=== PATIENT | male | born 2000 | race Caucasian/White ===

== ENCOUNTER 2024-08-10 12:20 | Outpatient (AMB) | payer OTHER, SELFPAY ==
--- NOTE | 2024-08-10 12:25 | A.OFFPC_ITS ---
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 His past medical history is significant for night terrors, though the episodes have not been occurring frequently or with significant intensity lately. He denies any active symptoms such as chest pain, shortness of breath, anxiety, depression, or gastrointestinal or urinary abnormalities. The patient also reports no ideations of self-harm or harm to others. Health Maintenance Social History Review of Systems - General: Denies anxiety, depression - Cardiovascular: Denies chest pain - Respiratory: Denies shortness of breat h - Gastrointestinal: Denies blood in stoo l, constipation, diarrhea - Genitourinary: Denies urinary issues - Psychiatric: Denies suicidal ideation, homicidal ideation Physical Exam General: Cooperative, healthy appearing, comfortable, no acute distress and well developed Orientation: Patient oriented x3 Limitations: No limitations Head: Normal to inspection Ears: Hearing grossly normal bilaterally Nose: Normal external nose present Face and sinus: Normal facial exam Eyes: Appearance normal, both eyes and all related structures Neck: Normal visual inspection and Yes full ROM Respiratory: Normal respiratory effort and able to speak in complete sentences. Clear to auscultation bilaterally Cardiovascular: Regular rate and rhythm. Normal S1 and S2 GI: Normal to inspection. Soft to palpation and nontender Skin: No rashes or lesions noted Neuro: Patient oriented x3 Extremities: Normal to inspection Results Plan The management focus for today?s visit was the patient's history of night terrors, which he indicates have improved over time. Given the improvement and lack of new symptoms, no immediate intervention is necessary. Regular follow-ups can be scheduled to monitor any changes in the condition. Discussion Notes During today's visit, I discussed the patient's history of night terrors, noting the recent improvement in symptoms. We reviewed that no active symptoms such as anxiety, depression, or physical concerns are present, contributing to the decision to continue monitoring the condition without specific intervention. Follow-up can be planned if any symptoms reappear or worsen. Patient Instructions - Maintain current lifestyle and note an y changes in the frequency or severity of night terrors. - Monitor for any new symptoms such as a nxiety or sleep disturbances. - Seek medical advice if there is a recu rrence or worsening of night terrors. [facility] Medical History Night terrors Surgical History [place] teeth extracted S/P ASA (advanced surface ablation) surgery PRK (photorefractive keratectomy) Family History Father Diabetes Mother No problems noted. Social History Housing: House Patient Tobacco Use Status: Never used Tobacco e-Cigarette/Vaping Use: Never Used service: Yes Current occupational status: employed Cognitive needs: No Hearing needs: No Vision needs: No Questionnaire PHQ-9 Over the last 2 weeks, how often have you been bothered by any of the following problems? 1. Little interest or pleasure in doing things: not at all 2. Feeling down, depressed, or hopeless: not at all 3. Trouble falling or staying asleep, or sleeping too much: several days 4. Feeling tired or having little energy: several days 5. Poor appetite or overeating: not at all 6. Feeling bad about yourself - or that you are a failure or have let yourself or your family down: not at all 7. Trouble concentrating on things, such as reading the newspaper or watching television: not at all 8. Moving or speaking so slowly that other people could have noticed. Or the opposite - being so fidgety or restless that you have been moving around a lot more than usual: not at all 9. Thoughts that you would be better off or of hurting yourself in some way: not at all Total score: 2 Depression Screening Interpretation: Negative Depression Screening Done: Yes 80801 - PHQ-9 Billing: Yes Source: Developed by Drs. Alcides Herrera, Stephanie Burt, Paul Brunson and colleagues, with an educational cleopatra from [employer] Thrive Questionnaire Date Thrive assessed: 08/10/24 I am a: Patient What is your living situation today?: I have a steady place to live Within the past 12 months, did the food you bought not last and you didn't have the money to get more?: Never true Within the past 12 months, did you worry whether your food would run out before you got money to buy more?: Never true Do you have trouble paying for medicines?: No Do you have trouble getting transportation to medical appointments?: No Do you have trouble paying your heating and electricity bill?: No Do you have trouble taking care of your child, family member or friend?: No Do you have trouble with day-to-day activities such as bathing, preparing meals, shopping, managing finances, etc.?: No Are you currently unemployed and looking for a job?: No Are you interested in more education?: No Please select the resources that you would like help with: None Currently or been in a relationship where the following occur: No concerns reported THRIVE Score: 0 AUDIT C Alcohol Use Questionnaire (AUDIT-C) 1. How often do you have a drink containing alcohol?: Monthly or less 2. How many drinks containing alcohol do you have on a typical day when you are drinking?: 1 or 2 3. How often do you have six or more drinks on one occasion?: Never Total Score: 1 KELLY-7 AMB Questionnaire KELLY-7 Date KELLY - 7 assessed: 08/10/24 Feeling nervous, anxious, or on edge: 0 = Not at all Not being able to stop or control worryin = Not at all Worrying too much about different things: 0 = Not at all Trouble relaxin = Not at all Being so restless that it is hard to sit still: 0 = Not at all Becoming easily annoyed or irritable: 0 = Not at all Feeling afraid as if something awful might happen: 0 = Not at all Total KELLY-7 score (0-4 normal; 5-9 mild; 10-14 moderate; 15-21 severe): 0 Source: Developed by Drs. Alcides Herrera, Stephanie Burt, Paul Brunson and colleagues, with an educational cleopatra from [employer] KELLY-7 Assessment Billing KELLY-7 Assessment Tool: KELLY-7 Assessment 55441 Physical exam (Primary Care) Vital Signs: Last Vital Signs Temp 98.4 F 08/10/24 12:27 Pulse 82 08/10/24 12:27 Resp 18 08/10/24 12:27 BP 116/70 08/10/24 12:27 Pulse Ox 98 08/10/24 12:27 Oxygen Delivery Method Room Air 08/10/24 12:27 BMI result Body Mass Index 21.2 Tobacco/Smoking Status: Tobacco use Status Tobacco use date assessed 08/10/24 08/10/24 12:34 Patient Tobacco Use Status Never used Tobacco 08/10/24 12:34 e-Cigarette/Vaping Use Never Used 08/10/24 12:34 PHQ-9: PHQ-9 Score PHQ-9: Total score 2 08/10/24 12:34 Depression Screening Interpretation: Negative Thrive Assessment: Date of Thrive Assessment Date Thrive assessed 08/10/24 08/10/24 12:34 Currently or been in a relationship where the following occur: No concerns reported Coding Level of Care Code New Pt Prev Care 18-39yr(42059 Diagnoses Physical exam Z00. Additional Codes KELLY-7 Assessment Billing - KELLY-7 Assessment Tool: KELLY-7 Assessment 83502 ([id number]) PHQ-9 - 98406 - PHQ-9 Billing: Yes ([id number]) Assessment & Plan Assessment & Plan (1) Physical exam: Code(s): Z00.00 - Encounter for general adult medical examination without abnormal findings Category: Medical Plan . Orders: Orders 2 Comprehensive [place]. Panel Fast Today Z00.00 - Encounter for general adult medical examination without abnormal findings TSH reflex Free T4 Today Z00.00 - Encounter for general adult medical examination without abnormal findings UA CC w/rflx Micro + Cult Today Z00.00 - Encounter for general adult medical examination without abnormal findings Complete Blood Count Auto Diff Today Z00.00 - Encounter for general adult medical examination without abnormal findings Lipid Panel Today Z00.00 - Encounter for general adult medical examination without abnormal findings
[2024-08-10 12:27] VITALS: BP 116/70; PULSE 82; RESP 18; TEMP 36.9; O2SAT 98; BMI 21.2
--- OUTSIDE RECORDS SUMMARY | 2024-08-10 15:13 | XMS_ITS | Continuity of Care Document ---
Author Organization [facility] Address [address] [place] [address] Phone Care Team Providers Care Office Agent Name Role Phone Randall Barrientos OD Unavailable Unavailable Allergies, Adverse Reactions, Alerts Substance Reaction Status Criticality No Known Allergies Active No Inform ation Procedures Procedure Date Corneal Top Corneal Top Advance Directives Directive Yes / No Effective Date File Name No Information Encounters Encounter Description Practice Location Reason(s) For Visit Diagnoses Date Provider Providers Copied on Encounter [facility], [address] [place], [place], [id number], tel:[phone] [place] [facility] Topography testing only (chief complaint)To pography testing only (chief complaint) Keratoconus Nos Floyd Pereira. [address] [place], [address], [place]. tel:[phone] Referring Provider: Elijah Moralez, [address], [address] [facility], [place], [address]. tel:[phone] Family History Family Member Type Diagnosis Age At Onset No Information Payers Payer name Insurance type Covered democrat ID Authoriza tion(s) No Information Social History Type Description Quantity Date Captured Comments Alcohol Use Details No Caffeine Use Details No Tobacco Use Status Never smoked tobacco 2013 Smoking Status Never smoker Non-Smoking Tobacco Use Details : No Details Available : No Details Available Sex Male Chief Complaint And Reason For Visit From encounter dated '06/12/2014 13:00'. Topography testing only (chief complaint). Description: The 14 Year 3 Months old male presents for evaluation of Topography testing only in the right eye and left eye. Topography testing only (chief complaint) Reason For Referral Reason For Referral No Information History Of Present Illness Encounter Date Complaint History Of Prese nt Illness Topography testing only The 14 Y ear 3 Months old male presents for evaluation of Topography testing only in the right eye and left eye. Functional Status Date Functional Assessmen t No Information Instructions Date Instruction Additional Infor mation - Patient presents f or topography in both eyes. Patients father understands we will only be performing test. Results to be reviewed and interpreted by Dr. Gregg. Results will be mailed out today. Related to Keratoconus Nos - Return in PRN Related to Kerat oconus Nos Assessments Type Assessment Date assessment Keratoconus Nos Patient Care Teams Name Effective Dates (start - stop) Status Members No Information
== END 2024-08-10 14:23 | disposition home or self-care (01) ==
PROVIDERS: PCP Internal Medicine; Visit Provider Nurse Practitioner Family
DX: Z00.00 Encounter for general adult medical examination without abnormal findings (principal)

== ENCOUNTER → 2024-08-10 12:20 | Outpatient (BNVA) | payer OTHER, SELFPAY | PROVIDERS: PCP Internal Medicine; Visit Provider Nurse Practitioner Family | DX: Z00.01 Encounter for general adult medical examination with abnormal findings (principal); R22.1 Localized swelling, mass and lump, neck | CPT/HCPCS: 96127 ==

== ENCOUNTER 2024-08-11 08:18 | Outpatient (REF) | payer OTHER, SELFPAY ==
--- OUTSIDE RECORDS SUMMARY | 2024-08-11 08:45 | XMS_ITS | Continuity of Care Document ---
Author Organization [facility] Address [address] [place] [address] Phone Care Team Providers Care Diamond Expert Name Role Phone Ranadll Barrientos OD Unavailable Unavailable Allergies, Adverse Reactions, Alerts Substance Reaction Status Criticality No Known Allergies Active No Inform ation Procedures Procedure Date Corneal Top Corneal Top Advance Directives Directive Yes / No Effective Date File Name No Information Encounters Encounter Description Practice Location Reason(s) For Visit Diagnoses Date Provider Providers Copied on Encounter [facility], [address] [place], [place], [id number], tel:[phone] [place] - [facility] Topography testing only (chief complaint)To pography testing only (chief complaint) Keratoconus Nos Floyd Pereira. [address] [place], [address], [place]. tel:[phone] Referring Provider: Elijah Moralez, [address], [address] [facility], [place], [address]. tel:[phone] Family History Family Member Type Diagnosis Age At Onset No Information Payers Payer name Insurance type Covered libertarian ID Authoriza tion(s) No Information Social History [...]
--- OUTSIDE RECORDS SUMMARY | 2024-08-11 08:45 | XMS_ITS | Continuity of Care Document ---
Author Name [facility] Organization [facility] Care Team Providers Care Site Manager Name Role Phone [facility] Unavailable Unavailable Problems Combined list of problems from Department of Defense and Veterans Affairs facilities. It does not include entries that were removed or entered in error. 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 Active 4 Diagnosis [facility] Claustrophobia Active Condition [facility] Interrupted sleep Active Condition 0310 C-AF-C-[facility] Nightmares Active Condition 0310C-AF-C- [facility] pain of left knee Active Condition 0094 C[facility] Pain of right knee Active Condition 009 4C[facility] Screening due Active Condition Unknown Organization Sleep deprivation Active Condition 0006 C[facility] Tinnitus Active Condition 00[facility] Vertigo Active Condition [facility] Allergies, Adverse Reactions, Alerts Combined list of allergies from Department of Defense and Veterans Affairs facilities. It does not include entries that were removed or entered in error. Substance Category Reaction Severity Reaction type Status Date Reported Comments Source No Known Allergies Drug allergy (disorder) active 08/24/2022 [facility] Immunizations Combined list of available immunizations from the Department of Defense and Veterans Affairs facilities. Immunization Series Date Given Administered By Site Reaction Lot Number CVX Code Drug Wool Sacker Status Comments Source influenza virus vaccine, inactivated 2022 ESTEPHANIA Alves reina, left (delt oid) [id number] [place], A [employer] complet ed influenza virus vaccine, inactivat ed 04/14/23 Given - Medical Group influenza virus vaccine, inactivated 2021 OMIDLISA GIRALDO Shoul reina, left (delt oid) [id number] [employer] complet ed influenza virus vaccine, inactivat ed 03/13/22 Given 0006C[facility] influenza virus vaccine, inactivated 2020 NELA R Shoul reina, left (delt oid) [id number] 158 Seqirus, A [employer] complet ed influenza virus vaccine, inactivat ed 03/29/21 Given 0006[facility] influenza, injectable, quadrivalent 2020 MARIANN UPTON [id number] 158 complet ed Result Comment: Route: Unknown Manufactu rer: [facility] (SEQ) - Medical Group COVID Vaccine Pfizer 2020 RON YUN Shoul reina, right (delt oid) [id number] PFIZER complet ed COVID Vaccine Pfizer 10/16/20 Given 0006[facility] COVID Vaccine Pfizer 2020 KAITLYNRALEXA NDER Shoul reina, right (delt oid) [id number] 208 PFIZER complet ed COVID Vaccine Pfizer 09/25/20 Given 0006[facility] influenza, injectable, quadrivalent 2019 MARIANN UPTON [id number] 158 complet ed Result Comment: Route: Unknown Manufactu rer: [facility] (SEQ) - Medical Group influenza, injectable, quadrivalent- pf 2018 [id number] 150 [employer] complet ed influenza , injectabl e, quadrival ent-pf 04/29/19 Given Ambulat ory Pharmac y Influenza, injectable, quadrivalent, preservative free 2 2018 [id number] 150 [employer] (SEQ) complet ed Influenza , injectabl e, quadrival ent, preservat leah free DoD influenza, injectable, quadrivalent- pf 2018 [id number] 150 GlaxoSmithKli ne complet ed influenza , injectabl e, quadrival ent-pf 08/12/18 Given Ambulat ory Pharmac y tetanus, diphtheria, acellular pertu is 2018 [id number] 115 [employer] il complet ed tetanus, diphtheri a, acellular pertussis 08/12/18 Given Ambulat ory Pharmac y meningococcal A,C,Y,W-135 (MCV4P) 2018 [id number] 114 sanofi pasteur complet ed meningoco ccal A,C,Y,W-1 35 (MCV4P) 08/12/18 Given Ambulat ory Pharmac y adenovirus vaccine, live 2018 [id number] 143 Teva Pharmaceutica ls complet ed adenoviru s vaccine, live 08/12/18 Given Ambulat ory Pharmac y poliovirus vaccine, inactivated 2018 [id number] 10 sanofi pasteur complet ed polioviru s vaccine, inactivat ed 08/12/18 Given Ambulat ory Pharmac y poliovirus vaccine, inactivated 1 2018 [id number] 10 Sanofi Pasteur (PMC) complet ed polioviru s vaccine, inactivat ed DoD meningococcal polysaccharid e (groups A, C, Y and W-135) diphtheria toxoid conjugate vaccine (MCV4P) 1 2018 [id number] 114 Sanofi Pasteur (PMC) complet ed meningoco ccal polysacch aride (groups A, C, Y and W-135) diphtheri a toxoid conjugate vaccine (MCV4P) DoD tetanus toxoid, reduced diphtheria toxoid, and acellular pertu is vaccine, adsorbed 1 2018 [id number] 115 fitaborateHamlin (SKB) complet ed tetanus toxoid, reduced diphtheri a toxoid, and acellular pertussis vaccine, adsorbed DoD Adenovirus, type 4 and type 7, live, oral 1 2018 [id number] 143 [facility] ([facility]R) complet ed Adenoviru s, type 4 and type 7, live, oral DoD Influenza, injectable, quadrivalent, preservative free 1 2018 [id number] 150 [employer] (SKB) complet ed Influenza , injectabl e, quadrival ent, preservat leah free DoD measles virus vaccine 0 2018 05 () Not Given measles virus vaccine DoD rubella virus vaccine 0 2018 06 () Not Given rubella virus vaccine DoD mumps virus vaccine 0 2018 07 () Not Given mumps virus vaccine DoD varicella virus vaccine 0 2018 21 () Not Given varicella virus vaccine DoD hepatitis B vaccine, unspecified formulation 0 2018 45 () Not Given hepatitis B vaccine, unspecifi ed formulati on DoD hepatitis A vaccine, adult dosage 0 2018 52 () Not Given hepatitis A vaccine, adult dosage DoD Results Combined list of recent chemistry, hematology and other laboratory results from Department of Defense and Veterans Affairs, ranging from 15 months to all on record, depending upon the facility. Order Name Results Value Reference Range Date Interpretation Specimen Comments Source Infectio us Disease HIV-1/O/2 NON REACTIVE 11/17 Interpretiv e Data: INTERPRETAT ION: This method is a screening procedure for the detection of HIV p24 Antigen and Antibodies to HIV-1, including Group O, and/or HIV-2. NON-REACTIV E: HIV-1 antigen and HIV-1 / HIV-2 antibodies were not detected. No laboratory evidence of HIV infection. A negative test result does not exclude the possibility of exposure to or infection with HIV. HIV antibodies and/or p24 antigen may be undetectabl e in some stages of the infection and in some clinical conditions. If acute HIV infection is suspected, consider submitting another specimen to a reference laboratory for HIV-1 RNA. SCREEN REACTIVE - CONFIRMATIO N TO FOLLOW: Possible presence of HIV-1antibo dies, HIV-2 antibodies and/or HIV-1 p24 antigen. Specimen will reflex to the confirmatio n testing that fulfills the Center for Disease Control and Prevention' s HIV diagnostic algorithm. Refer to [facility] Lab Guide for additional information : https://Graffiti[employer]x. health.[facility]/ kj/kx5/EPIL ab/Pages/la b_guide.asp x Testing performed by Jhoana rodriguez. 5600A-[facility] Miscella neous Sendouts Repository Sample Received (11/17/22 8:54 AM) 11/17 N 5600ACivolution AP Specimen s Pathology Report.LC Comment 09/20 Result Comment: . 01 Material submitted: abdomen - RIGHT LOWER ABDOMEN . 01 Clinical history: CLINICAL: 21 Y/O MALE WITH LIFELONG... PRE-OP: CONGENITAL VUS VS TRAUMAT... POST-OP: GINA . 01 * Diagnosis: Right Lower Abdomen, Biopsy: Irritated compound melanocytic nevus. MRV 09/24/2021 1150 Local . 01 Electronica lly signed: Domi España MD, Dermatopath ologist NPI- [id number] . 01 Gross description : RIGHT LOWER ABDOMEN: Received in formalin is 1 piece of SEGMENT OF SKIN measuring 0.9 x 0.6 x 0.3 cm which is inked trisected and submitted in toto in 1 cassette. /SADIA 09/23/2021 2325 Local . 01 Pathologist provided ICD-10: D22.9 . 01 CPT 894983 Performed At: 01 [facility] [address] [place] [address] [place] [address] [id number] Servando Marley MD Ph:[phone] 0006A-[facility] Infectio us Disease SARS-CoV-2 PCR Positive 4 *ABN* (06/24/21 10:03 AM) 06/24 A Interpretiv e Data: Normal Value: NEGATIVE for all targets POSITIVE: Specified target viral RNA detected NEGATIVE: Specified target viral RNA NOT detected Interpretat ion: The Snapstream Xpert Xpress SARS-CoV-2/ Flu/RSV test is a rapid, multiplexed real-time RT-PCR test intended for the simultaneou s qualitative detection and differentia tion of SARS-CoV-2, influenza A, influenza B, and respiratory syncytial virus (RSV) viral RNA in nasopharyng eal swab specimens. SARS-CoV-2, influenza A, influenza B and RSV RNA identified by this test are generally detectable in upper respiratory specimens during the acute phase of infection. Positive results are indicative of the presence of the identified virus, but do not rule out bacterial infection or co-infectio n with other pathogens not detected by the test. Clinical correlation with patient history and other diagnostic information is necessary to determine patient infection status. The agent detected may not be the definite cause of disease. Negative results do not preclude SARS-CoV-2, influenza A virus, influenza B virus and/or RSV infection and should not be used as the sole basis for treatment or other patient management decisions. Negative results must be combined with clinical observation s, patient history, and/or epidemiolog ical information . 0006A-A[facility]x nt [facility] Disease Reason for Test? Screenin g (06/24/21 10:03 AM) 06/24 N 0006A-[facility]x nt [facility] Disease HIV-1/O/2. EPI NON-REAC TIVE 08/29 Result Comment: INTERPRETAT ION(S): This method is a screening procedure for the detection of HIV p24 Antigen and Antibodies to HIV-1, including Group O, and/or HIV-2. NON-REACTIV E: HIV-1 antigen and HIV-1 / HIV-2 antibodies were not detected. No laboratory evidence of HIV infection. A negative test results does not exclude the possibility of exposure to or infection with HIV. HIV antibodies and/or p24 antigen may be undetectabl e in some stages of the infection and in some clinical conditions. If acute HIV infection is suspected, consider submitting another specimen to a reference laboratory for HIV-1 RNA. SCREEN REACTIVE - CONFIRMATIO N TO FOLLOW: Possible presence of HIV-1 antibodies, HIV-2 antibodies and/or HIV-1 p24 antigen. Specimen will reflex to the confirmatio n testing that fulfills the Center for Disease Control and Prevention' s HIV diagnostic algorithm. Refer to [facility] Lab Guide for additional information : [email or web address] .[facility]/k amy/kx5/Aron b/Pages/lab _guide.aspx Testing performed by Jhoana rodriguez. Performed by: Epidemiolog y Laboratory Service [facility] [address] [place] [address], [place] [address] 0006A-[facility] Vital Signs Combined list of inpatient and outpatient Vital Signs from Department of Defense and Veterans Affairs, ranging from 12 months to all on record, depending upon the facility. Vital Sign Value Date Comments Source BP Site Right arm 03/03/2023 13:27:[address] [place] [address] Group Temperature Oral 36.9 [place] 03/03/2023 13:27:[address] [place] [address] Respiratory Rate 16 br/min 03/03/2023 13:27:[address] [place] [address] Blood Pressure Manual Automatic 03/03/2023 13:27:[address] [place] [address] Mean Arterial Pressure, Calc 85 mm[Hg] 03/03/2023 13:27:[address] [place] [address] Systolic Blood Pressure 108 mm[Hg] 03/03/20 13:27:[address] [place] [address] Diastolic Blood Pressure 73 mm[Hg] 023 13:27:[address] [place] [address] Peripheral Pulse Rate 83 bpm 03/03/2023 13:27:[address] [place] [address] Temperature Temporal Artery 36.3 [place] 01/16/2021 01:35:00 [facility] Blood [facility] Manual Automatic 05/28/2020 18:31:00 [facility] BP Site Right arm 05/28/2020 18:31:00 [facility] Temperature Temporal Artery 36.3 [place] 11/20/2020 15:10:00 [facility] Blood Pressure Manual Automatic 04/08/2021 17:43:00 [facility] BP Site Right arm 04/08/2021 17:43:00 [facility] Respiratory Rate 16 br/min 04/08/2021 17:43:00 [facility] Systolic Blood Pressure 100 mm[Hg] 04/08/20 17:43:00 [facility] Diastolic Blood Pressure 63 mm[Hg] 021 17:43:00 [facility] Mean Arterial Pressure, Calc 75 mm[Hg] 04/08/2021 17:43:00 [facility] Peripheral Pulse Rate 76 bpm 04/08/2021 17:43:00 [facility] Peripheral Pulse Rate 71 bpm 08/26/2023 19:22:[address] Mean Arterial Pressure, Calc 83 mm[Hg] 08/26/2023 19:22:[address] Blood Pressure Manual Automatic 08/26/2023 19:22:[address] Group BP Site Right arm 08/26/2023 19:22:[address] Group Respiratory Rate 16 br/min 08/26/2023 19:22:[address] Group Temperature Oral 37.2 [place] 08/26/2023 19:22:[address] Group Systolic Blood Pressure 104 mm[Hg] 08/26/19 24 19:22:[address] Group Diastolic Blood Pressure 72 mm[Hg] 024 19:22:[address] Systolic Blood Pressure 104 mm[Hg] 02/05/20 21 15:57:00 [facility] Diastolic Blood Pressure 69 mm[Hg] 021 15:57:00 [facility] Mean Arterial Pressure, Calc 81 mm[Hg] 02/04/2021 15:57:00 [facility] Peripheral Pulse Rate 75 bpm 02/04/2021 15:57:00 [facility] Respiratory Rate 14 br/min 02/04/2021 15:57:00 [facility] BP Site Right arm 02/04/2021 15:57:00 [facility] Blood Pressure Manual Automatic 02/04/2021 15:57:00 [facility] Temperature Oral 36.6 [place] 06/23/2022 16:31:[address] Group Respiratory Rate 16 br/min 06/23/2022 16:31:00 [facility] Peripheral Pulse Rate 68 bpm 06/23/2022 16:31:00 0094[facility] Mean Arterial Pressure, Calc 83 mm[Hg] 06/23/2022 16:31:00 0094[facility] Systolic Blood Pressure 108 mm[Hg] 06/23/19 16:31:00 0094[facility] Diastolic Blood Pressure 71 mm[Hg] 023 16:31:00 0094[facility] Blood Pressure Manual Automatic 06/23/2022 16:31:00 0094[facility] BP Site Left arm 06/23/2022 16:31:00 0094[facility] Temperature Temporal Artery 36.6 [place] 05/07/2021 10:26:00 [facility] Systolic Blood Pressure 106 mm[Hg] 05/07/20 10:26:[address] [place] [address] Diastolic Blood Pressure 67 mm[Hg] 021 10:26:00 [facility] Peripheral Pulse Rate 64 bpm 05/07/2021 10:26:00 [facility] Respiratory Rate 14 br/min 05/07/2021 10:26:00 [facility] Peripheral Pulse Rate 60 bpm 09/15/2022 14:00:00 009[facility] Mean Arterial Pressure, Calc 73 mm[Hg] 09/15/2022 14:00:00 [facility] Respiratory Rate 16 br/min 09/15/2022 14:00:00 [facility] Temperature Oral 36.5 [place] 09/15/2022 14:00:00 009-[facility] BP Site Right arm 09/15/2022 14:00:00 0094[facility] Blood Pressure Manual Automatic 09/15/2022 14:00:00 009-[facility] Systolic Blood Pressure 94 mm[Hg] 09/16/19 14:00:00 0094[facility] Diastolic Blood Pressure 63 mm[Hg] 023 14:00:00 0094[facility] Respiratory Rate 14 br/min 10/14/2023 15:43:00 0094[facility] Temperature Oral 37.0 [place] 10/14/2023 15:43:00 009[facility] Blood Pressure Manual Automatic 10/14/2023 15:43:[address] [place] [address] Group BP Site Left arm 10/14/2023 15:43:00 [facility] Systolic Blood Pressure 116 mm[Hg] 10/14/19 24 15:43:[address] [place] [address] Group Diastolic Blood Pressure 81 mm[Hg] 024 15:43:[address] [place] [address] Group Peripheral Pulse Rate 83 bpm 10/14/2023 15:43:[address] [place] [address] Group Mean Arterial Pressure, Calc 93 mm[Hg] 10/14/2023 15:43:[address] [place] [address] Group Systolic Blood Pressure 107 mm[Hg] 05/22/20 15:54:[address] [place] [address] Group Diastolic Blood Pressure 71 mm[Hg] 022 15:54:[address] [place] [address] Group Temperature Oral 36.7 [place] 05/22/2022 15:54:[address] [place] [address] Group BP Site Left arm 05/22/2022 15:54:[address] [place] [address] Group Blood Pressure Manual Automatic 05/22/2022 15:54:[address] [place] [address] Group Mean Arterial Pressure, Calc 83 mm[Hg] 05/22/2022 15:54:[address] [place] [address] Group Peripheral Pulse Rate 75 bpm 05/22/2022 15:54:[address] [place] [address] Group Respiratory Rate 14 br/min 05/22/2022 15:54:[address] [place] [address] Group Mean Arterial Pressure, Calc 89 mm[Hg] 11/21/2020 22:09:[address] [place] [address] Temperature Oral 36.5 [place] 11/21/2020 22:09:[address] [place] [address] Systolic Blood Pressure Sitting 118 mm[Hg] 11/21/2020 22:09:[address] [place] [address] Diastolic Blood Pressure Sitting 73 mm[Hg] 11/21/2020 22:09:[address] [place] [address] Systolic Blood Pressure Supine 118 mm[Hg] 11/21/2020 22:09:[address] [place] [address] Diastolic Blood Pressure Supine 77 mm[Hg] 11/21/2020 22:09:[address] [place] [address] Systolic Blood Pressure Standing 120 mm[Hg] 11/21/2020 22:09:[address] [place] [address] Diastolic Blood Pressure Standing 79 mm[Hg] 11/21/2020 22:09:[address] [place] [address] Systolic Blood Pressure 100 mm[Hg] 01/24/20 21 16:52:[address] [place] [address] Diastolic Blood Pressure 58 mm[Hg] 021 16:52:[address] [place] [address] Blood Pressure Manual Automatic 01/23/2021 16:52:[address] [place] [address] BP Site Right arm 01/23/2021 16:52:[address] [place] [address] Respiratory Rate 12 br/min 01/23/2021 16:52:[address] [place] [address] Peripheral Pulse Rate 77 bpm 01/23/2021 16:52:[address] [place] [address] Mean Arterial Pressure, Calc 72 mm[Hg] 01/23/2021 16:52:[address] [place] [address] Encounters Combined list of: 1) Encounters from Department of Veterans Affairs facilities going backup to the last 18 months, not all VA inpatient encounters are included; 2) Encounters from the Department of Defense facilities going backup to 280 months. Location Location Details Encounter Type Encounter Number Reason For Visit Attending Provider ADM Date DC Date Status Disposition Source [place] [address](Opt ometry Clinic [facility]) OUTPATIENT [id number] CAROLINE FOOTE 08/16 Released w/o Limitations [facility] [place] [address](O ptometr y Clinic [facility]) [place] [address](Hea ring Conservat ion, BMT) OUTPATIENT [id number] MANDO BAUM 08/16 Released w/o Limitations [facility] [place] [address](H earing Conserv ation, BMT) [facility] [place] [address]([facility]) OUTPATIENT [id number] Notes Entered by: NAHUM ISAACS 18 Aug 2018 1337 ------- ------- ------- ------- -- Blood in stool YAQUELINZAFAR AMADOR Crystal 08/18 Released w/o Limitations [facility] [place] [address]([facility] sangita) [facility] [place] [address]([facility]) OUTPATIENT [id number] Notes Entered by: Sangita ESTEBAN 26 Aug 2018 1055 ------- ------- ------- ------- -- *Abdomi nal Discomf ort* JUDY GARCIA V 08/26 Released w/o Limitations [facility] [place] [address]([facility] sangita) [place] [address]([facility] [place]) OUTPATIENT [id number] fiber nutriti on VERN TEJEDA 08/27 Released w/o Limitations [facility] [place] [address](N utritio nal Medicin e, [place]) [place] [place] [id number] OSS/ALA SKA/AF MUSHT[employer] STARR 10/29 Released w/o Limitations [place]) [place]) OUTPATIENT [id number] KATE PIRES 12/06 Released w/o Limitations [place]) [employer]([facility]) OUTPATIENT [id number] ASM OHA (AUDIO) RAFA TORRES 05/26 Released w/o Limitations [employer](O ccupati onal Health) [employer](BOM C 1) OUTPATIENT [id number] Notes Entered by: RASHMI WOOD 27 May 2019 1326 ------- ------- ------- ------- -- DENTAL PHA/MHA ZENOBIA SINGER 05/27 Released w/o Limitations [employer]([facility] 1) [employer](Opt ometry Clinic) OUTPATIENT [id number] Annual exam JUAN ALBERTO LOVETT 06/13 Released w/o Limitations [employer](O ptometr y Clinic) [employer](Opt ometry Clinic) OUTPATIENT [id number] CL F/U JUAN ALBERTO LOVETT 11/22 Released w/o Limitations [employer](O ptometr y Clinic) [facility] Between Visit [id number] 09/13 Discharge Disposition: Home or Self Care - Medical Group [facility] Clinic [id number] EXAM, FORMAL OCCUPAT IONAL HEALTH PROGRAM INCLUDI HEARING CONSERV ATION PROGRAM , MARYLIN Jackson FOR CONTINU ED 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 CHLOE SJAMES 10/13 Discharge Disposition: Home or Self Care - Medical Group [facility] Group Dental [id number] JUVE JULIAN ESTEVES 10/18 Discharge Disposition: Home or Self Care - Medical Group 0AF- C- [facility] [employer] Between Visit [id number] 05/25 Discharge Disposition: Home or Self Care 0310C-A F-C-66t h [facility] [employer] 0310C-AF- C- [facility] [employer] Clinic [id number] Nightma re disorde r,Insom kristen, unspeci fied,EX AM/ASSE SSMENT, OCCUPAT IONAL, PRODUCTION HAND PERIODI C HEALTH ASSESSM ENT (SILVIA) GAURANG COTTO 05/27 Discharge Disposition: Home or Self Care 0310C-A F-C-[facility]t [facility] [employer] Procedures Combined list of: 1) Procedures from Department of Veterans Affairs facilities going back up to thelast 18 months, not all VA non-surgical procedures are included; 2) All procedures from the Department of Defense facilities. Procedure Procedure Type Code Date Perfomer Comments Sourc e PATIENT EDUCATION, NOT OTHERWISE CLASSIFIED, NON-PHYSICIAN PROVIDER, GROUP, PER SESSION [facility] MEDICAL NUTRITION THERAPY; INITIAL ASSESSMENT AND INTERVENTION, INDIVIDUAL, [id number] WITH THE PATIENT, EACH 15 MINUTES [facility] PURE TONE AUDIOMETRY (THRESHOLD); AIR ONLY [facility] SCREENING TEST OF VISUAL ACUITY, QUANTITATIVE, BILATERAL [facility] OPHTHALMOLOGICAL SERVICES: MEDICAL EXAMINATION AND EVALUATION, WITH INITIATION OR CONTINUATION OF DIAGNOSTIC AND TREATMENT PROGRAM; INTERMEDIATE, ESTABLISHED PATIENT [facility] FITTING OF SPECTACLES, EXCEPT FOR APHAKIA; MONOFOCAL [facility] ADMINISTRATION OF PATIENT-FOCUSED HEALTH RISK ASSESSMENT INSTRUMENT (EG, HEALTH HAZARD APPRAISAL) WITH SCORING AND DOCUMENTATION, PER STANDARDIZED INSTRUMENT [facility] SCREENING TEST OF VISUAL ACUITY, QUANTITATIVE, BILATERAL [facility] Medical Nutrition Therapy Initial A e ment, Intervention Medical Nutrition Therapy Initial Assessment, Intervention [id number] VERN TEJEDA [facility] Threshold Audiogram (Pure Tone) Threshold Audiogram (Pure Tone) [id number] MANDO BAUM [facility] Spectacles Services Fitting Monofocals (Not For Aphakia) Spectacles Services Fitting Monofocals (Not For Aphakia) 86336 019 MARYAM SCHULTZ Screening Test Of Visual Acuity, Quantitative, Bilateral Screening Test Of Visual Acuity, Quantitative, Bilateral [id number] 019 MARYAM SCHULTZ [facility] Screening Test Of Visual Acuity, Quantitative, Bilateral Screening Test Of Visual Acuity, Quantitative, Bilateral 26902 RAFA TORRES [facility] Ophthalmological New Patient Start Comprehensive Care Ophthalmological New Patient Start Comprehensive Care 36488 JUAN ALBERTO LOVETT Determination Of Refractive State Determination Of Refractive State 39239 JUAN ALBERTO LOVETT Spectacles Services Fitting Monofocals (Not For Aphakia) Spectacles Services Fitting Monofocals (Not For Aphakia) 71267 JUAN ALBERTO LOVETT Prescription & Fitting Bilateral Corneal Lenses (Not Aphakia Prescription & Fitting Bilateral Corneal Lenses (Not Aphakia 28555 JUAN ALBERTO LOVETT Ophthalmological Prior Patient Start Intermediate Level Care Ophthalmological Prior Patient Start Intermediate Level Care 08236 JUAN ALBERTO LOVETT Patient education, not otherwise cla ified, non-physician provider, group, per se KATE Christie [facility] [id number] 0006C-Joint [facility] PRK - October 2020 [id number]-Alyx nt [facility] Social History Combined list of available smoking, tobacco, and other social history from Department of Defense and Veterans Affairs facilities. Social History Type Response Date Comment Sour e Sex Representation Male 01/18/2020 Unknow n Organization This section is an empty social history section. DoD Tobacco Cigarette use: Never-cigarette user. Other Tobacco use: Never-other tobacco user (not cigarettes). Ambulatory Pharmacy Sexual Orientation Ambula tory Pharmacy Gender identity Ambulator y Pharmacy Assessment and Plan Combined list of future care activities from Department of Defense and Veterans Affairs facilities (e.g., assessment and plan notes, appointments, orders, and referrals). Additional future care activities may be listed in the Plan of Care section. Result Assessment and Plan Date Source Assessment and Plan Extracted from:Title : Annual [facility] MHA/PHA Author: DEMARCO REY NP Date: 05/27/24 1.?EXAM/ASSESSMENT, OCCUPATIONAL, PRODUCTION HAND PERIODIC HEALTH ASSESSMENT (PHA) This encounter contains a review of the SM's chronic and active medical conditions since the date of the last PHA on file. SM present for virtual encounter. All age/gender specific CPS IAW USPSTF are up to date. ? IMR- Green.? Profile- none active.? ? +WWQ.? ? This MHA/PHA is for screening purposes only, and is Not to replace a face to face appointment with PCM or other specialty care?if needed. ? SM was informed that?if there are any?health concerns,?it is the SM's responsibility to schedule an appointment with PCM or specialty?care for evaluation and management. ? 2.?Nightmares ?F/U with PCM for evaluation.? SM instructed to report to ER or call suicide Hot line immediatly for any thoughts or plans of harming self or others.? ? 3.?Interrupted sleep ??F/U with PCM for evaluation.? Demarco Rey CTR?IDENTITY MANAGEMENT DEVELOPER-C [facility] Provider Flight Medicine? [address] [place]??[address] [facility], [place] [phone] ? Extracted from:Title: Occupational Health Exam Author: CHLOE BLANCO DO Date: 10/14/23 1.?EXAM, FORMAL OCCUPATIONAL HEALTH PROGRAM INCLUDING HEARING CONSERVATION PROGRAM, PERIODIC FOR CONTINUED SURVEILLANCE FOR OCCUPATIONAL WORKPLACE EXPOSURE Physical exam?without?abnormalities. ? Audiogram reviewed ? ?H1?hearing,?no?asymmetric?hea ring loss,?no significant threshold shift ? ? No occupational injury or illness ? Fitness:?No restrictions. ? Duty:?No restrictions. ? Mobility: World-wide Qualified ? ASIMS:?Yellow for Dental exam. Informed member. ? Counseled on proper use of PPE.? ? F/U with PCM as needed. ? Patient medically cleared for occupational duties?without?restrictions. ? Extracted from:Title: PCS Concern Author: SVETLANA RICKS Date: 08/26/23 1.?Administrative statuses Discussed we do not clear patients for medical clearance. ?That would be through?[facility].?Will defer to for further guidance, but discussed should not be an issue as pt is in good health, has no new medical concerns, and is PCSing to [facility] location. At least med clearance, only thing that was flagged was concerning nightmares, reviewed and cleared by GREGG simon/t PCS stress. Pt to f/u with PCM prn. ? Provided patient?a [facility]?clinic plan of care sheet with detailed instructions to include?info regarding any necessary?f/u recommendations, new Rx, imaging, labs, referrals, BP check instructions, preventative health screening, IMR, Profile, and any additional PCM notes. ? Any items not discussed today based on provider triage and shared decision making between provider/patient,?were recommended to have additional appointments scheduled to discuss. ? ? Patient verbalized understanding and agrees with plan of care. ? ASIMS reviewed. ? Disposition:? ? 1. 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 3. 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 Y. ? 4. Can member complete FA??Y. 5. Quarters?? N ? ? ? Svetlana Ricks [employer], ALEXEY Staff Physician Chemical Processing Laborer, [facility] ([facility]) [employer], [employer] [address], [place], [address] ? ? Total Time:?20?minutes ? Total time includes medical decision making and preparation before the visit, the time spent examining the patient, documentation, and any post-visit care coordination?conducted on the day of the visit.? Some parts of this note were generated using voice-recognition software. Despite real-time proof-reading, supervisor record press errors might still be present. Please call if there are questions.? Extracted from:Title: AUDIOGRAM Author: NAOMI COON Date: 07/09/23 H1 hearing, no STS Extracted from:Title: AUDIOGRAM Note Author: NAOMI COON Date: 07/09/23 Audiogram normal 1. Are you on PRP/ AUOF or Fly Status? [ ] Yes ?[ X]??No. ? 2. 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 YES [ ]???NO??[X ]?ALERT [ ]?CONTROL??[ ] ? 3. Visit for: Hearing Conservation Program: YES [X ]??NO [ ]~Shop:243A ? a. TEST TYPE ??Reference [ ] ??Annual [X ] ??Termination [ ] ??Follow-up #1 [ ] ??Follow-up #2 [ ] ??Non-Hearing Conservation [ ] ??SHPE [ ] ? PHYSIC FINDINGS ? 4.???Member's Audiogram Results Indicate: [ X] No STS?[ ] Positive STS?[ ] Negative STS???[ X] Early warning for decrease in hearing?[ ] N/A ( DD FORM 2215/ Non-Hearing??Conservation ) [ ] Masking Required ? 5. IAW MONIQUE 48-123, Attachment 3, member has a hearing profile of: [ ] H-1?[ X] H-2?[ ] H-3?[ ]??H-4 [ ] N/A ? 6.???Based on member's Audiogram results, the following actions have been taken: ??[ ] Member scheduled for a 14-hour noise-free follow up within 30 calendar days (see STS Follow-Up SF 600). ??[ ] Member completed AF Form 1753 and referred to PCM for ear evaluation. ??[ ] Member was given STS letter. ??[ ] Member's information was entered into STS log. ??[ X] Member will be due for next audiogram in 12 months. ??[ ] N/A ? 7.???The following was accomplished by [employer]: ??[ ] Member was fitted with following hearing protection devices: ??[ X] Member was educated in the proper care and use of hearing protection devices and encouraged to wear hearing protection. ??[ X] Member was educated on his/her audiogram results. ??[X ] LEI Conducted ??[ ] Fitness and Risk required? Extracted from:Title: Sleep Disturbance F/u Author: SVETLANA RICKS Date: 06/06/23 1.?Sleep disorder Asymptomatic for more than a year. -Negative sleep study?previously.? Reports that?his hallucinations were hypnopompic. -Discussed with SGP team,?would like recommendation from mental health regarding current status prior to clearance. -Discussed that?without recommendation from , patient unlikely to be?medically cleared for TDY exercise to [facility] from end of June to August. (on RASHID and RISSA orders) -Follow-up for?mental health appointment. ? ? ? Provided patient?a [employer] [facility]?clinic plan of care sheet with detailed instructions to include?info regarding any necessary?f/u recommendations, new Rx, imaging, labs, referrals, BP check instructions, preventative health screening, IMR, Profile, and any additional PCM notes. ? Any items not discussed today based on provider triage and shared decision making between provider/patient,?were recommended to have additional appointments scheduled to discuss. ? ? Patient verbalized understanding and agrees with plan of care. ? ASIMS reviewed. ? Disposition:? ? 1. Is member deployable?N. 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 3. 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 Y. ? 4. Can member complete FA??Y. 5. Quarters?? N ? ? ? Svetlana Ricks [employer], PA-C Staff Physician Chemical Processing Laborer, [facility] ([facility]) 5 [employer], [address] [employer] [address] [place] [address], [address] ? ? Total Time:?15?minutes ? Total time includes medical decision making and preparation before the visit, the time spent examining the patient, documentation, and any post-visit care coordination?conducted on the day of the visit.? Some parts of this note were generated using voice-recognition software. Despite real-time proof-reading, supervisor record press errors might still be present. Please call if there are questions.? Extracted from:Title: Profile Update Author: SVETLANA RICKS Date: 05/20/23 1.?Night terrors Resolved. -Seen by mental health at the time who attributed it to sleep deprivation (member was PCSing),?MH at the time did recommended?sleep study which was negative. -Discussed that I will?bring member up at the?[facility]?discussion. ?It is my recommendation due to symptom resolution and mental health assessment?the patient's case be removed. -Will f/u with pt regarding board decision ? ? 2.?Sleep walking Resolved. As above. ? Provided patient?a [employer] [facility]?clinic plan of care sheet with detailed instructions to include?info regarding any necessary?f/u recommendations, new Rx, imaging, labs, referrals, BP check instructions, preventative health screening, IMR, Profile, and any additional PCM notes. ? Any items not discussed today based on provider triage and shared decision making between provider/patient,?were recommended to have additional appointments scheduled to discuss. ? ? Patient verbalized understanding and agrees with plan of care. ? ASIMS reviewed. ? Disposition:? ? 1. Is member deployable?N. 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 3. 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 [facility] case review is pending ? 4. Can member complete FA??Y. 5. Quarters?? N ? ? ? Svetlana Ricks [employer], PA-C Staff Physician Chemical Processing Laborer, [facility] ([facility]) [employer], [facility] [employer] [address], [place], [address] ? ? Total Time:?20?minutes ? Total time includes medical decision making and preparation before the visit, the time spent examining the patient, documentation, and any post-visit care coordination?conducted on the day of the visit.? Some parts of this note were generated using voice-recognition software. Despite real-time proof-reading, supervisor record press errors might still be present. Please call if there are questions.? Extracted from:Title: MHA / PHA Author: LING LEONARDO Date: 04/29/23 1.?EXAM/ASSESSMENT, OCCUPATIONAL, PRODUCTION HAND PERIODIC HEALTH ASSESSMENT (PHA) ? ? MHA completed. See note above. Member reports that they are currently in?a? ?sound mental state and denies any mental health or ETOH concerns.? Member denies any suicidal/homicidal ideations, plan, intent or other self-directed violence. No request for medical or mental health appointment at this time.?No?referral indicated at this time ? ? Advised to f/u with PCM as needed. Member verbalized understanding, denies questions and agrees with plan of care.? ? Fitness for duty determination: 1) Meets deployment standards:?Yes? 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 Yes?? 3) Meets retention Standards:? Yes?? 4) Able to complete the Fitness assessment:? Yes ? ? Extracted from:Title: Office Clinic Note Author: BO NEW PA Date: 03/03/23 1.?Pain of right knee Secondary to patella tendinitis, subacute on chronic, benefited in the past with his formal physical therapy ? Moderately tender to palpation along the right patella tendon otherwise unremarkable examination ? Feldene as needed for pain and inflammation Formal physical therapy referral has been placed ? Ordered: piroxicam(Feldene 20 mg oral capsule), 1 cap(s), Oral, Daily, PRN pain (moderate), # 30 cap(s), 0 total refill(s), Maintenance, 1 cap(s) Oral Daily,PRN:pain (moderate), Pharmacy: [facility] [Not filled] Referral Request 2.0 ? 2.?pain of left knee Not demonstrated today, subacute on chronic?per?HPI ? Unremarkable examination today ? Feldene as needed for pain and inflammation Formal physical therapy referral has been placed ? Ordered: piroxicam(Feldene 20 mg oral capsule), 1 cap(s), Oral, Daily, PRN pain (moderate), # 30 cap(s), 0 total refill(s), Maintenance, 1 cap(s) Oral Daily,PRN:pain (moderate), Pharmacy: [facility] [Not filled] Referral Request 2.0 ? Patient declined profile today. ? ? Discussed the plan of care with the patient.?Patient understands and agrees with the plan of care. ? RTC as mentioned above or sooner?for any changes/concerns. ? Contact the clinic for any laboratory/radiology/diagnosti c tests results. ? If any referral have been place today, please contact Referral Management Center today and return or call clinic if any issues with any referral that [facility] cannot resolve. ? A copy of ambulatory patient summary associated with this encounter will be available to the patient through the patient portal. A portion of this note was completed through dictation and use of computer voice recognition software. ? ASIMS reviewed. ? Disposition:? ? 1. 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 3. 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 Y. ? 4. Can member complete FA??Y. 5. Quarters?? N ? ? Maj HOPKINS [employer], ALEXEY? [facility] Medicine [facility] ([facility]) Staff PA 5 [employer], [employer] [facility] [employer]? [address] [place] [address]? [place], [place] [address] ? 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 Prev med counseling? (age/gender specific) ? Exposure questionaire reviewed and attached to EXAM above ? -Reviewed the OEHEDS and COHER specific to the service members P.E.G -No signs or symptoms of [place]-related illness or injury. ? -Exposure concerns noted. ? -Wears PPE at all required times. ? -No medical concerns at this time. ? -No referral indicated. ? -No labs pending. ? -Audiogram complete, no threshold shift? -Return to clinic as needed. ? -Patient agrees with plan, all questions answered. ? -Medications reconciled. -Cleared for continued duty ? ASIMS reviewed, member is currently?not on a profile ? ? Fitness:?No Restrictions ? ? Duty:?No Restrictions ? ? Mobility:?World-wide Qualified ? ? ASIMS status:?Green ? Extracted from:Title: AUDIOGRAM Author: ANN URBAN Date: 07/30/22 Audiogram normal 1.?Are you on PRP/ AUOF or Fly Status? [ ?]?Yes ?[ X?] ?No. ? 2.?Visit for: Hearing Conservation Program: YES [?X?] ?NO [___]~Shop:?243A ? a.?TEST TYPE ??Reference [ ?] ??Annual [X ?] ??Termination [ ?] ??Follow-up #1 [ ?] ??Follow-up #2 [ ?] ??Non-Hearing Conservation [ ?] ??SHPE [ ?] ? 3.?Do you wear hearing aids? [ ] Yes?[ X?] ?No ? 4.??Do you currently have any ear, nose, or throat problems (i.e. cold, sinus infection, allergies, etc.) that are affecting your hearing? [ ] Yes* ?[ X?] ?No ? ? ? 5.??Are you currently experiencing tinnitus (ringing in your ears)? [ ] Yes?[ X?] ?No ? 6.??How many hours/days has it been since you were in an environment where you had to wear hearing protection and/or raise your voice within three feet of someone to communicate? 8 HOURS ? 7.?What type of hearing protection do you use MOST COMMONLY? [ ] N/A?[ X?] ?Handformed (Foamies) ?[ ?] ?Quad-Flange ? ?[ ?] ?Other: ? 8.?Do you wear double hearing protection (two types of hearing protection at the same time)? [X ] Yes?[ ?] ?No ? 9.?What type of double hearing protection do you wear? [ X] Noise Muffs?[ ] Helmet ?[ ?] ?Other: ? 10.?Do you wear safety glasses and/or goggles while performing your duties (when necessary)? [ X] Always [ ] Seldom?[ ?] ?N/A ? 11.???Are you or retiring from the in the next 12 months? [ ] Yes?[ X?] ?No ? 12.?Have you ever had your baseline Audiogram re-established? [ ] Yes ?[ X?] ?No ? ? ? 13.?Have you recently transferred to another shop? [ ] Yes ?[ ?X] ?No ? 14.?Do you work around hazardous noise for at least 8 hours a day? [X ] Yes?[ ?] ?No ? Physical findings? ? 15.???Member's audiogram results indicate: [X ] No STS?[ ] Positive STS?[ ] Negative STS?[ ?] ?N/A (DD Form 2215 / Non-Hearing Conservation) ? 16.???IAW MONIQUE 48-123, Attachment 3, member has a hearing profile of: [X ] H-1?[ ] H-2?[ ] H-3?[ ?] ?H-4 ? 17.???Based on member's audiogram results, the following actions have been taken: ??[ ?] Member scheduled for a 14-hour noise-free follow up within 30 calendar days (see STS Follow-Up SF 600). ??[ ?] Member completed AF Form 0598 and referred to [facility] for ear evaluation. ??[ ] Member was given STS letter. ??[ ?] Member's information was entered into STS log. ??[ X?] Member will be due for next audiogram in 12 months. ??[ ?]?N/A ? 18.???The following was accomplished by Public [facility]: ??[ ?] Member was fitted with following hearing protection devices: ??[ ?X ] Member was educated in the proper care and use of hearing protection devices and encouraged to wear hearing protection. ??[ ?X] Member was educated on his/her audiogram results. ??[ ?X ] LEI Conducted ??[ ?] Fitness and Risk required? EXAM, FORMAL OCCUPATIONAL HEALTH PROGRAM INCLUDING HEARING CONSERVATION PROGRAM, PERIODIC FOR CONTINUED SURVEILLANCE FOR OCCUPATIONAL WORKPLACE EXPOSURE Extracted from:Title: Eye Care Optometry Follow Up Author: JAIME MUSE OD Date: 07/14/22 1.?Right corneal abrasion Resolved, no pain remaining. No folds or irregularities in the cornea noted.?D/c ketorolac, continue oflox QID x 3 more days then d/c. Abrasion was from dog paw, but no evidence of infection at this point. Pt to RTC 1 year for regular eye exam or sooner with any pain or irritation. ? No problems with PRP at this time, pt feels comfortable returning to work. ? For PRAP Disposition please refer to message titled PRAP STAMP. This disposition encompasses all notes associated with this encounter. Extracted from:Title: Eye Care Optometry Acute Author: JAIME MUSE, OD Date: 07/11/22 1.?Right corneal abrasion Rx ofloxacin QID, ketorolac QID. Bandage CL (AO night and day -0.50) inserted in office. Pt is an experienced CL wearer (before PRK). Will touch base with patient tomorrow by phone, he will plan on removing the lens himself at home and replacing it with another fresh lens over the weekend. Pt to take OTC ibuprofen/tylenol as well. Pt ed on painful course of healing over next 48 hours. ? The dog is an inside dog, but still some risk for infection. RTC Thursday morning for evaluation or patient will contact me by phone if symptoms are worsening. ? Duty distracting pain, will relay to [place]. ? ? ? Orders: ketorolac ophthalmic(ketorolac 0.4% ophthalmic solution), 1 drop(s), Eye-Right, QID, X 4 days, # 5 mL, 0 total refill(s), Acute, any NSAID ophthalmic drop substitution is fine, 1 drop(s) Eye-Right QID,x4 days, Pharmacy: [facility] [Not filled] ofloxacin ophthalmic(ofloxacin 0.3% ophthalmic solution), 1 drop(s), Eye-Right, QID, X 5 days, # 5 mL, 0 total refill(s), Acute, 1 drop(s) Eye-Right QID,x5 days, Pharmacy: [facility] [Not filled] For PRAP Disposition please refer to message titled PRAP STAMP. This disposition encompasses all notes associated with this encounter. Extracted from:Title: admin close Author: SHYAM REDMAN PA Date: 07/11/22 1.?Administrative statuses was referred to optometry during their walk in. will admin close. Extracted from:Title: Knee pain follow up Author: JESSICA ELAINE PA Date: 06/23/22 1.?pain of left knee Chronic bilateral knee pain. PE done a month ago with no change in sx. XRs at that time were without significant findings. No improvement with conservative home tx. Will refer to PT for further evaluation and tx. Full eval deferred today as no change or worsening of sx since eval last month. No noted inciting event.? Pt denies duty limitations or distracting sx. Discussed ice therapy and use of NSAIDs and Tylenol PRN. Pt denied need for additional medication at this time.? Will place FR profile to allow for PT and gradual return to activity. Pt is aware to self report any duty distracting sx.? Pt to follow up if sx not improving with PT in 2 months or sooner if sx worsen or change. PVUA. ? Disposition: 1. 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 Y 4. Can member complete FA? Y with restrictions ? Visit summary with updated medication list? provided to the pt. ? 2.?Pain of right knee See above. PRAP?Consolidated Screener ? ? Behavioral Health Screening AUDIT-C Score: 0 (06/23/22) Initial Depression Screen Score: 0 Score (06/23/22) GAD2 Score: 0 Score (06/23/22) ? NEGATIVE SCREENER ? ? Pain Detail DVPRS Pain Scale: 4 - Distracts me, can do usual activities Past Week DVPRS score: 4 - Distracts me, can do usual activities ? ? ? Elevated screener, member?denies any duty impact or distracting symptoms?and is aware to self report duty distracting symptoms. ? ? For PRAP disposition please refer to PRAP STAMP.? Extracted from:Title: PRK POM12 Author: LUZ ELENA SANCHEZ, FRANCISCO Date: 09/20/21 RTC - for annual eye exams Extracted from:Title: Office Clinic Note Author: YULIYA OLIVIA MD Date: 09/11/21 1.?Melanocytic nevus of trunk ?We will perform shave biopsy for symptomatic debulking and also send it for path review, my suspicion is low for malignancy, but as his webbing belt/uniform rub on the lesion we will remove it for symptomatic benefit.? He is not taking any supplements known to increase bleeding. -pt to call [phone] to schedule a time convenient for him Extracted from:Title: Office Clinic Note Author: JEWEL GONZALEZINE Kingston Date: 08/08/21 Audiogram normal EXAM, FORMAL OCCUPATIONAL HEALTH PROGRAM INCLUDING HEARING CONSERVATION PROGRAM, PERIODIC FOR CONTINUED SURVEILLANCE FOR OCCUPATIONAL WORKPLACE EXPOSURE No qualifying data available. Extracted from:Title: Ambulatory Patient Education Author: BOALANNA Date: 08/08/21 Patient Education Materials Follows: Preventing Hearing Loss, Adult Hearing loss is a partial or total loss of the ability to hear. Hearing loss may start suddenly or gradually, at any age. It may be temporary or permanent, and it may affect one or both ears. There are two types of hearing loss. You can have just one type or both types. You may have a problem with: Damage to your hearing nerves (sensorineural hearing loss). This type of hearing loss is more likely to be permanent. A hearing aid is often the best treatment. Sound getting to your inner ear (conductive hearing loss). This type of hearing loss can usually be treated medically or surgically. Hearing loss may be referred to as deafness. Symptoms that may develop along with hearing loss include ringing in your ear (tinnitus), fullness in your ear, and dizziness (vertigo). Hearing loss that is not associated with aging can often be prevented by taking certain measures to protect your ears. How can hearing loss affect me? Hearing loss can affect you at school, at work, and at home. It can lower your overall quality of life. You may: Have trouble having conversations, especially in busy places with a lot of background noise. Need to make changes at work or at school. Feel depressed, isolated, or anxious. Sometimes hearing loss can make it more difficult to make friends, play sports, and have an active social life. Struggle to hear the TV, radio, or sound at the movies. Have trouble hearing the phone or doorbell. Have trouble hearing alarms and other warning sounds. What changes can I make to protect myself from hearing loss? Have hearing tests (screenings) as often as directed by your health care provider. Hearing screenings can help detect hearing loss early and may help prevent hearing loss from getting worse. This may include having screenings done by: An ear, nose, and throat specialist (divisional merchandising manager or ENT specialist). A specialist in hearing problems (filament tester). Noise damage is the most preventable cause of hearing loss. Noise damage is caused by the loudness of the noise and how long you are exposed to it. Noises that can cause temporary or permanent nerve damage include noises from: Lawn mowers or chainsaws. Guns (firearms). Sirens. Jet engines. To avoid hearing loss from noise exposure: Wear ear protection whenever you are exposed to loud noises or working in a noisy environment, such as: ? Using a non profit director or leaf blower. ? Shooting firearms. ? Woodworking with machines. ? Being near jet engines or sirens. If you are exposed to loud noise at your job, make sure that you are provided with the proper noise protection. Do not sit close to speakers at concerts. If you listen to music, keep the volume at a comfortable level. If you wear headphones, make sure that the noise is only loud enough for you to hear. If someone else can hear it, it is too loud. What can I do to cope with hearing loss? Work with your health care providers to determine what types of treatment are best for you. If you need a hearing aid, have it fitted by a specialist. Do not buy hearing aids without having a hearing aid evaluation first. Use assistive hearing devices and warning devices or alarms that vibrate or use lights. Face people who are talking to you and pay attention to their expressions as they speak. Ask people if they can speak more clearly or more slowly. Tell friends and family about your hearing loss. Avoid areas that have a lot of background noise. If you are feeling isolated, anxious, or depressed, tell someone. Where to find support For more support: Talk with your health care provider. Ask about hearing screenings and online or in-person support groups. Find resources through the Hearing Loss Association of [place]: www.hearingloss.org Get tips for living with hearing loss from the [place] [employer] for the Deaf and Hard of Hearing: www.agbell.org Where to find more information Find more information about how to prevent hearing loss from: Centers for Disease Control and Prevention: www.cdc.gov National Fitzpatrick on Deafness and Other Communication Disorders: www.nidcd.nih.gov Contact a health care provider if you have: Any change in your hearing. Sudden hearing loss. Other symptoms, such as: ? Ear pain. ? Ear pressure. ? Tinnitus. ? Vertigo. Summary Have your hearing screened to detect early hearing loss and to prevent further loss. Hearing loss may be caused by damage to your hearing nerves, problems with sound getting to your inner ear, or both. Avoiding loud noises is the best way to prevent hearing loss. If your hearing changes suddenly, tell your health care provider right away. This information is not intended to replace advice given to you by your health care provider. Make sure you discuss any questions you have with your health care provider. Document Released: 07/21/2018 Document Revised: 07/21/2018 Document Reviewed: 07/21/2018 [employer] Interactive Patient Education ? 2019 [employer] [place] Extracted from:Title: Office Clinic Note Author: JABARI BRUNSON Date: 06/24/21 1.?Illness ?Patient presented to the respiratory clinic for COVID testing (either through assigned primary care clinic, [facility], [facility], 05/01 nurse access line, or self-referral). Pt met criteria for drive up testing (no emergent/severe/worrisome symptoms based on triage protocol), so no [id number] assessment was completed. COVID-19 PCR collected per recommendations/provider discretion. [facility] SARS-CoV-2 Lab Processing form completed and submitted with specimen. The patient was screened by [facility] upstream biomanufacturing technician prior to discharge for tracking and recommendations on isolation/quarantine. Non-urgent needs, if any, were deferred to the PCM team. Patient was given discharge instructions, including information on isolation, self-care, and urgent/routine return precautions. Patient will be contacted with results through the Respiratory Clinic. [facility]. ? Site of testing ? [ x] In-house Cepheid testing ? ? ? Extracted from:Title: PRK POM12 Author: LUZ ELENA SANCHEZ, OD Date: 05/03/21 RTC- for 12mo F/U Extracted from:Title: Eye Care Office Visit Note Author: OLVIN URBAN, OD Date: 05/01/21 1.?Internal hordeolum of left eye Ed pt. on findings. Pt. has internal hordeolum LL OS, recommended hot compresses at least 4 x daily for 15min. Ed pt. on possibility of chalazion?formation and need for injection or incision.? ? Rx bacitracin marichuy BID OS x 2 weeks, ed on importance of good eyelid hygiene to avoid stye formation. Recommended baby shampoo lid scrubs BID. RTC PRN if stye persists or any increase in pain or change in vision. ? Ordered: bacitracin ophthalmic, See Instructions, Apply 1/4 strip to lower eyelid in left eye twice daily, # 3.5 g, 0 total refill(s), Acute, Apply 1/4 strip to lower eyelid in left eye twice daily, Pharmacy: [id number] [External Rx] Ophthalmological [place] X[place] [id number] ? Extracted from:Title: PRK POM3 Author: LUZ ELENA SANCHEZ, OD Date: 02/08/21 RTC- for 6mo F/U Extracted from:Title: PRK POM1 Author: LUZ ELENA SANCHEZ, OD Date: 12/06/20 RTC- for 3mo F/U Extracted from:Title: PRK POD6 Author: LUZ ELENA SANCHEZ, OD Date: 11/06/20 RTC - for 1mo F/U Extracted from:Title: [facility] Medical Surveillance Exam Author: SHAQ ALANIS MD Date: 05/28/20 EXAM, FORMAL OCCUPATIONAL HEALTH PROGRAM INCLUDING HEARING CONSERVATION PROGRAM, PERIODIC FOR CONTINUED SURVEILLANCE FOR OCCUPATIONAL WORKPLACE EXPOSURE Ordered: Pure Tone Audiometry Air Only [id number] ? Member has negative replies on all OME work-specific questions and denies acute/chronic medical issues. ?Denies injury/illness or exposure at workplace. ?No significant conditions in medical history. ?Exam and testing normal. ? No concerns for occupationally-related injury/illness at this time. ?Patient reports regular use of appropriate PPE. ?Counseled on proper use of respirator, safety glasses, ear muffs/plugs, apron/gloves, and proper body movements/mechanics. ? Cleared to perform work-related duties - plan for regular, annual OME evaluation.? Diagnostic Tests PendingAP Surgical Pathology 09/19/21 08/11/2024 [id number] [facility] Assessment and Plan Extracted from:Title : Annual [facility] MHA/PHA Author: DEMARCO REY NP Date: 05/27/24 1.?EXAM/ASSESSMENT, OCCUPATIONAL, PRODUCTION HAND PERIODIC HEALTH ASSESSMENT (PHA) This encounter contains a review of the SM's chronic and active medical conditions since the date of the last PHA on file. SM present for virtual encounter. All age/gender specific CPS IAW USPSTF are up to date. ? IMR- Green.? Profile- none active.? ? +WWQ.? ? This MHA/PHA is for screening purposes only, and is Not to replace a face to face appointment with PCM or other specialty care?if needed. ? SM was informed that?if there are any?health concerns,?it is the SM's responsibility to schedule an appointment with PCM or specialty?care for evaluation and management. ? 2.?Nightmares ?F/U with PCM for evaluation.? SM instructed to report to ER or call suicide Hot line immediatly for any thoughts or plans of harming self or others.? ? 3.?Interrupted sleep ??F/U with PCM for evaluation.? Demarco Rey CTR?IDENTITY MANAGEMENT DEVELOPER-C [facility] Provider Flight Medicine? [address] [place], [place]??[address] [facility], [place] [phone] ? Extracted from:Title: Occupational Health Exam Author: CHLOE BLANCO DO Date: 10/14/23 1.?EXAM, FORMAL OCCUPATIONAL HEALTH PROGRAM INCLUDING HEARING CONSERVATION PROGRAM, PERIODIC FOR CONTINUED SURVEILLANCE FOR OCCUPATIONAL WORKPLACE EXPOSURE Physical exam?without?abnormalities. ? Audiogram reviewed ? ?H1?hearing,?no?asymmetric?hea ring loss,?no significant threshold shift ? ? No occupational injury or illness ? Fitness:?No restrictions. ? Duty:?No restrictions. ? Mobility: World-wide Qualified ? ASIMS:?Yellow for Dental exam. Informed member. ? Counseled on proper use of PPE.? ? F/U with PCM as needed. ? Patient medically cleared for occupational duties?without?restrictions. ? Extracted from:Title: PCS Concern Author: SVETLANA RICKS Date: 08/26/23 1.?Administrative statuses Discussed we do not clear patients for medical clearance. ?That would be through?[facility].?Will defer to for further guidance, but discussed should not be an issue as pt is in good health, has no new medical concerns, and is PCSing to [facility] location. At least med clearance, only thing that was flagged was concerning nightmares, reviewed and cleared by [facility] d/t PCS stress. Pt to f/u with PCM prn. ? Provided patient?a [employer] [facility]?clinic plan of care sheet with detailed instructions to include?info regarding any necessary?f/u recommendations, new Rx, imaging, labs, referrals, BP check instructions, preventative health screening, IMR, Profile, and any additional PCM notes. ? Any items not discussed today based on provider triage and shared decision making between provider/patient,?were recommended to have additional appointments scheduled to discuss. ? ? Patient verbalized understanding and agrees with plan of care. ? ASIMS reviewed. ? Disposition:? ? 1. 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 3. 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 Y. ? 4. Can member complete FA??Y. 5. Quarters?? N ? ? ? Svetlana Ricks [employer], PA-C Staff Physician Chemical Processing Laborer, [facility] ([facility]) 5 [employer], [address] [employer] [address] [place] [address], [id number] ? ? Total Time:?20?minutes ? Total time includes medical decision making and preparation before the visit, the time spent examining the patient, documentation, and any post-visit care coordination?conducted on the day of the visit.? Some parts of this note were generated using voice-recognition software. Despite real-time proof-reading, supervisor record press errors might still be present. Please call if there are questions.? Extracted from:Title: AUDIOGRAM Author: NAOMI COON Date: 07/09/23 H1 hearing, no STS Extracted from:Title: AUDIOGRAM Note Author: NAOMI COON Date: 07/09/23 Audiogram normal 1. Are you on PRP/ AUOF or Fly Status? [ ] Yes ?[ X]??No. ? 2. 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 YES [ ]???NO??[X ]?ALERT [ ]?CONTROL??[ ] ? 3. Visit for: Hearing Conservation Program: YES [X ]??NO [ ]~Shop:243A ? a. TEST TYPE ??Reference [ ] ??Annual [X ] ??Termination [ ] ??Follow-up #1 [ ] ??Follow-up #2 [ ] ??Non-Hearing Conservation [ ] ??SHPE [ ] ? PHYSIC FINDINGS ? 4.???Member's Audiogram Results Indicate: [ X] No STS?[ ] Positive STS?[ ] Negative STS???[ X] Early warning for decrease in hearing?[ ] N/A ( DD FORM 2215/ Non-Hearing??Conservation ) [ ] Masking Required ? 5. IAW [place]IQUE [address], Attachment 3, member has a hearing profile of: [ ] H-1?[ X] H-2?[ ] H-3?[ ]??H-4 [ ] N/A ? 6.???Based on member's Audiogram results, the following actions have been taken: ??[ ] Member scheduled for a 14-hour noise-free follow up within 30 calendar days (see STS Follow-Up SF 600). ??[ ] Member completed AF Form 175 and referred to [facility] for ear evaluation. ??[ ] Member was given STS letter. ??[ ] Member's information was entered into STS log. ??[ X] Member will be due for next audiogram in 12 months. ??[ ] N/A ? 7.???The following was accomplished by Public Health: ??[ ] Member was fitted with following hearing protection devices: ??[ X] Member was educated in the proper care and use of hearing protection devices and encouraged to wear hearing protection. ??[ X] Member was educated on his/her audiogram results. ??[X ] LEI Conducted ??[ ] Fitness and Risk required? Extracted from:Title: Sleep Disturbance F/u Author: SVETLANA RICKS Date: 06/06/23 1.?Sleep disorder Asymptomatic for more than a year. -Negative sleep study?previously.? Reports that?his hallucinations were hypnopompic. -Discussed with SGP team,?would like recommendation from mental health regarding current status prior to clearance. -Discussed that?without recommendation from MH, patient unlikely to be?medically cleared for TDY exercise to [place] from end of June to August. (on RASHID and RISSA orders) -Follow-up for?mental health appointment. ? ? ? Provided patient?a [employer] [facility]?clinic plan of care sheet with detailed instructions to include?info regarding any necessary?f/u recommendations, new Rx, imaging, labs, referrals, BP check instructions, preventative health screening, IMR, Profile, and any additional PCM notes. ? Any items not discussed today based on provider triage and shared decision making between provider/patient,?were recommended to have additional appointments scheduled to discuss. ? ? Patient verbalized understanding and agrees with plan of care. ? ASIMS reviewed. ? Disposition:? ? 1. Is member deployable?N. 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 3. 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 Y. ? 4. Can member complete FA??Y. 5. Quarters?? N ? ? ? Svetlana Ricks [employer], PA-C Staff Physician Chemical Processing Laborer, [facility] ([facility]) 5 [employer]RS, [address] [facility] [employer] [address] [place] [address], [facility] ? ? Total Time:?15?minutes ? Total time includes medical decision making and preparation before the visit, the time spent examining the patient, documentation, and any post-visit care coordination?conducted on the day of the visit.? Some parts of this note were generated using voice-recognition software. Despite real-time proof-reading, supervisor record press errors might still be present. Please call if there are questions.? Extracted from:Title: Profile Update Author: SVETLANA RICKS Date: 05/20/23 1.?Night terrors Resolved. -Seen by mental health at the time who attributed it to sleep deprivation (member was PCSing),?MH at the time did recommended?sleep study which was negative. -Discussed that I will?bring member up at the?[facility]?discussion. ?It is my recommendation due to symptom resolution and mental health assessment?the patient's case be removed. -Will f/u with pt regarding board decision ? ? 2.?Sleep walking Resolved. As above. ? Provided patient?a [employer] [facility]?clinic plan of care sheet with detailed instructions to include?info regarding any necessary?f/u recommendations, new Rx, imaging, labs, referrals, BP check instructions, preventative health screening, IMR, Profile, and any additional PCM notes. ? Any items not discussed today based on provider triage and shared decision making between provider/patient,?were recommended to have additional appointments scheduled to discuss. ? ? Patient verbalized understanding and agrees with plan of care. ? ASIMS reviewed. ? Disposition:? ? 1. Is member deployable?N. 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 3. 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 AMR[facility] case review is pending ? 4. Can member complete FA??Y. 5. Quarters?? N ? ? ? Svetlana Ricks [employer], PA-C Staff Physician Chemical Processing Laborer, [facility] ([facility]) 5 OMRS, [address] [facility] [employer] [address] [place] [address], [facility] ? ? Total Time:?20?minutes ? Total time includes medical decision making and preparation before the visit, the time spent examining the patient, documentation, and any post-visit care coordination?conducted on the day of the visit.? Some parts of this note were generated using voice-recognition software. Despite real-time proof-reading, supervisor record press errors might still be present. Please call if there are questions.? Extracted from:Title: MHA / PHA Author: LING LEONARDO Date: 04/29/23 1.?EXAM/ASSESSMENT, OCCUPATIONAL, PRODUCTION HAND PERIODIC HEALTH ASSESSMENT (PHA) ? ? MHA completed. See note above. Member reports that they are currently in?a? ?sound mental state and denies any mental health or ETOH concerns.? Member denies any suicidal/homicidal ideations, plan, intent or other self-directed violence. No request for medical or mental health appointment at this time.?No?referral indicated at this time ? ? Advised to f/u with PCM as needed. Member verbalized understanding, denies questions and agrees with plan of care.? ? Fitness for duty determination: 1) Meets deployment standards:?Yes? 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 Yes?? 3) Meets retention Standards:? Yes?? 4) Able to complete the Fitness assessment:? Yes ? ? Extracted from:Title: Office Clinic Note Author: BO NEW PA Date: 03/03/23 1.?Pain of right knee Secondary to patella tendinitis, subacute on chronic, benefited in the past with his formal physical therapy ? Moderately tender to palpation along the right patella tendon otherwise unremarkable examination ? Feldene as needed for pain and inflammation Formal physical therapy referral has been placed ? Ordered: piroxicam(Feldene 20 mg oral capsule), 1 cap(s), Oral, Daily, PRN pain (moderate), # 30 cap(s), 0 total refill(s), Maintenance, 1 cap(s) Oral Daily,PRN:pain (moderate), Pharmacy: [facility] [Not filled] Referral Request 2.0 ? 2.?pain of left knee Not demonstrated today, subacute on chronic?per?HPI ? Unremarkable examination today ? Feldene as needed for pain and inflammation Formal physical therapy referral has been placed ? Ordered: piroxicam(Feldene 20 mg oral capsule), 1 cap(s), Oral, Daily, PRN pain (moderate), # 30 cap(s), 0 total refill(s), Maintenance, 1 cap(s) Oral Daily,PRN:pain (moderate), Pharmacy: [facility] [Not filled] Referral Request 2.0 ? Patient declined profile today. ? ? Discussed the plan of care with the patient.?Patient understands and agrees with the plan of care. ? RTC as mentioned above or sooner?for any changes/concerns. ? Contact the clinic for any laboratory/radiology/diagnosti c tests results. ? If any referral have been place today, please contact Referral Management Center today and return or call clinic if any issues with any referral that [facility] cannot resolve. ? A copy of ambulatory patient summary associated with this encounter will be available to the patient through the patient portal. A portion of this note was completed through dictation and use of computer voice recognition software. ? ASIMS reviewed. ? Disposition:? ? 1. 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 3. 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 Y. ? 4. Can member complete FA??Y. 5. Quarters?? N ? ? Maj HOPKINS [employer], ALEXEY? [facility] Medicine [facility] ([facility]) Staff PA 5 [employer], 5 [facility] [employer]? [address] [place] [address]? [place] [address] ? 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 Prev med counseling? (age/gender specific) ? Exposure questionaire reviewed and attached to EXAM above ? -Reviewed the OEHEDS and COHER specific to the service members P.E.G -No signs or symptoms of [place]-related illness or injury. ? -Exposure concerns noted. ? -Wears PPE at all required times. ? -No medical concerns at this time. ? -No referral indicated. ? -No labs pending. ? -Audiogram complete, no threshold shift? -Return to clinic as needed. ? -Patient agrees with plan, all questions answered. ? -Medications reconciled. -Cleared for continued duty ? ASIMS reviewed, member is currently?not on a profile ? ? Fitness:?No Restrictions ? ? Duty:?No Restrictions ? ? Mobility:?World-wide Qualified ? ? ASIMS status:?Green ? Extracted from:Title: AUDIOGRAM Author: ANN URBAN Date: 07/30/22 Audiogram normal 1.?Are you on PRP/ AUOF or Fly Status? [ ?]?Yes ?[ X?] ?No. ? 2.?Visit for: Hearing Conservation Program: YES [?X?] ?NO [___]~Shop:?243A ? a.?TEST TYPE ??Reference [ ?] ??Annual [X ?] ??Termination [ ?] ??Follow-up #1 [ ?] ??Follow-up #2 [ ?] ??Non-Hearing Conservation [ ?] ??SHPE [ ?] ? 3.?Do you wear hearing aids? [ ] Yes?[ X?] ?No ? 4.??Do you currently have any ear, nose, or throat problems (i.e. cold, sinus infection, allergies, etc.) that are affecting your hearing? [ ] Yes* ?[ X?] ?No ? ? ? 5.??Are you currently experiencing tinnitus (ringing in your ears)? [ ] Yes?[ X?] ?No ? 6.??How many hours/days has it been since you were in an environment where you had to wear hearing protection and/or raise your voice within three feet of someone to communicate? 8 HOURS ? 7.?What type of hearing protection do you use MOST COMMONLY? [ ] N/A?[ X?] ?Handformed (Foamies) ?[ ?] ?Quad-Flange ? ?[ ?] ?Other: ? 8.?Do you wear double hearing protection (two types of hearing protection at the same time)? [X ] Yes?[ ?] ?No ? 9.?What type of double hearing protection do you wear? [ X] Noise Muffs?[ ] Helmet ?[ ?] ?Other: ? 10.?Do you wear safety glasses and/or goggles while performing your duties (when necessary)? [ X] Always [ ] Seldom?[ ?] ?N/A ? 11.???Are you or retiring from the in the next 12 months? [ ] Yes?[ X?] ?No ? 12.?Have you ever had your baseline Audiogram re-established? [ ] Yes ?[ X?] ?No ? ? ? 13.?Have you recently transferred to another shop? [ ] Yes ?[ ?X] ?No ? 14.?Do you work around hazardous noise for at least 8 hours a day? [X ] Yes?[ ?] ?No ? Physical findings? ? 15.???Member's audiogram results indicate: [X ] No STS?[ ] Positive STS?[ ] Negative STS?[ ?] ?N/A (DD Form 0490 / Non-Hearing Conservation) ? 16.???IAW MONIQUE 48-123, Attachment 3, member has a hearing profile of: [X ] H-1?[ ] H-2?[ ] H-3?[ ?] ?H-4 ? 17.???Based on member's audiogram results, the following actions have been taken: ??[ ?] Member scheduled for a 14-hour noise-free follow up within 30 calendar days (see STS Follow-Up SF 600). ??[ ?] Member completed AF Form 7202 and referred to [facility] for ear evaluation. ??[ ] Member was given [facility] letter. ??[ ?] Member's information was entered into [facility] log. ??[ X?] Member will be due for next audiogram in 12 months. ??[ ?]?N/A ? 18.???The following was accomplished by Public Health: ??[ ?] Member was fitted with following hearing protection devices: ??[ ?X ] Member was educated in the proper care and use of hearing protection devices and encouraged to wear hearing protection. ??[ ?X] Member was educated on his/her audiogram results. ??[ ?X ] LEI Conducted ??[ ?] Fitness and Risk required? EXAM, FORMAL OCCUPATIONAL HEALTH PROGRAM INCLUDING HEARING CONSERVATION PROGRAM, PERIODIC FOR CONTINUED SURVEILLANCE FOR OCCUPATIONAL WORKPLACE EXPOSURE Extracted from:Title: Eye Care Optometry Follow Up Author: JVJENNJAIME Marley, OD Date: 07/14/22 1.?Right corneal abrasion Resolved, no pain remaining. No folds or irregularities in the cornea noted.?D/c ketorolac, continue oflox QID x 3 more days then d/c. Abrasion was from dog paw, but no evidence of infection at this point. Pt to RTC 1 year for regular eye exam or sooner with any pain or irritation. ? No problems with PRP at this time, pt feels comfortable returning to work. ? For PRAP Disposition please refer to message titled PRAP STAMP. This disposition encompasses all notes associated with this encounter. Extracted from:Title: Eye Care Optometry Acute Author: ALMAZ JAIME Ross, OD Date: 07/11/22 1.?Right corneal abrasion Rx ofloxacin QID, ketorolac QID. Bandage CL (AO night and day -0.50) inserted in office. Pt is an experienced CL wearer (before PRK). Will touch base with patient tomorrow by phone, he will plan on removing the lens himself at home and replacing it with another fresh lens over the weekend. Pt to take OTC ibuprofen/tylenol as well. Pt ed on painful course of healing over next 48 hours. ? The dog is an inside dog, but still some risk for infection. RTC Thursday morning for evaluation or patient will contact me by phone if symptoms are worsening. ? Duty distracting pain, will relay to [place]. ? ? ? Orders: ketorolac ophthalmic(ketorolac 0.4% ophthalmic solution), 1 drop(s), Eye-Right, QID, X 4 days, # 5 mL, 0 total refill(s), Acute, any NSAID ophthalmic drop substitution is fine, 1 drop(s) Eye-Right QID,x4 days, Pharmacy: [facility] [Not filled] ofloxacin ophthalmic(ofloxacin 0.3% ophthalmic solution), 1 drop(s), Eye-Right, QID, X 5 days, # 5 mL, 0 total refill(s), Acute, 1 drop(s) Eye-Right QID,x5 days, Pharmacy: [facility] [Not filled] For PRAP Disposition please refer to message titled PRAP STAMP. This disposition encompasses all notes associated with this encounter. Extracted from:Title: admin close Author: SHYAM REDMAN PA Date: 07/11/22 1.?Administrative statuses was referred to optometry during their walk in. will admin close. Extracted from:Title: Knee pain follow up Author: JESSICA ELAINE PA Date: 06/23/22 1.?pain of left knee Chronic bilateral knee pain. PE done a month ago with no change in sx. XRs at that time were without significant findings. No improvement with conservative home tx. Will refer to PT for further evaluation and tx. Full eval deferred today as no change or worsening of sx since eval last month. No noted inciting event.? Pt denies duty limitations or distracting sx. Discussed ice therapy and use of NSAIDs and Tylenol PRN. Pt denied need for additional medication at this time.? Will place FR profile to allow for PT and gradual return to activity. Pt is aware to self report any duty distracting sx.? Pt to follow up if sx not improving with PT in 2 months or sooner if sx worsen or change. PVUA. ? Disposition: 1. 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 Y 4. Can member complete FA? Y with restrictions ? Visit summary with updated medication list? provided to the pt. ? 2.?Pain of right knee See above. PRAP?Consolidated Screener ? ? Behavioral Health Screening AUDIT-C Score: 0 (06/23/22) Initial Depression Screen Score: 0 Score (06/23/22) GAD2 Score: 0 Score (06/23/22) ? NEGATIVE SCREENER ? ? Pain Detail DVPRS Pain Scale: 4 - Distracts me, can do usual activities Past Week DVPRS score: 4 - Distracts me, can do usual activities ? ? ? Elevated screener, member?denies any duty impact or distracting symptoms?and is aware to self report duty distracting symptoms. ? ? For PRAP disposition please refer to PRAP STAMP.? Extracted from:Title: PRK POM12 Author: LUZ ELENA SANCHEZ, FRANCISCO Date: 09/20/21 RTC - for annual eye exams Extracted from:Title: Office Clinic Note Author: YULIYA OLIVIA MD Date: 09/11/21 1.?Melanocytic nevus of trunk ?We will perform shave biopsy for symptomatic debulking and also send it for path review, my suspicion is low for malignancy, but as his webbing belt/uniform rub on the lesion we will remove it for symptomatic benefit.? He is not taking any supplements known to increase bleeding. -pt to call [phone] to schedule a time convenient for him Extracted from:Title: Office Clinic Note Author: ALANNA GONZALEZ Date: 08/08/21 Audiogram normal EXAM, FORMAL OCCUPATIONAL HEALTH PROGRAM INCLUDING HEARING CONSERVATION PROGRAM, PERIODIC FOR CONTINUED SURVEILLANCE FOR OCCUPATIONAL WORKPLACE EXPOSURE No qualifying data available. Extracted from:Title: Ambulatory Patient Education Author: ALANNA GONZALEZ Date: 08/08/21 Patient Education Materials Follows: Preventing Hearing Loss, Adult Hearing loss is a partial or total loss of the ability to hear. Hearing loss may start suddenly or gradually, at any age. It may be temporary or permanent, and it may affect one or both ears. There are two types of hearing loss. You can have just one type or both types. You may have a problem with: Damage to your hearing nerves (sensorineural hearing loss). This type of hearing loss is more likely to be permanent. A hearing aid is often the best treatment. Sound getting to your inner ear (conductive hearing loss). This type of hearing loss can usually be treated medically or surgically. Hearing loss may be referred to as deafness. Symptoms that may develop along with hearing loss include ringing in your ear (tinnitus), fullness in your ear, and dizziness (vertigo). Hearing loss that is not associated with aging can often be prevented by taking certain measures to protect your ears. How can hearing loss affect me? Hearing loss can affect you at school, at work, and at home. It can lower your overall quality of life. You may: Have trouble having conversations, especially in busy places with a lot of background noise. Need to make changes at work or at school. Feel depressed, isolated, or anxious. Sometimes hearing loss can make it more difficult to make friends, play sports, and have an active social life. Struggle to hear the TV, radio, or sound at the movies. Have trouble hearing the phone or doorbell. Have trouble hearing alarms and other warning sounds. What changes can I make to protect myself from hearing loss? Have hearing tests (screenings) as often as directed by your health care provider. Hearing screenings can help detect hearing loss early and may help prevent hearing loss from getting worse. This may include having screenings done by: An ear, nose, and throat specialist (divisional merchandising manager or ENT specialist). A specialist in hearing problems (filament tester). Noise damage is the most preventable cause of hearing loss. Noise damage is caused by the loudness of the noise and how long you are exposed to it. Noises that can cause temporary or permanent nerve damage include noises from: Lawn mowers or chainsaws. Guns (firearms). Sirens. Jet engines. To avoid hearing loss from noise exposure: Wear ear protection whenever you are exposed to loud noises or working in a noisy environment, such as: ? Using a non profit director or leaf blower. ? Shooting firearms. ? Woodworking with machines. ? Being near jet engines or sirens. If you are exposed to loud noise at your job, make sure that you are provided with the proper noise protection. Do not sit close to speakers at concerts. If you listen to music, keep the volume at a comfortable level. If you wear headphones, make sure that the noise is only loud enough for you to hear. If someone else can hear it, it is too loud. What can I do to cope with hearing loss? Work with your health care providers to determine what types of treatment are best for you. If you need a hearing aid, have it fitted by a specialist. Do not buy hearing aids without having a hearing aid evaluation first. Use assistive hearing devices and warning devices or alarms that vibrate or use lights. Face people who are talking to you and pay attention to their expressions as they speak. Ask people if they can speak more clearly or more slowly. Tell friends and family about your hearing loss. Avoid areas that have a lot of background noise. If you are feeling isolated, anxious, or depressed, tell someone. Where to find support For more support: Talk with your health care provider. Ask about hearing screenings and online or in-person support groups. Find resources through the Hearing Loss Association of [place]: www.hearingloss.org Get tips for living with hearing loss from the [place] Association for the Deaf and Hard of Hearing: www.agbell.org Where to find more information Find more information about how to prevent hearing loss from: Centers for Disease Control and Prevention: www.cdc.gov National Fitzpatrick on Deafness and Other Communication Disorders: www.nidcd.nih.gov Contact a health care provider if you have: Any change in your hearing. Sudden hearing loss. Other symptoms, such as: ? Ear pain. ? Ear pressure. ? Tinnitus. ? Vertigo. Summary Have your hearing screened to detect early hearing loss and to prevent further loss. Hearing loss may be caused by damage to your hearing nerves, problems with sound getting to your inner ear, or both. Avoiding loud noises is the best way to prevent hearing loss. If your hearing changes suddenly, tell your health care provider right away. This information is not intended to replace advice given to you by your health care provider. Make sure you discuss any questions you have with your health care provider. Document Released: 07/21/2018 Document Revised: 07/21/2018 Document Reviewed: 07/21/2018 [employer] Interactive Patient Education ? 2019 [employer]. Extracted from:Title: Office Clinic Note Author: JABARI BRUNSON Date: 06/24/21 1.?Illness ?Patient presented to the respiratory clinic for COVID testing (either through assigned primary care clinic, [facility], [facility] [place] [facility], 05/01 nurse access line, or self-referral). Pt met criteria for drive up testing (no emergent/severe/worrisome symptoms based on triage protocol), so no [id number] assessment was completed. COVID-19 PCR collected per recommendations/provider discretion. [facility] SARS-CoV-2 Lab Processing form completed and submitted with specimen. The patient was screened by [facility] Health upstream biomanufacturing technician prior to discharge for tracking and recommendations on isolation/quarantine. Non-urgent needs, if any, were deferred to the PCM team. Patient was given discharge instructions, including information on isolation, self-care, and urgent/routine return precautions. Patient will be contacted with results through the Respiratory Clinic. PVUA. ? Site of testing ? [ x] In-house Cepheid testing ? ? ? Extracted from:Title: PRK POM12 Author: LUZ ELENA SANCHEZ, OD Date: 05/03/21 RTC- for 12mo F/U Extracted from:Title: Eye Care Office Visit Note Author: OLVIN URBAN, OD Date: 05/01/21 1.?Internal hordeolum of left eye Ed pt. on findings. Pt. has internal hordeolum LL OS, recommended hot compresses at least 4 x daily for 15min. Ed pt. on possibility of chalazion?formation and need for injection or incision.? ? Rx bacitracin marichuy BID OS x 2 weeks, ed on importance of good eyelid hygiene to avoid stye formation. Recommended baby shampoo lid scrubs BID. RTC PRN if stye persists or any increase in pain or change in vision. ? Ordered: bacitracin ophthalmic, See Instructions, Apply 1/4 strip to lower eyelid in left eye twice daily, # 3.5 g, 0 total refill(s), Acute, Apply 1/4 strip to lower eyelid in left eye twice daily, Pharmacy: [facility] [External Rx] Ophthalmological Medical X[place] [address] ? Extracted from:Title: PRK POM3 Author: LUZ ELENA SANCHEZ, OD Date: 02/08/21 RTC- for 6mo F/U Extracted from:Title: PRK POM1 Author: LUZ ELENA SANCHEZ, OD Date: 12/06/20 RTC- for 3mo F/U Extracted from:Title: PRK POD6 Author: LUZ ELENA SANCHEZ, OD Date: 11/06/20 RTC - for 1mo F/U Extracted from:Title: [facility] Medical Surveillance Exam Author: SHAQ ALANIS MD Date: 05/28/20 EXAM, FORMAL OCCUPATIONAL HEALTH PROGRAM INCLUDING HEARING CONSERVATION PROGRAM, PERIODIC FOR CONTINUED SURVEILLANCE FOR OCCUPATIONAL WORKPLACE EXPOSURE Ordered: Pure Tone Audiometry Air Only [id number] ? Member has negative replies on all OME work-specific questions and denies acute/chronic medical issues. ?Denies injury/illness or exposure at workplace. ?No significant conditions in medical history. ?Exam and testing normal. ? No concerns for occupationally-related injury/illness at this time. ?Patient reports regular use of appropriate PPE. ?Counseled on proper use of respirator, safety glasses, ear muffs/plugs, apron/gloves, and proper body movements/mechanics. ? Cleared to perform work-related duties - plan for regular, annual OME evaluation.? Diagnostic Tests PendingAP Surgical Pathology 09/19/21 08/11/2024 [id number] [employer] Assessment and Plan Extracted from:Title : Annual [facility] MHA/PHA Author: DEMARCO REY NP Date: 05/27/24 1.?EXAM/ASSESSMENT, OCCUPATIONAL, PRODUCTION HAND PERIODIC HEALTH ASSESSMENT (PHA) This encounter contains a review of the SM's chronic and active medical conditions since the date of the last PHA on file. SM present for virtual encounter. All age/gender specific CPS IAW USPSTF are up to date. ? IMR- Green.? Profile- none active.? ? +WWQ.? ? This MHA/PHA is for screening purposes only, and is Not to replace a face to face appointment with PCM or other specialty care?if needed. ? SM was informed that?if there are any?health concerns,?it is the SM's responsibility to schedule an appointment with PCM or specialty?care for evaluation and management. ? 2.?Nightmares ?F/U with PCM for evaluation.? SM instructed to report to ER or call suicide Hot line immediatly for any thoughts or plans of harming self or others.? ? 3.?Interrupted sleep ??F/U with PCM for evaluation.? Demarco Rey CTR?IDENTITY MANAGEMENT DEVELOPER-C [facility] Provider Flight Medicine? [address] [place], [place]??[address] [facility], [place] [phone] ? Extracted from:Title: Occupational Health Exam Author: CHLOE BLANCO DO Date: 10/14/23 1.?EXAM, FORMAL OCCUPATIONAL HEALTH PROGRAM INCLUDING HEARING CONSERVATION PROGRAM, PERIODIC FOR CONTINUED SURVEILLANCE FOR OCCUPATIONAL WORKPLACE EXPOSURE Physical exam?without?abnormalities. ? Audiogram reviewed ? ?H1?hearing,?no?asymmetric?hea ring loss,?no significant threshold shift ? ? No occupational injury or illness ? Fitness:?No restrictions. ? Duty:?No restrictions. ? Mobility: World-wide Qualified ? ASIMS:?Yellow for Dental exam. Informed member. ? Counseled on proper use of PPE.? ? F/U with PCM as needed. ? Patient medically cleared for occupational duties?without?restrictions. ? Extracted from:Title: PCS Concern Author: SVETLANA RICKS Date: 08/26/23 1.?Administrative statuses Discussed we do not clear patients for medical clearance. ?That would be through?[facility].?Will defer to for further guidance, but discussed should not be an issue as pt is in good health, has no new medical concerns, and is PCSing to [facility] location. At least med clearance, only thing that was flagged was concerning nightmares, reviewed and cleared by [facility] d/t PCS stress. Pt to f/u with PCM prn. ? Provided patient?a [employer] [facility]?clinic plan of care sheet with detailed instructions to include?info regarding any necessary?f/u recommendations, new Rx, imaging, labs, referrals, BP check instructions, preventative health screening, IMR, Profile, and any additional PCM notes. ? Any items not discussed today based on provider triage and shared decision making between provider/patient,?were recommended to have additional appointments scheduled to discuss. ? ? Patient verbalized understanding and agrees with plan of care. ? ASIMS reviewed. ? Disposition:? ? 1. 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 3. 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 Y. ? 4. Can member complete FA??Y. 5. Quarters?? N ? ? ? Svetlana Ricks [employer], PA-C Staff Physician Chemical Processing Laborer, [facility] ([facility]) [address] [employer], [facility] [employer] [address], [place], [address] ? ? Total Time:?20?minutes ? Total time includes medical decision making and preparation before the visit, the time spent examining the patient, documentation, and any post-visit care coordination?conducted on the day of the visit.? Some parts of this note were generated using voice-recognition software. Despite real-time proof-reading, supervisor record press errors might still be present. Please call if there are questions.? Extracted from:Title: AUDIOGRAM Author: NAOMI COON Date: 07/09/23 H1 hearing, no STS Extracted from:Title: AUDIOGRAM Note Author: NAOMI COON Date: 07/09/23 Audiogram normal 1. Are you on PRP/ AUOF or Fly Status? [ ] Yes ?[ X]??No. ? 2. 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 YES [ ]???NO??[X ]?ALERT [ ]?CONTROL??[ ] ? 3. Visit for: Hearing Conservation Program: YES [X ]??NO [ ]~Shop:243A ? a. TEST TYPE ??Reference [ ] ??Annual [X ] ??Termination [ ] ??Follow-up #1 [ ] ??Follow-up #2 [ ] ??Non-Hearing Conservation [ ] ??SHPE [ ] ? PHYSIC FINDINGS ? 4.???Member's Audiogram Results Indicate: [ X] No STS?[ ] Positive STS?[ ] Negative STS???[ X] Early warning for decrease in hearing?[ ] N/A ( DD FORM 5849/ Non-Hearing??Conservation ) [ ] Masking Required ? 5. IAW MONIQUE 39-053, Attachment 3, member has a hearing profile of: [ ] H-1?[ X] H-2?[ ] H-3?[ ]??H-4 [ ] N/A ? 6.???Based on member's Audiogram results, the following actions have been taken: ??[ ] Member scheduled for a 14-hour noise-free follow up within 30 calendar days (see STS Follow-Up SF 600). ??[ ] Member completed AF Form 1757 and referred to [facility] for ear evaluation. ??[ ] Member was given STS letter. ??[ ] Member's information was entered into STS log. ??[ X] Member will be due for next audiogram in 12 months. ??[ ] N/A ? 7.???The following was accomplished by Public Health: ??[ ] Member was fitted with following hearing protection devices: ??[ X] Member was educated in the proper care and use of hearing protection devices and encouraged to wear hearing protection. ??[ X] Member was educated on his/her audiogram results. ??[X ] LEI Conducted ??[ ] Fitness and Risk required? Extracted from:Title: Sleep Disturbance F/u Author: SVETLANA RICKS Date: 06/06/23 1.?Sleep disorder Asymptomatic for more than a year. -Negative sleep study?previously.? Reports that?his hallucinations were hypnopompic. -Discussed with SGP team,?would like recommendation from mental health regarding current status prior to clearance. -Discussed that?without recommendation from , patient unlikely to be?medically cleared for TDY exercise to [place] from end of June to August. (on RASHID and RISSA orders) -Follow-up for?mental health appointment. ? ? ? Provided patient?a [facility]?clinic plan of care sheet with detailed instructions to include?info regarding any necessary?f/u recommendations, new Rx, imaging, labs, referrals, BP check instructions, preventative health screening, IMR, Profile, and any additional PCM notes. ? Any items not discussed today based on provider triage and shared decision making between provider/patient,?were recommended to have additional appointments scheduled to discuss. ? ? Patient verbalized understanding and agrees with plan of care. ? ASIMS reviewed. ? Disposition:? ? 1. Is member deployable?N. 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 3. 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 Y. ? 4. Can member complete FA??Y. 5. Quarters?? N ? ? ? Svetlana Ricks [employer], PA-C Staff Physician Chemical Processing Laborer, [facility] ([facility]) [address] [facility], [facility] [employer] [address], [place], [address] ? ? Total Time:?15?minutes ? Total time includes medical decision making and preparation before the visit, the time spent examining the patient, documentation, and any post-visit care coordination?conducted on the day of the visit.? Some parts of this note were generated using voice-recognition software. Despite real-time proof-reading, supervisor record press errors might still be present. Please call if there are questions.? Extracted from:Title: Profile Update Author: SVETLANA RICKS Date: 05/20/23 1.?Night terrors Resolved. -Seen by mental health at the time who attributed it to sleep deprivation (member was PCSing),?MH at the time did recommended?sleep study which was negative. -Discussed that I will?bring member up at the?[facility]?discussion. ?It is my recommendation due to symptom resolution and mental health assessment?the patient's case be removed. -Will f/u with pt regarding board decision ? ? 2.?Sleep walking Resolved. As above. ? Provided patient?a [place] [facility]?clinic plan of care sheet with detailed instructions to include?info regarding any necessary?f/u recommendations, new Rx, imaging, labs, referrals, BP check instructions, preventative health screening, IMR, Profile, and any additional PCM notes. ? Any items not discussed today based on provider triage and shared decision making between provider/patient,?were recommended to have additional appointments scheduled to discuss. ? ? Patient verbalized understanding and agrees with plan of care. ? ASIMS reviewed. ? Disposition:? ? 1. Is member deployable?N. 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 3. 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 [facility] case review is pending ? 4. Can member complete FA??Y. 5. Quarters?? N ? ? ? Svetlana Ricks [employer], PA-C Staff Physician Chemical Processing Laborer, [facility] ([facility]) [address] [facility], [address] [facility] [address] [place] [address], [address] ? ? Total Time:?20?minutes ? Total time includes medical decision making and preparation before the visit, the time spent examining the patient, documentation, and any post-visit care coordination?conducted on the day of the visit.? Some parts of this note were generated using voice-recognition software. Despite real-time proof-reading, supervisor record press errors might still be present. Please call if there are questions.? Extracted from:Title: MHA / PHA Author: JORDEN LING M Date: 04/29/23 1.?EXAM/ASSESSMENT, OCCUPATIONAL, PRODUCTION HAND PERIODIC HEALTH ASSESSMENT (PHA) ? ? MHA completed. See note above. Member reports that they are currently in?a? ?sound mental state and denies any mental health or ETOH concerns.? Member denies any suicidal/homicidal ideations, plan, intent or other self-directed violence. No request for medical or mental health appointment at this time.?No?referral indicated at this time ? ? Advised to f/u with PCM as needed. Member verbalized understanding, denies questions and agrees with plan of care.? ? Fitness for duty determination: 1) Meets deployment standards:?Yes? 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 Yes?? 3) Meets retention Standards:? Yes?? 4) Able to complete the Fitness assessment:? Yes ? ? Extracted from:Title: Office Clinic Note Author: BO NEW PA Date: 03/03/23 1.?Pain of right knee Secondary to patella tendinitis, subacute on chronic, benefited in the past with his formal physical therapy ? Moderately tender to palpation along the right patella tendon otherwise unremarkable examination ? Feldene as needed for pain and inflammation Formal physical therapy referral has been placed ? Ordered: piroxicam(Feldene 20 mg oral capsule), 1 cap(s), Oral, Daily, PRN pain (moderate), # 30 cap(s), 0 total refill(s), Maintenance, 1 cap(s) Oral Daily,PRN:pain (moderate), Pharmacy: [facility] [Not filled] Referral Request 2.0 ? 2.?pain of left knee Not demonstrated today, subacute on chronic?per?HPI ? Unremarkable examination today ? Feldene as needed for pain and inflammation Formal physical therapy referral has been placed ? Ordered: piroxicam(Feldene 20 mg oral capsule), 1 cap(s), Oral, Daily, PRN pain (moderate), # 30 cap(s), 0 total refill(s), Maintenance, 1 cap(s) Oral Daily,PRN:pain (moderate), Pharmacy: [facility] [Not filled] Referral Request 2.0 ? Patient declined profile today. ? ? Discussed the plan of care with the patient.?Patient understands and agrees with the plan of care. ? RTC as mentioned above or sooner?for any changes/concerns. ? Contact the clinic for any laboratory/radiology/diagnosti c tests results. ? If any referral have been place today, please contact Referral Management Center today and return or call clinic if any issues with any referral that [facility] cannot resolve. ? A copy of ambulatory patient summary associated with this encounter will be available to the patient through the patient portal. A portion of this note was completed through dictation and use of computer voice recognition software. ? ASIMS reviewed. ? Disposition:? ? 1. 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 3. 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 Y. ? 4. Can member complete FA??Y. 5. Quarters?? N ? ? Maj KELLIE, MARKY, ALEXEY? [facility] ([facility]) Staff PA 5 OMRS, 5 Medical Group? [address] [place] [address]? [place] [id number] ? 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 Prev med counseling? (age/gender specific) ? Exposure questionaire reviewed and attached to EXAM above ? -Reviewed the OEHEDS and COHER specific to the service members P.E.G -No signs or symptoms of [place]-related illness or injury. ? -Exposure concerns noted. ? -Wears PPE at all required times. ? -No medical concerns at this time. ? -No referral indicated. ? -No labs pending. ? -Audiogram complete, no threshold shift? -Return to clinic as needed. ? -Patient agrees with plan, all questions answered. ? -Medications reconciled. -Cleared for continued duty ? ASIMS reviewed, member is currently?not on a profile ? ? Fitness:?No Restrictions ? ? Duty:?No Restrictions ? ? Mobility:?World-wide Qualified ? ? ASIMS status:?Green ? Extracted from:Title: AUDIOGRAM Author: ANN URBAN Date: 07/30/22 Audiogram normal 1.?Are you on PRP/ AUOF or Fly Status? [ ?]?Yes ?[ X?] ?No. ? 2.?Visit for: Hearing Conservation Program: YES [?X?] ?NO [___]~Shop:?243A ? a.?TEST TYPE ??Reference [ ?] ??Annual [X ?] ??Termination [ ?] ??Follow-up #1 [ ?] ??Follow-up #2 [ ?] ??Non-Hearing Conservation [ ?] ??SHPE [ ?] ? 3.?Do you wear hearing aids? [ ] Yes?[ X?] ?No ? 4.??Do you currently have any ear, nose, or throat problems (i.e. cold, sinus infection, allergies, etc.) that are affecting your hearing? [ ] Yes* ?[ X?] ?No ? ? ? 5.??Are you currently experiencing tinnitus (ringing in your ears)? [ ] Yes?[ X?] ?No ? 6.??How many hours/days has it been since you were in an environment where you had to wear hearing protection and/or raise your voice within three feet of someone to communicate? 8 HOURS ? 7.?What type of hearing protection do you use MOST COMMONLY? [ ] N/A?[ X?] ?Handformed (Foamies) ?[ ?] ?Quad-Flange ? ?[ ?] ?Other: ? 8.?Do you wear double hearing protection (two types of hearing protection at the same time)? [X ] Yes?[ ?] ?No ? 9.?What type of double hearing protection do you wear? [ X] Noise Muffs?[ ] Helmet ?[ ?] ?Other: ? 10.?Do you wear safety glasses and/or goggles while performing your duties (when necessary)? [ X] Always [ ] Seldom?[ ?] ?N/A ? 11.???Are you or retiring from the in the next 12 months? [ ] Yes?[ X?] ?No ? 12.?Have you ever had your baseline Audiogram re-established? [ ] Yes ?[ X?] ?No ? ? ? 13.?Have you recently transferred to another shop? [ ] Yes ?[ ?X] ?No ? 14.?Do you work around hazardous noise for at least 8 hours a day? [X ] Yes?[ ?] ?No ? Physical findings? ? 15.???Member's audiogram results indicate: [X ] No STS?[ ] Positive STS?[ ] Negative STS?[ ?] ?N/A (DD Form 4736 / Non-Hearing Conservation) ? 16.???IAW MONIQUE [id number], Attachment 3, member has a hearing profile of: [X ] H-1?[ ] H-2?[ ] H-3?[ ?] ?H-4 ? 17.???Based on member's audiogram results, the following actions have been taken: ??[ ?] Member scheduled for a 14-hour noise-free follow up within 30 calendar days (see STS Follow-Up SF 600). ??[ ?] Member completed AF Form 7671 and referred to [facility] for ear evaluation. ??[ ] Member was given [facility] letter. ??[ ?] Member's information was entered into [facility] log. ??[ X?] Member will be due for next audiogram in 12 months. ??[ ?]?N/A ? 18.???The following was accomplished by Public Health: ??[ ?] Member was fitted with following hearing protection devices: ??[ ?X ] Member was educated in the proper care and use of hearing protection devices and encouraged to wear hearing protection. ??[ ?X] Member was educated on his/her audiogram results. ??[ ?X ] LEI Conducted ??[ ?] Fitness and Risk required? EXAM, FORMAL OCCUPATIONAL HEALTH PROGRAM INCLUDING HEARING CONSERVATION PROGRAM, PERIODIC FOR CONTINUED SURVEILLANCE FOR OCCUPATIONAL WORKPLACE EXPOSURE Extracted from:Title: Eye Care Optometry Follow Up Author: JAIME MUSE, OD Date: 07/14/22 1.?Right corneal abrasion Resolved, no pain remaining. No folds or irregularities in the cornea noted.?D/c ketorolac, continue oflox QID x 3 more days then d/c. Abrasion was from dog paw, but no evidence of infection at this point. Pt to RTC 1 year for regular eye exam or sooner with any pain or irritation. ? No problems with PRP at this time, pt feels comfortable returning to work. ? For PRAP Disposition please refer to message titled PRAP STAMP. This disposition encompasses all notes associated with this encounter. Extracted from:Title: Eye Care Optometry Acute Author: JAIME MUSE, OD Date: 07/11/22 1.?Right corneal abrasion Rx ofloxacin QID, ketorolac QID. Bandage CL (AO night and day -0.50) inserted in office. Pt is an experienced CL wearer (before PRK). Will touch base with patient tomorrow by phone, he will plan on removing the lens himself at home and replacing it with another fresh lens over the weekend. Pt to take OTC ibuprofen/tylenol as well. Pt ed on painful course of healing over next 48 hours. ? The dog is an inside dog, but still some risk for infection. RTC Thursday morning for evaluation or patient will contact me by phone if symptoms are worsening. ? Duty distracting pain, will relay to [place]. ? ? ? Orders: ketorolac ophthalmic(ketorolac 0.4% ophthalmic solution), 1 drop(s), Eye-Right, QID, X 4 days, # 5 mL, 0 total refill(s), Acute, any NSAID ophthalmic drop substitution is fine, 1 drop(s) Eye-Right QID,x4 days, Pharmacy: [facility] [Not filled] ofloxacin ophthalmic(ofloxacin 0.3% ophthalmic solution), 1 drop(s), Eye-Right, QID, X 5 days, # 5 mL, 0 total refill(s), Acute, 1 drop(s) Eye-Right QID,x5 days, Pharmacy: [facility] [Not filled] For PRAP Disposition please refer to message titled PRAP STAMP. This disposition encompasses all notes associated with this encounter. Extracted from:Title: admin close Author: SHYAM REDMAN PA Date: 07/11/22 1.?Administrative statuses was referred to optometry during their walk in. will admin close. Extracted from:Title: Knee pain follow up Author: JESSICA ELAINE PA Date: 06/23/22 1.?pain of left knee Chronic bilateral knee pain. PE done a month ago with no change in sx. XRs at that time were without significant findings. No improvement with conservative home tx. Will refer to PT for further evaluation and tx. Full eval deferred today as no change or worsening of sx since eval last month. No noted inciting event.? Pt denies duty limitations or distracting sx. Discussed ice therapy and use of NSAIDs and Tylenol PRN. Pt denied need for additional medication at this time.? Will place FR profile to allow for PT and gradual return to activity. Pt is aware to self report any duty distracting sx.? Pt to follow up if sx not improving with PT in 2 months or sooner if sx worsen or change. PVUA. ? Disposition: 1. 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 Y 4. Can member complete FA? Y with restrictions ? Visit summary with updated medication list? provided to the pt. ? 2.?Pain of right knee See above. PRAP?Consolidated Screener ? ? Behavioral Health Screening AUDIT-C Score: 0 (06/23/22) Initial Depression Screen Score: 0 Score (06/23/22) GAD2 Score: 0 Score (06/23/22) ? NEGATIVE SCREENER ? ? Pain Detail DVPRS Pain Scale: 4 - Distracts me, can do usual activities Past Week DVPRS score: 4 - Distracts me, can do usual activities ? ? ? Elevated screener, member?denies any duty impact or distracting symptoms?and is aware to self report duty distracting symptoms. ? ? For PRAP disposition please refer to PRAP STAMP.? Extracted from:Title: PRK POM12 Author: LUZ ELENA SANCHEZ OD Date: 09/20/21 RTC - for annual eye exams Extracted from:Title: Office Clinic Note Author: YULIYA OLIVIA MD Date: 09/11/21 1.?Melanocytic nevus of trunk ?We will perform shave biopsy for symptomatic debulking and also send it for path review, my suspicion is low for malignancy, but as his webbing belt/uniform rub on the lesion we will remove it for symptomatic benefit.? He is not taking any supplements known to increase bleeding. -pt to call [phone] to schedule a time convenient for him Extracted from:Title: Office Clinic Note Author: ALANNA GONZALEZ Date: 08/08/21 Audiogram normal EXAM, FORMAL OCCUPATIONAL HEALTH PROGRAM INCLUDING HEARING CONSERVATION PROGRAM, PERIODIC FOR CONTINUED SURVEILLANCE FOR OCCUPATIONAL WORKPLACE EXPOSURE No qualifying data available. Extracted from:Title: Ambulatory Patient Education Author: ALANNA GONZALEZ Date: 08/08/21 Patient Education Materials Follows: Preventing Hearing Loss, Adult Hearing loss is a partial or total loss of the ability to hear. Hearing loss may start suddenly or gradually, at any age. It may be temporary or permanent, and it may affect one or both ears. There are two types of hearing loss. You can have just one type or both types. You may have a problem with: Damage to your hearing nerves (sensorineural hearing loss). This type of hearing loss is more likely to be permanent. A hearing aid is often the best treatment. Sound getting to your inner ear (conductive hearing loss). This type of hearing loss can usually be treated medically or surgically. Hearing loss may be referred to as deafness. Symptoms that may develop along with hearing loss include ringing in your ear (tinnitus), fullness in your ear, and dizziness (vertigo). Hearing loss that is not associated with aging can often be prevented by taking certain measures to protect your ears. How can hearing loss affect me? Hearing loss can affect you at school, at work, and at home. It can lower your overall quality of life. You may: Have trouble having conversations, especially in busy places with a lot of background noise. Need to make changes at work or at school. Feel depressed, isolated, or anxious. Sometimes hearing loss can make it more difficult to make friends, play sports, and have an active social life. Struggle to hear the TV, radio, or sound at the movies. Have trouble hearing the phone or doorbell. Have trouble hearing alarms and other warning sounds. What changes can I make to protect myself from hearing loss? Have hearing tests (screenings) as often as directed by your health care provider. Hearing screenings can help detect hearing loss early and may help prevent hearing loss from getting worse. This may include having screenings done by: An ear, nose, and throat specialist (divisional merchandising manager or ENT specialist). A specialist in hearing problems (filament tester). Noise damage is the most preventable cause of hearing loss. Noise damage is caused by the loudness of the noise and how long you are exposed to it. Noises that can cause temporary or permanent nerve damage include noises from: Lawn mowers or chainsaws. Guns (firearms). Sirens. Jet engines. To avoid hearing loss from noise exposure: Wear ear protection whenever you are exposed to loud noises or working in a noisy environment, such as: ? Using a non profit director or leaf blower. ? Shooting firearms. ? Woodworking with machines. ? Being near jet engines or sirens. If you are exposed to loud noise at your job, make sure that you are provided with the proper noise protection. Do not sit close to speakers at concerts. If you listen to music, keep the volume at a comfortable level. If you wear headphones, make sure that the noise is only loud enough for you to hear. If someone else can hear it, it is too loud. What can I do to cope with hearing loss? Work with your health care providers to determine what types of treatment are best for you. If you need a hearing aid, have it fitted by a specialist. Do not buy hearing aids without having a hearing aid evaluation first. Use assistive hearing devices and warning devices or alarms that vibrate or use lights. Face people who are talking to you and pay attention to their expressions as they speak. Ask people if they can speak more clearly or more slowly. Tell friends and family about your hearing loss. Avoid areas that have a lot of background noise. If you are feeling isolated, anxious, or depressed, tell someone. Where to find support For more support: Talk with your health care provider. Ask about hearing screenings and online or in-person support groups. Find resources through the Hearing Loss Association of [place]: www.hearingloss.org Get tips for living with hearing loss from the [place] [employer] Association for the Deaf and Hard of Hearing: www.agbell.org Where to find more information Find more information about how to prevent hearing loss from: Centers for Disease Control and Prevention: www.cdc.gov National Fitzpatrick on Deafness and Other Communication Disorders: www.nidcd.nih.gov Contact a health care provider if you have: Any change in your hearing. Sudden hearing loss. Other symptoms, such as: ? Ear pain. ? Ear pressure. ? Tinnitus. ? Vertigo. Summary Have your hearing screened to detect early hearing loss and to prevent further loss. Hearing loss may be caused by damage to your hearing nerves, problems with sound getting to your inner ear, or both. Avoiding loud noises is the best way to prevent hearing loss. If your hearing changes suddenly, tell your health care provider right away. This information is not intended to replace advice given to you by your health care provider. Make sure you discuss any questions you have with your health care provider. Document Released: 07/21/2018 Document Revised: 07/21/2018 Document Reviewed: 07/21/2018 [employer] Interactive Patient Education ? 2019 [employer] [place] Extracted from:Title: Office Clinic Note Author: JABARI BRUNSON Date: 06/24/21 1.?Illness ?Patient presented to the respiratory clinic for COVID testing (either through assigned primary care clinic, [facility], [facility], 05/01 nurse access line, or self-referral). Pt met criteria for drive up testing (no emergent/severe/worrisome symptoms based on triage protocol), so no [id number] assessment was completed. COVID-19 PCR collected per recommendations/provider discretion. [facility] SARS-CoV-2 Lab Processing form completed and submitted with specimen. The patient was screened by Public Health upstream biomanufacturing technician prior to discharge for tracking and recommendations on isolation/quarantine. Non-urgent needs, if any, were deferred to the PCM team. Patient was given discharge instructions, including information on isolation, self-care, and urgent/routine return precautions. Patient will be contacted with results through the Respiratory Clinic. PVUA. ? Site of testing ? [ x] In-house Cepheid testing ? ? ? Extracted from:Title: PRK POM12 Author: LUZ ELENA SANCHEZ, OD Date: 05/03/21 RTC- for 12mo F/U Extracted from:Title: Eye Care Office Visit Note Author: OLVIN URBAN, OD Date: 05/01/21 1.?Internal hordeolum of left eye Ed pt. on findings. Pt. has internal hordeolum LL OS, recommended hot compresses at least 4 x daily for 15min. Ed pt. on possibility of chalazion?formation and need for injection or incision.? ? Rx bacitracin marichuy BID OS x 2 weeks, ed on importance of good eyelid hygiene to avoid stye formation. Recommended baby shampoo lid scrubs BID. RTC PRN if stye persists or any increase in pain or change in vision. ? Ordered: bacitracin ophthalmic, See Instructions, Apply 1/4 strip to lower eyelid in left eye twice daily, # 3.5 g, 0 total refill(s), Acute, Apply 1/4 strip to lower eyelid in left eye twice daily, Pharmacy: [id number] [External Rx] Ophthalmological [place] [id number] ? Extracted from:Title: PRK POM3 Author: LUZ ELENA SANCHEZ, OD Date: 02/08/21 RTC- for 6mo F/U Extracted from:Title: PRK POM1 Author: LUZ ELENA SANCHEZ, OD Date: 12/06/20 RTC- for 3mo F/U Extracted from:Title: PRK POD6 Author: LUZ ELENA SANCHEZ, OD Date: 11/06/20 RTC - for 1mo F/U Extracted from:Title: [facility] Medical Surveillance Exam Author: SHAQ ALANIS MD Date: 05/28/20 EXAM, FORMAL OCCUPATIONAL HEALTH PROGRAM INCLUDING HEARING CONSERVATION PROGRAM, PERIODIC FOR CONTINUED SURVEILLANCE FOR OCCUPATIONAL WORKPLACE EXPOSURE Ordered: Pure Tone Audiometry Air Only [id number] ? Member has negative replies on all OME work-specific questions and denies acute/chronic medical issues. ?Denies injury/illness or exposure at workplace. ?No significant conditions in medical history. ?Exam and testing normal. ? No concerns for occupationally-related injury/illness at this time. ?Patient reports regular use of appropriate PPE. ?Counseled on proper use of respirator, safety glasses, ear muffs/plugs, apron/gloves, and proper body movements/mechanics. ? Cleared to perform work-related duties - plan for regular, annual OME evaluation.? Diagnostic Tests PendingAP Surgical Pathology 09/19/21 08/11/2024 0006[facility] Assessment and Plan Extracted from:Title : Annual [facility] MHA/PHA Author: DEMARCO REY NP Date: 05/27/24 1.?EXAM/ASSESSMENT, OCCUPATIONAL, PRODUCTION HAND PERIODIC HEALTH ASSESSMENT (PHA) This encounter contains a review of the SM's chronic and active medical conditions since the date of the last PHA on file. SM present for virtual encounter. All age/gender specific CPS IAW USPSTF are up to date. ? IMR- Green.? Profile- none active.? ? +WWQ.? ? This MHA/PHA is for screening purposes only, and is Not to replace a face to face appointment with PCM or other specialty care?if needed. ? SM was informed that?if there are any?health concerns,?it is the SM's responsibility to schedule an appointment with PCM or specialty?care for evaluation and management. ? 2.?Nightmares ?F/U with PCM for evaluation.? SM instructed to report to ER or call suicide Hot line immediatly for any thoughts or plans of harming self or others.? ? 3.?Interrupted sleep ??F/U with PCM for evaluation.? Demarco Rey CTR?IDENTITY MANAGEMENT DEVELOPER-C [facility] Provider Flight Medicine? [employer] [place]??[address] [place] [phone] ? Extracted from:Title: Occupational Health Exam Author: CHLOE BLANCO DO Date: 10/14/23 1.?EXAM, FORMAL OCCUPATIONAL HEALTH PROGRAM INCLUDING HEARING CONSERVATION PROGRAM, PERIODIC FOR CONTINUED SURVEILLANCE FOR OCCUPATIONAL WORKPLACE EXPOSURE Physical exam?without?abnormalities. ? Audiogram reviewed ? ?H1?hearing,?no?asymmetric?hea ring loss,?no significant threshold shift ? ? No occupational injury or illness ? Fitness:?No restrictions. ? Duty:?No restrictions. ? Mobility: World-wide Qualified ? ASIMS:?Yellow for Dental exam. Informed member. ? Counseled on proper use of PPE.? ? F/U with PCM as needed. ? Patient medically cleared for occupational duties?without?restrictions. ? Extracted from:Title: PCS Concern Author: SVETLANA RICKS Date: 08/26/23 1.?Administrative statuses Discussed we do not clear patients for medical clearance. ?That would be through?[facility].?Will defer to for further guidance, but discussed should not be an issue as pt is in good health, has no new medical concerns, and is PCSing to [facility] location. At least med clearance, only thing that was flagged was concerning nightmares, reviewed and cleared by [facility] d/t PCS stress. Pt to f/u with PCM prn. ? Provided patient?[facility]?clinic plan of care sheet with detailed instructions to include?info regarding any necessary?f/u recommendations, new Rx, imaging, labs, referrals, BP check instructions, preventative health screening, IMR, Profile, and any additional PCM notes. ? Any items not discussed today based on provider triage and shared decision making between provider/patient,?were recommended to have additional appointments scheduled to discuss. ? ? Patient verbalized understanding and agrees with plan of care. ? ASIMS reviewed. ? Disposition:? ? 1. 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 3. 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 Y. ? 4. Can member complete FA??Y. 5. Quarters?? N ? ? ? Svetlana Ricks [employer], PA-C Staff Physician Chemical Processing Laborer, [facility] Medicine [facility] ([facility]) 5 OMRS, 5 Medical Group [address] [place] [address], [id number] ? ? Total Time:?20?minutes ? Total time includes medical decision making and preparation before the visit, the time spent examining the patient, documentation, and any post-visit care coordination?conducted on the day of the visit.? Some parts of this note were generated using voice-recognition software. Despite real-time proof-reading, supervisor record press errors might still be present. Please call if there are questions.? Extracted from:Title: AUDIOGRAM Author: NAOMI COON Date: 07/09/23 H1 hearing, no STS Extracted from:Title: AUDIOGRAM Note Author: NAOMI COON Date: 07/09/23 Audiogram normal 1. Are you on PRP/ AUOF or Fly Status? [ ] Yes ?[ X]??No. ? 2. 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 YES [ ]???NO??[X ]?ALERT [ ]?CONTROL??[ ] ? 3. Visit for: Hearing Conservation Program: YES [X ]??NO [ ]~Shop:243A ? a. TEST TYPE ??Reference [ ] ??Annual [X ] ??Termination [ ] ??Follow-up #1 [ ] ??Follow-up #2 [ ] ??Non-Hearing Conservation [ ] ??SHPE [ ] ? PHYSIC FINDINGS ? 4.???Member's Audiogram Results Indicate: [ X] No STS?[ ] Positive STS?[ ] Negative STS???[ X] Early warning for decrease in hearing?[ ] N/A ( DD FORM 2215/ Non-Hearing??Conservation ) [ ] Masking Required ? 5. IAW MONIQUE [id number], Attachment 3, member has a hearing profile of: [ ] H-1?[ X] H-2?[ ] H-3?[ ]??H-4 [ ] N/A ? 6.???Based on member's Audiogram results, the following actions have been taken: ??[ ] Member scheduled for a 14-hour noise-free follow up within 30 calendar days (see STS Follow-Up SF 600). ??[ ] Member completed AF Form 1753 and referred to PCM for ear evaluation. ??[ ] Member was given STS letter. ??[ ] Member's information was entered into STS log. ??[ X] Member will be due for next audiogram in 12 months. ??[ ] N/A ? 7.???The following was accomplished by [employer] [facility]: ??[ ] Member was fitted with following hearing protection devices: ??[ X] Member was educated in the proper care and use of hearing protection devices and encouraged to wear hearing protection. ??[ X] Member was educated on his/her audiogram results. ??[X ] LEI Conducted ??[ ] Fitness and Risk required? Extracted from:Title: Sleep Disturbance F/u Author: SVETLANA RICKS Date: 06/06/23 1.?Sleep disorder Asymptomatic for more than a year. -Negative sleep study?previously.? Reports that?his hallucinations were hypnopompic. -Discussed with SGP team,?would like recommendation from mental health regarding current status prior to clearance. -Discussed that?without recommendation from , patient unlikely to be?medically cleared for TDY exercise to [facility] from end of June to August. (on RASHID and RISSA orders) -Follow-up for?mental health appointment. ? ? ? Provided patient?a [employer] [facility]?clinic plan of care sheet with detailed instructions to include?info regarding any necessary?f/u recommendations, new Rx, imaging, labs, referrals, BP check instructions, preventative health screening, IMR, Profile, and any additional PCM notes. ? Any items not discussed today based on provider triage and shared decision making between provider/patient,?were recommended to have additional appointments scheduled to discuss. ? ? Patient verbalized understanding and agrees with plan of care. ? ASIMS reviewed. ? Disposition:? ? 1. Is member deployable?N. 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 3. 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 Y. ? 4. Can member complete FA??Y. 5. Quarters?? N ? ? ? Svetlana Ricks [employer], PA-C Staff Physician Chemical Processing Laborer, [facility] ([facility]) 5 [employer], [employer] [address], [place], [address] ? ? Total Time:?15?minutes ? Total time includes medical decision making and preparation before the visit, the time spent examining the patient, documentation, and any post-visit care coordination?conducted on the day of the visit.? Some parts of this note were generated using voice-recognition software. Despite real-time proof-reading, supervisor record press errors might still be present. Please call if there are questions.? Extracted from:Title: Profile Update Author: SVETLANA RICKS Date: 05/20/23 1.?Night terrors Resolved. -Seen by mental health at the time who attributed it to sleep deprivation (member was PCSing),?MH at the time did recommended?sleep study which was negative. -Discussed that I will?bring member up at the?[facility]?discussion. ?It is my recommendation due to symptom resolution and mental health assessment?the patient's case be removed. -Will f/u with pt regarding board decision ? ? 2.?Sleep walking Resolved. As above. ? Provided patient?a [employer] [facility]?clinic plan of care sheet with detailed instructions to include?info regarding any necessary?f/u recommendations, new Rx, imaging, labs, referrals, BP check instructions, preventative health screening, IMR, Profile, and any additional PCM notes. ? Any items not discussed today based on provider triage and shared decision making between provider/patient,?were recommended to have additional appointments scheduled to discuss. ? ? Patient verbalized understanding and agrees with plan of care. ? ASIMS reviewed. ? Disposition:? ? 1. Is member deployable?N. 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 3. 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 [facility] case review is pending ? 4. Can member complete FA??Y. 5. Quarters?? N ? ? ? Svetlana Ricks [employer], PA-C Staff Physician Chemical Processing Laborer, [facility] ([facility]) [employer] [facility] [employer] [address], [place], [address] ? ? Total Time:?20?minutes ? Total time includes medical decision making and preparation before the visit, the time spent examining the patient, documentation, and any post-visit care coordination?conducted on the day of the visit.? Some parts of this note were generated using voice-recognition software. Despite real-time proof-reading, supervisor record press errors might still be present. Please call if there are questions.? Extracted from:Title: MHA / PHA Author: LING LEONARDO Date: 04/29/23 1.?EXAM/ASSESSMENT, OCCUPATIONAL, PRODUCTION HAND PERIODIC HEALTH ASSESSMENT (PHA) ? ? MHA completed. See note above. Member reports that they are currently in?a? ?sound mental state and denies any mental health or ETOH concerns.? Member denies any suicidal/homicidal ideations, plan, intent or other self-directed violence. No request for medical or mental health appointment at this time.?No?referral indicated at this time ? ? Advised to f/u with PCM as needed. Member verbalized understanding, denies questions and agrees with plan of care.? ? Fitness for duty determination: 1) Meets deployment standards:?Yes? 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 Yes?? 3) Meets retention Standards:? Yes?? 4) Able to complete the Fitness assessment:? Yes ? ? Extracted from:Title: Office Clinic Note Author: BO NEW PA Date: 03/03/23 1.?Pain of right knee Secondary to patella tendinitis, subacute on chronic, benefited in the past with his formal physical therapy ? Moderately tender to palpation along the right patella tendon otherwise unremarkable examination ? Feldene as needed for pain and inflammation Formal physical therapy referral has been placed ? Ordered: piroxicam(Feldene 20 mg oral capsule), 1 cap(s), Oral, Daily, PRN pain (moderate), # 30 cap(s), 0 total refill(s), Maintenance, 1 cap(s) Oral Daily,PRN:pain (moderate), Pharmacy: [facility] [Not filled] Referral Request 2.0 ? 2.?pain of left knee Not demonstrated today, subacute on chronic?per?HPI ? Unremarkable examination today ? Feldene as needed for pain and inflammation Formal physical therapy referral has been placed ? Ordered: piroxicam(Feldene 20 mg oral capsule), 1 cap(s), Oral, Daily, PRN pain (moderate), # 30 cap(s), 0 total refill(s), Maintenance, 1 cap(s) Oral Daily,PRN:pain (moderate), Pharmacy: [facility] [Not filled] Referral Request 2.0 ? Patient declined profile today. ? ? Discussed the plan of care with the patient.?Patient understands and agrees with the plan of care. ? RTC as mentioned above or sooner?for any changes/concerns. ? Contact the clinic for any laboratory/radiology/diagnosti c tests results. ? If any referral have been place today, please contact Referral Management Center today and return or call clinic if any issues with any referral that [facility] cannot resolve. ? A copy of ambulatory patient summary associated with this encounter will be available to the patient through the patient portal. A portion of this note was completed through dictation and use of computer voice recognition software. ? ASIMS reviewed. ? Disposition:? ? 1. 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 3. 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 Y. ? 4. Can member complete FA??Y. 5. Quarters?? N ? ? Maj HOPKINS [employer], ALEXEY? [facility] ([facility]) Staff PA [employer], [employer]? [address] [place] [address]? [place] [phone] ? 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 Prev med counseling? (age/gender specific) ? Exposure questionaire reviewed and attached to EXAM above ? -Reviewed the OEHEDS and COHER specific to the service members P.E.G -No signs or symptoms of [place]-related illness or injury. ? -Exposure concerns noted. ? -Wears PPE at all required times. ? -No medical concerns at this time. ? -No referral indicated. ? -No labs pending. ? -Audiogram complete, no threshold shift? -Return to clinic as needed. ? -Patient agrees with plan, all questions answered. ? -Medications reconciled. -Cleared for continued duty ? ASIMS reviewed, member is currently?not on a profile ? ? Fitness:?No Restrictions ? ? Duty:?No Restrictions ? ? Mobility:?World-wide Qualified ? ? ASIMS status:?Green ? Extracted from:Title: AUDIOGRAM Author: ANN URBAN Date: 07/30/22 Audiogram normal 1.?Are you on PRP/ AUOF or Fly Status? [ ?]?Yes ?[ X?] ?No. ? 2.?Visit for: Hearing Conservation Program: YES [?X?] ?NO [___]~Shop:?243A ? a.?TEST TYPE ??Reference [ ?] ??Annual [X ?] ??Termination [ ?] ??Follow-up #1 [ ?] ??Follow-up #2 [ ?] ??Non-Hearing Conservation [ ?] ??SHPE [ ?] ? 3.?Do you wear hearing aids? [ ] Yes?[ X?] ?No ? 4.??Do you currently have any ear, nose, or throat problems (i.e. cold, sinus infection, allergies, etc.) that are affecting your hearing? [ ] Yes* ?[ X?] ?No ? ? ? 5.??Are you currently experiencing tinnitus (ringing in your ears)? [ ] Yes?[ X?] ?No ? 6.??How many hours/days has it been since you were in an environment where you had to wear hearing protection and/or raise your voice within three feet of someone to communicate? 8 HOURS ? 7.?What type of hearing protection do you use MOST COMMONLY? [ ] N/A?[ X?] ?Handformed (Foamies) ?[ ?] ?Quad-Flange ? ?[ ?] ?Other: ? 8.?Do you wear double hearing protection (two types of hearing protection at the same time)? [X ] Yes?[ ?] ?No ? 9.?What type of double hearing protection do you wear? [ X] Noise Muffs?[ ] Helmet ?[ ?] ?Other: ? 10.?Do you wear safety glasses and/or goggles while performing your duties (when necessary)? [ X] Always [ ] Seldom?[ ?] ?N/A ? 11.???Are you or retiring from the in the next 12 months? [ ] Yes?[ X?] ?No ? 12.?Have you ever had your baseline Audiogram re-established? [ ] Yes ?[ X?] ?No ? ? ? 13.?Have you recently transferred to another shop? [ ] Yes ?[ ?X] ?No ? 14.?Do you work around hazardous noise for at least 8 hours a day? [X ] Yes?[ ?] ?No ? Physical findings? ? 15.???Member's audiogram results indicate: [X ] No STS?[ ] Positive STS?[ ] Negative STS?[ ?] ?N/A (DD Form 2215 / Non-Hearing Conservation) ? 16.???IAW MONIQUE [address], Attachment 3, member has a hearing profile of: [X ] H-1?[ ] H-2?[ ] H-3?[ ?] ?H-4 ? 17.???Based on member's audiogram results, the following actions have been taken: ??[ ?] Member scheduled for a 14-hour noise-free follow up within 30 calendar days (see STS Follow-Up SF 600). ??[ ?] Member completed AF Form 1753 and referred to [facility] for ear evaluation. ??[ ] Member was given [facility] letter. ??[ ?] Member's information was entered into [facility] log. ??[ X?] Member will be due for next audiogram in 12 months. ??[ ?]?N/A ? 18.???The following was accomplished by [employer]: ??[ ?] Member was fitted with following hearing protection devices: ??[ ?X ] Member was educated in the proper care and use of hearing protection devices and encouraged to wear hearing protection. ??[ ?X] Member was educated on his/her audiogram results. ??[ ?X ] LEI Conducted ??[ ?] Fitness and Risk required? EXAM, FORMAL OCCUPATIONAL HEALTH PROGRAM INCLUDING HEARING CONSERVATION PROGRAM, PERIODIC FOR CONTINUED SURVEILLANCE FOR OCCUPATIONAL WORKPLACE EXPOSURE Extracted from:Title: Eye Care Optometry Follow Up Author: JAIME MUSE, OD Date: 07/14/22 1.?Right corneal abrasion Resolved, no pain remaining. No folds or irregularities in the cornea noted.?D/c ketorolac, continue oflox QID x 3 more days then d/c. Abrasion was from dog paw, but no evidence of infection at this point. Pt to RTC 1 year for regular eye exam or sooner with any pain or irritation. ? No problems with PRP at this time, pt feels comfortable returning to work. ? For PRAP Disposition please refer to message titled PRAP STAMP. This disposition encompasses all notes associated with this encounter. Extracted from:Title: Eye Care Optometry Acute Author: JAIME MUSE, OD Date: 07/11/22 1.?Right corneal abrasion Rx ofloxacin QID, ketorolac QID. Bandage CL (AO night and day -0.50) inserted in office. Pt is an experienced CL wearer (before PRK). Will touch base with patient tomorrow by phone, he will plan on removing the lens himself at home and replacing it with another fresh lens over the weekend. Pt to take OTC ibuprofen/tylenol as well. Pt ed on painful course of healing over next 48 hours. ? The dog is an inside dog, but still some risk for infection. RTC Thursday morning for evaluation or patient will contact me by phone if symptoms are worsening. ? Duty distracting pain, will relay to [place]. ? ? ? Orders: ketorolac ophthalmic(ketorolac 0.4% ophthalmic solution), 1 drop(s), Eye-Right, QID, X 4 days, # 5 mL, 0 total refill(s), Acute, any NSAID ophthalmic drop substitution is fine, 1 drop(s) Eye-Right QID,x4 days, Pharmacy: [facility] [Not filled] ofloxacin ophthalmic(ofloxacin 0.3% ophthalmic solution), 1 drop(s), Eye-Right, QID, X 5 days, # 5 mL, 0 total refill(s), Acute, 1 drop(s) Eye-Right QID,x5 days, Pharmacy: [facility] [Not filled] For PRAP Disposition please refer to message titled PRAP STAMP. This disposition encompasses all notes associated with this encounter. Extracted from:Title: admin close Author: SHYAM REDMAN PA Date: 07/11/22 1.?Administrative statuses was referred to optometry during their walk in. will admin close. Extracted from:Title: Knee pain follow up Author: JESSICA ELANIE PA Date: 06/23/22 1.?pain of left knee Chronic bilateral knee pain. PE done a month ago with no change in sx. XRs at that time were without significant findings. No improvement with conservative home tx. Will refer to PT for further evaluation and tx. Full eval deferred today as no change or worsening of sx since eval last month. No noted inciting event.? Pt denies duty limitations or distracting sx. Discussed ice therapy and use of NSAIDs and Tylenol PRN. Pt denied need for additional medication at this time.? Will place FR profile to allow for PT and gradual return to activity. Pt is aware to self report any duty distracting sx.? Pt to follow up if sx not improving with PT in 2 months or sooner if sx worsen or change. PVUA. ? Disposition: 1. 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 Y 4. Can member complete FA? Y with restrictions ? Visit summary with updated medication list? provided to the pt. ? 2.?Pain of right knee See above. PRAP?Consolidated Screener ? ? Behavioral Health Screening AUDIT-C Score: 0 (06/23/22) Initial Depression Screen Score: 0 Score (06/23/22) GAD2 Score: 0 Score (06/23/22) ? NEGATIVE SCREENER ? ? Pain Detail DVPRS Pain Scale: 4 - Distracts me, can do usual activities Past Week DVPRS score: 4 - Distracts me, can do usual activities ? ? ? Elevated screener, member?denies any duty impact or distracting symptoms?and is aware to self report duty distracting symptoms. ? ? For PRAP disposition please refer to PRAP STAMP.? Extracted from:Title: PRK POM12 Author: LUZ ELENA SANCHEZ, FRANCISCO Date: 09/20/21 RTC - for annual eye exams Extracted from:Title: Office Clinic Note Author: YULIAY OLIVIA MD Date: 09/11/21 1.?Melanocytic nevus of trunk ?We will perform shave biopsy for symptomatic debulking and also send it for path review, my suspicion is low for malignancy, but as his webbing belt/uniform rub on the lesion we will remove it for symptomatic benefit.? He is not taking any supplements known to increase bleeding. -pt to call [phone] to schedule a time convenient for him Extracted from:Title: Office Clinic Note Author: ALANNA GONZALEZ Date: 08/08/21 Audiogram normal EXAM, FORMAL OCCUPATIONAL HEALTH PROGRAM INCLUDING HEARING CONSERVATION PROGRAM, PERIODIC FOR CONTINUED SURVEILLANCE FOR OCCUPATIONAL WORKPLACE EXPOSURE No qualifying data available. Extracted from:Title: Ambulatory Patient Education Author: ALANNA GONZALEZ Date: 08/08/21 Patient Education Materials Follows: Preventing Hearing Loss, Adult Hearing loss is a partial or total loss of the ability to hear. Hearing loss may start suddenly or gradually, at any age. It may be temporary or permanent, and it may affect one or both ears. There are two types of hearing loss. You can have just one type or both types. You may have a problem with: Damage to your hearing nerves (sensorineural hearing loss). This type of hearing loss is more likely to be permanent. A hearing aid is often the best treatment. Sound getting to your inner ear (conductive hearing loss). This type of hearing loss can usually be treated medically or surgically. Hearing loss may be referred to as deafness. Symptoms that may develop along with hearing loss include ringing in your ear (tinnitus), fullness in your ear, and dizziness (vertigo). Hearing loss that is not associated with aging can often be prevented by taking certain measures to protect your ears. How can hearing loss affect me? Hearing loss can affect you at school, at work, and at home. It can lower your overall quality of life. You may: Have trouble having conversations, especially in busy places with a lot of background noise. Need to make changes at work or at school. Feel depressed, isolated, or anxious. Sometimes hearing loss can make it more difficult to make friends, play sports, and have an active social life. Struggle to hear the TV, radio, or sound at the movies. Have trouble hearing the phone or doorbell. Have trouble hearing alarms and other warning sounds. What changes can I make to protect myself from hearing loss? Have hearing tests (screenings) as often as directed by your health care provider. Hearing screenings can help detect hearing loss early and may help prevent hearing loss from getting worse. This may include having screenings done by: An ear, nose, and throat specialist (divisional merchandising manager or ENT specialist). A specialist in hearing problems (filament tester). Noise damage is the most preventable cause of hearing loss. Noise damage is caused by the loudness of the noise and how long you are exposed to it. Noises that can cause temporary or permanent nerve damage include noises from: Lawn mowers or chainsaws. Guns (firearms). Sirens. Jet engines. To avoid hearing loss from noise exposure: Wear ear protection whenever you are exposed to loud noises or working in a noisy environment, such as: ? Using a non profit director or leaf blower. ? Shooting firearms. ? Woodworking with machines. ? Being near jet engines or sirens. If you are exposed to loud noise at your job, make sure that you are provided with the proper noise protection. Do not sit close to speakers at concerts. If you listen to music, keep the volume at a comfortable level. If you wear headphones, make sure that the noise is only loud enough for you to hear. If someone else can hear it, it is too loud. What can I do to cope with hearing loss? Work with your health care providers to determine what types of treatment are best for you. If you need a hearing aid, have it fitted by a specialist. Do not buy hearing aids without having a hearing aid evaluation first. Use assistive hearing devices and warning devices or alarms that vibrate or use lights. Face people who are talking to you and pay attention to their expressions as they speak. Ask people if they can speak more clearly or more slowly. Tell friends and family about your hearing loss. Avoid areas that have a lot of background noise. If you are feeling isolated, anxious, or depressed, tell someone. Where to find support For more support: Talk with your health care provider. Ask about hearing screenings and online or in-person support groups. Find resources through the Hearing Loss Association of [place]: www.hearingloss.org Get tips for living with hearing loss from the [place] [employer] Association for the Deaf and Hard of Hearing: www.agbell.org Where to find more information Find more information about how to prevent hearing loss from: Centers for Disease Control and Prevention: www.cdc.gov National Fitzpatrick on Deafness and Other Communication Disorders: www.nidcd.nih.gov Contact a health care provider if you have: Any change in your hearing. Sudden hearing loss. Other symptoms, such as: ? Ear pain. ? Ear pressure. ? Tinnitus. ? Vertigo. Summary Have your hearing screened to detect early hearing loss and to prevent further loss. Hearing loss may be caused by damage to your hearing nerves, problems with sound getting to your inner ear, or both. Avoiding loud noises is the best way to prevent hearing loss. If your hearing changes suddenly, tell your health care provider right away. This information is not intended to replace advice given to you by your health care provider. Make sure you discuss any questions you have with your health care provider. Document Released: 07/21/2018 Document Revised: 07/21/2018 Document Reviewed: 07/21/2018 [employer] Interactive Patient Education ? 2019 [employer] [place] Extracted from:Title: Office Clinic Note Author: JABARI BRUNSON Date: 06/24/21 1.?Illness ?Patient presented to the respiratory clinic for COVID testing (either through assigned primary care clinic, [facility], [facility] [place] [facility], 05/01 nurse access line, or self-referral). Pt met criteria for drive up testing (no emergent/severe/worrisome symptoms based on triage protocol), so no [id number] assessment was completed. COVID-19 PCR collected per recommendations/provider discretion. [facility] SARS-CoV-2 Lab Processing form completed and submitted with specimen. The patient was screened by [facility] upstream biomanufacturing technician prior to discharge for tracking and recommendations on isolation/quarantine. Non-urgent needs, if any, were deferred to the PCM team. Patient was given discharge instructions, including information on isolation, self-care, and urgent/routine return precautions. Patient will be contacted with results through the Respiratory Clinic. PVUA. ? Site of testing ? [ x] In-house Cepheid testing ? ? ? Extracted from:Title: PRK POM12 Author: LUZ ELENA SANCHEZ, OD Date: 05/03/21 RTC- for 12mo F/U Extracted from:Title: Eye Care Office Visit Note Author: OLVIN URBAN, OD Date: 05/01/21 1.?Internal hordeolum of left eye Ed pt. on findings. Pt. has internal hordeolum LL OS, recommended hot compresses at least 4 x daily for 15min. Ed pt. on possibility of chalazion?formation and need for injection or incision.? ? Rx bacitracin marichuy BID OS x 2 weeks, ed on importance of good eyelid hygiene to avoid stye formation. Recommended baby shampoo lid scrubs BID. RTC PRN if stye persists or any increase in pain or change in vision. ? Ordered: bacitracin ophthalmic, See Instructions, Apply 1/4 strip to lower eyelid in left eye twice daily, # 3.5 g, 0 total refill(s), Acute, Apply 1/4 strip to lower eyelid in left eye twice daily, [id number] [External Rx] Ophthalmological [place] [address] ? Extracted from:Title: PRK POM3 Author: LUZ ELENA SANCHEZ, OD Date: 02/08/21 RTC- for 6mo F/U Extracted from:Title: PRK POM1 Author: LUZ ELENA SANCHEZ, OD Date: 12/06/20 RTC- for 3mo F/U Extracted from:Title: PRK [id number] Author: LUZ ELENA SANCHEZ, OD Date: 11/06/20 RTC - for 1mo F/U Extracted from:Title: [facility] Medical Surveillance Exam Author: SHAQ ALANIS MD Date: 05/28/20 EXAM, FORMAL OCCUPATIONAL HEALTH PROGRAM INCLUDING HEARING CONSERVATION PROGRAM, PERIODIC FOR CONTINUED SURVEILLANCE FOR OCCUPATIONAL WORKPLACE EXPOSURE Ordered: Pure Tone Audiometry Air Only [id number] ? Member has negative replies on all OME work-specific questions and denies acute/chronic medical issues. ?Denies injury/illness or exposure at workplace. ?No significant conditions in medical history. ?Exam and testing normal. ? No concerns for occupationally-related injury/illness at this time. ?Patient reports regular use of appropriate PPE. ?Counseled on proper use of respirator, safety glasses, ear muffs/plugs, apron/gloves, and proper body movements/mechanics. ? Cleared to perform work-related duties - plan for regular, annual OME evaluation.? Diagnostic Tests PendingAP Surgical Pathology 09/19/21 08/11/2024 [id number] Functional Status Combined list of recent functional and cognitive assessments recorded at [facility] [employer] [facility] Functional Giles Measurement (FIM) Scale: 1 = Total Assistance (Subject = 0% +), 2 = Maximal Assistance (Subject = 25% +), 3 = Moderate Assistance (Subject = 50% +), 4 = Minimal Assistance (Subject = 75% +), 5 = Supervision, 6 = Modified Giles (Device), 7 = Complete Giles (Timely, Safely). Assessment Date/Time Source Assessment Type Assessment Skill Assessment Score Assessment Details No data available for this section
[2024-08-11 10:05] LABS: MANUAL DIFF FLAG NO
[2024-08-11 10:20] LABS: Basophils Percent Auto 0.8 % (0-2); Eosinophils Absolute Auto 0.1 X10*3/uL (0.0-0.4); Eosinophils Percent Auto 1.6 % (0-4); Hematocrit 41.7 % (42.0-52.0); Hemoglobin 15.1 g/dl (14.0-18.0); Lymphocytes Absolute Auto 1.2 X10*3/uL (1.2-4.9); Lymphocytes Percent Auto 32.6 % (20-40); Mean Corpuscular HGB Conc 36.2 g/dl (31.0-36.0); Mean Corpuscular Volume 91.2 fL (80.0-98.0); Mean Platelet Volume 12.4 fL (9.4-12.4); Monocytes Absolute Auto 0.4 X10*3/uL (0.1-1.2); Monocytes Percent Auto 9.7 % (2-11); Neutrophils Absolute Auto 2.1 x10*3/uL (2.0-8.3); Neutrophils Percent Auto 55.3 % (45-73); Platelet Count 166 X10*3/uL (160-400); Red Blood Count 4.57 X10*6/uL (4.60-5.80); Red Cell Distribution Width 11.7 % (11.0-16.0); White Blood Count 3.8 X10*3/uL (4.8-10.8)
[2024-08-11 10:23] LABS: Appearance Urine Turbid; Color Urine Yellow; Glucose Urine UA Negative (Negative); Leukocyte Esterase Urine Negative (Negative); Nitrite Urine Negative (Negative); Specific Gravity - Urine >= 1.030 (1.005-1.025); Urine Blood Negative (Negative); Urine Ketones Negative (Negative); Urine Protein Trace mg/dL (Neg-Trace)
[2024-08-11 10:51] LABS: Alanine Aminotransferase 23 U/L (0-40); Albumin Level 4.6 g/dL (3.5-5.0); Alkaline Phosphatase 73 U/L (39-117); Anion Gap 10 (12-20); Aspartate Amino Transferase 23 U/L (5-37); Bilirubin Total 1.1 mg/dL (0.0-1.0); Blood Urea Nitrogen 13 mg/dL (9-16); Calcium 9.2 mg/dL (8.4-10.2); Carbon Dioxide 26 mmol/L (22-29); Chloride 109 mmol/L (96-108); Cholesterol 127 mg/dL (<200); Estimated Glomerular Filt Rate > 60; Glucose Fasting 89 mg/dL (60-99); HDL Cholesterol 56 mg/dL (>40); LDL Cholesterol Calculated 63 mg/dL (<100); Potassium 3.9 mmol/L (3.3-5.1); Sodium 141 mmol/L (135-145); Total Protein 7.2 g/dL (6.5-8.0); Triglycerides 42 mg/dL (<150)
[2024-08-11 10:53] LABS: TSH reflex Free T4 0.52 uIU/mL (0.32-4.0)
== END 2024-08-11 08:19 | disposition home or self-care (01) ==
LOC: HO.HMGCLDS 08:18
PROVIDERS: PCP Nurse Practitioner Family; Visit Provider Nurse Practitioner Family
DX: Z00.00 Encounter for general adult medical examination without abnormal findings (principal)
CPT/HCPCS: 36415; 80053; 80061; 81003; 84443; 85025

== ENCOUNTER 2024-08-13 11:15 | Outpatient (REF) | payer OTHER, SELFPAY ==
--- OUTSIDE RECORDS SUMMARY | 2024-08-13 11:17 | XMS_ITS | Continuity of Care Document ---
Author Organization [facility] Address [address] [place] [address] Phone Care Team Providers Care Corrections Sergeant Name Role Phone Randall Barrientos OD Unavailable Unavailable Allergies, Adverse Reactions, Alerts Substance Reaction Status Criticality No Known Allergies Active No Inform ation Procedures Procedure Date Corneal Top Corneal Top Advance Directives Directive Yes / No Effective Date File Name No Information Encounters Encounter Description Practice Location Reason(s) For Visit Diagnoses Date Provider Providers Copied on Encounter [facility], [address] [place], [place], [id number], tel:[phone] [place] [facility] Topography testing only (chief complaint)To pography testing only (chief complaint) Keratoconus Nos [address]. [address] [place], [address], [place]. tel:[phone] Referring Provider: Elijah Moralez, [address], [address] [facility], [place], [address]. tel:[phone] Family History Family Member Type Diagnosis Age At Onset No Information Payers Payer name Insurance type Covered republican ID Authoriza tion(s) No Information Social History [...]
--- OUTSIDE RECORDS SUMMARY | 2024-08-13 11:17 | XMS_ITS ---
Total Time:?20?minutes ? Total time includes medical decision making and preparation before the visit, the time spent examining the patient, documentation, and any post-visit care coordination?conducted on the day of the visit.? Some parts of this note were generated using voice-recognition software. Despite real-time proof-reading, truck loader errors might still be present. Please call [...] in hearing?[ ] N/A ( DD FORM 0405/ Non-Hearing??Conservation ) [ ] Masking Required ? 5. IAW MONIQUE [id number], Attachment 3, member has a hearing profile of: [ ] H-1?[ X] H-2?[ ] H-3?[ ]??H-4 [ ] N/A ? 6.???Based on member's Audiogram results, the following actions have been taken: ??[ ] Member scheduled for a 14-hour noise-free follow up within 30 calendar days (see STS Follow-Up SF 600). ??[ ] Member completed AF Form 1751 and referred to PCM for ear evaluation. ??[ ] Member was given STS letter. ??[ ] Member's information was entered into STS log. ??[ X] Member will be due for next audiogram in 12 months. ??[ ] N/A ? 7.???The following was accomplished by [employer]: ??[ ] Member was fitted with following [...] to be?medically cleared for TDY exercise to [place] from end of June to August. (on RASHID and RISSA orders) -Follow-up for?mental health appointment. ? ? ? Provided patient?a [employer] [facility]?clinic plan of care sheet with detailed instructions [...] ? Svetlana Ricks USA[employer], PA-C Staff Physician Java Groovy Developer, [facility] ([facility]) 5 OMRS, [facility] [address], [place], [address] ? ? Total Time:?15?minutes ? Total time includes medical decision making and preparation before the visit, the time spent examining the patient, documentation, and any post-visit care coordination?conducted on the day of the visit.? Some parts of this note were generated using voice-recognition software. Despite real-time proof-reading, truck loader errors might still be present. Please call [...] walking Resolved. As above. ? Provided patient?a [place] [employer] [facility]?clinic plan of care sheet with detailed instructions [...] ? Svetlana Ricks [employer], PA-C Staff Physician Java Groovy Developer, [facility] ([facility]) 5 OMRS, [facility] [address], [place], [address] ? ? Total Time:?20?minutes ? Total time includes medical decision making and preparation before the visit, the time spent examining the patient, documentation, and any post-visit care coordination?conducted on the day of the visit.? Some parts of this note were generated using voice-recognition software. Despite real-time proof-reading, truck loader errors might still be present. Please call if there are questions.? 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 ? MHA [...] Maintenance, 1 cap(s) Oral Daily,PRN:pain (moderate), Pharmacy: [facility] [Not filled] Referral Request 2.0 ? 2.?pain of left knee Not demonstrated today, subacute on chronic?per?HPI ? Unremarkable examination today ? Feldene as needed for pain and inflammation Formal physical therapy referral has been placed ? Ordered: piroxicam(Feldene 20 mg oral capsule), 1 cap(s), Oral, Daily, PRN pain (moderate), # 30 cap(s), 0 total refill(s), Maintenance, 1 cap(s) Oral Daily,PRN:pain (moderate), Pharmacy: [facility] [Not filled] Referral Request 2.0 ? [...] if any issues with any referral that [facility] cannot resolve. ? A copy of ambulatory [...] N ? ? Maj HOPKINS USAF, ALEXEY? [facility] Medicine [facility] ([facility]) Staff PA 5 OMRS, 5 [facility]? [address] [place] [address]? [place] [address] ? 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 Prev med counseling? [...] 2215 / Non-Hearing Conservation) ? 16.???IAW MONIQUE 34-088, Attachment 3, member has a hearing profile of: [X ] H-1?[ ] H-2?[ ] H-3?[ ?] ?H-4 ? 17.???Based on member's audiogram results, the following actions have been taken: ??[ ?] Member scheduled for a 14-hour noise-free follow up within 30 calendar days (see STS Follow-Up SF 600). ??[ ?] Member completed AF Form 175 and referred to [facility] for ear evaluation. ??[ ] Member was [...] fine, 1 drop(s) Eye-Right QID,x4 days, Pharmacy: [facility] [Not filled] ofloxacin ophthalmic(ofloxacin 0.3% ophthalmic solution), 1 drop(s), Eye-Right, QID, X 5 days, # 5 mL, 0 total refill(s), Acute, 1 drop(s) Eye-Right QID,x5 days, Pharmacy: [facility] [Not filled] For PRAP Disposition please [...] known to increase bleeding. -pt to call [phone] to schedule a time convenient for him [...] by: An ear, nose, and throat specialist (bull riveter or ENT specialist). A specialist in hearing problems (manager strategic alliances). Noise damage is the most preventable cause [...] noisy environment, such as: ? Using a quality assurance representative or leaf blower. ? Shooting firearms. ? [...] for Disease Control and Prevention: www.cdc.gov National Ronald on Deafness and Other Communication Disorders: www.nidcd.nih.gov [...] 07/21/2018 Document Revised: 07/21/2018 Document Reviewed: 07/21/2018 [employer] Interactive Patient Education ? 2019 [employer] Extracted from:Title: Office Clinic Note Author: JABARI BRUNSON Date: 06/24/21 1.?Illness ?Patient presented to the respiratory clinic for COVID testing (either through assigned primary care clinic, [facility], [facility], /7 nurse access line, or self-referral). Pt met criteria for drive up testing (no emergent/severe/worrisome symptoms based on triage protocol), so no nnew-re-pdpc assessment was completed. COVID-19 PCR collected per recommendations/provider discretion. [facility] SARS-CoV-2 Lab Processing form completed and submitted with specimen. The patient was screened by [facility] pharmacy technician inpatient prior to discharge for tracking and recommendations [...] in left eye twice daily, Pharmacy: [id number] [External Rx] Ophthalmological [place] X[place] [address] ? Extracted from:Title: PRK POM3 Author: LUZ ELENA SANCHEZ, OD Date: 02/08/21 RTC- for 6mo F/U Extracted from:Title: PRK POM1 Author: LUZ ELENA SANCHEZ, OD Date: 12/06/20 RTC- for 3mo F/U Extracted from:Title: PRK POD6 Author: LUZ ELENA SANCHEZ, OD Date: 11/06/20 RTC - for 1mo F/U Extracted from:Title: [facility] Health Medical Surveillance Exam Author: SHAQ ALANIS MD Date: 05/28/20 EXAM, FORMAL OCCUPATIONAL HEALTH PROGRAM INCLUDING HEARING CONSERVATION PROGRAM, PERIODIC FOR CONTINUED SURVEILLANCE FOR OCCUPATIONAL WORKPLACE EXPOSURE Ordered: Pure Tone Audiometry Air Only [id number] ? Member has negative replies on all [...] evaluation.? 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 Demarco Rey CTR?BULL DRIVER-C [facility] Provider Flight Medicine? [address] [place], [place]??[address] [facility] [phone] ? Extracted from:Title: Occupational Health Exam Author: [...] patients for medical clearance. ?That would be through?[facility].?Will defer to for further guidance, but discussed should not be an issue as pt is in good health, has no new medical concerns, and is PCSing to [facility]. At least med clearance, only thing that was flagged was concerning nightmares, reviewed and cleared by [facility] d/t PCS stress. Pt to f/u with PCM prn. ? Provided patient?a [employer] [facility]?clinic plan of care sheet with detailed instructions [...] ? Svetlana Ricks [employer], PA-C Staff Physician Java Groovy Developer, [facility] ([facility]) 5 OMRS, [facility] [address], [place], [address] ? ? Total Time:?20?minutes ? Total time includes medical decision making and preparation before the visit, the time spent examining the patient, documentation, and any post-visit care coordination?conducted on the day of the visit.? Some parts of this note were generated using voice-recognition software. Despite real-time proof-reading, truck loader errors might still be present. Please call [...] 600). ??[ ] Member completed AF Form 1436 and referred to [facility] for ear evaluation. ??[ ] Member was given RUST letter. ??[ ] Member's information was entered into RUST log. ??[ X] Member will be due for next audiogram in 12 months. ??[ ] N/A ? 7.???The following was accomplished by [employer] [facility]: ??[ ] [...] to be?medically cleared for TDY exercise to [place] from end of June to August. (on RASHID and RISSA orders) -Follow-up for?mental health appointment. ? ? ? Provided patient?[facility]cl[facility] plan of care sheet with detailed instructions [...] ? Svetlana Ricks [employer], PA-C Staff Physician Java Groovy Developer, [facility] ([facility]) 5 OMRS, [facility] [address] [place] [address], [facility] ? ? Total Time:?15?minutes ? Total time includes medical decision making and preparation before the visit, the time spent examining the patient, documentation, and any post-visit care coordination?conducted on the day of the visit.? Some parts of this note were generated using voice-recognition software. Despite real-time proof-reading, truck loader errors might still be present. Please call [...] walking Resolved. As above. ? Provided patient?a [employer] [facility]?clinic plan of care sheet with detailed instructions [...] ? Svetlana Ricks [employer], PA-C Staff Physician Java Groovy Developer, [facility] ([facility]) 5 OMRS, [facility] [address], [place], [address] ? ? Total Time:?20?minutes ? Total time includes medical decision making and preparation before the visit, the time spent examining the patient, documentation, and any post-visit care coordination?conducted on the day of the visit.? Some parts of this note were generated using voice-recognition software. Despite real-time proof-reading, truck loader errors might still be present. Please call if there are questions.? 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 ? MHA [...] Maintenance, 1 cap(s) Oral Daily,PRN:pain (moderate), Pharmacy: [facility] [Not filled] Referral Request 2.0 ? 2.?pain of left knee Not demonstrated today, subacute on chronic?per?HPI ? Unremarkable examination today ? Feldene as needed for pain and inflammation Formal physical therapy referral has been placed ? Ordered: piroxicam(Feldene 20 mg oral capsule), 1 cap(s), Oral, Daily, PRN pain (moderate), # 30 cap(s), 0 total refill(s), Maintenance, 1 cap(s) Oral Daily,PRN:pain (moderate), Pharmacy: [facility] [Not filled] Referral Request 2.0 ? [...] if any issues with any referral that [facility] cannot resolve. ? A copy of ambulatory [...] complete FA??Y. 5. Quarters?? N ? ? BO NEW, , MARKY, PAAdi? [facility] ([facility]) Staff PA 5 OMRS, 5 Medical Group? [address] [place] [address]? [place], [place] [address] ? 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 Prev med counseling? [...] ] Negative STS?[ ?] ?N/A (DD Form 0761 / Non-Hearing Conservation) ? 16.???IAW MONIQUE 36-805, Attachment 3, member has a hearing profile of: [X ] H-1?[ ] H-2?[ ] H-3?[ ?] ?H-4 ? 17.???Based on member's audiogram results, the following actions have been taken: ??[ ?] Member scheduled for a 14-hour noise-free follow up within 30 calendar days (see STS Follow-Up SF 600). ??[ ?] Member completed AF Form 1183 and referred to [facility] for ear evaluation. ??[ ] Member was given RUST letter. ??[ ?] Member's information was entered into RUST log. ??[ X?] Member will be due [...] fine, 1 drop(s) Eye-Right QID,x4 days, Pharmacy: [facility] [Not filled] ofloxacin ophthalmic(ofloxacin 0.3% ophthalmic solution), 1 drop(s), Eye-Right, QID, X 5 days, # 5 mL, 0 total refill(s), Acute, 1 drop(s) Eye-Right QID,x5 days, Pharmacy: [facility] [Not filled] For PRAP Disposition please [...] known to increase bleeding. -pt to call [phone] to schedule a time convenient for him [...] by: An ear, nose, and throat specialist (bull riveter or ENT specialist). A specialist in hearing problems (manager strategic alliances). Noise damage is the most preventable cause [...] noisy environment, such as: ? Using a quality assurance representative or leaf blower. ? Shooting firearms. ? [...] for Disease Control and Prevention: www.cdc.gov National Ronald on Deafness and Other Communication Disorders: www.nidcd.nih.gov [...] 07/21/2018 Document Revised: 07/21/2018 Document Reviewed: 07/21/2018 [employer] Interactive Patient Education ? 2019 [employer] Extracted from:Title: Office Clinic Note Author: JABARI BRUNSON Date: 06/24/21 1.?Illness ?Patient presented to the respiratory clinic for COVID testing (either through assigned primary care clinic, [facility], [facility], 05/01 nurse access line, or self-referral). Pt met criteria for drive up testing (no emergent/severe/worrisome symptoms based on triage protocol), so no xprn-ly-bijy assessment was completed. COVID-19 PCR collected per recommendations/provider discretion. [facility] SARS-CoV-2 Lab Processing form completed and submitted with specimen. The patient was screened by [facility] pharmacy technician inpatient prior to discharge for tracking and recommendations [...] in left eye twice daily, Pharmacy: [id number] [External Rx] Ophthalmological Medical Xm&[place] [address] ? Extracted from:Title: PRK POM3 Author: LUZ ELENA SANCHEZ, OD Date: 02/08/21 RTC- for 6mo F/U Extracted from:Title: PRK POM1 Author: LUZ ELENA SANCHEZ, OD Date: 12/06/20 RTC- for 3mo F/U Extracted from:Title: PRK POD6 Author: LUZ ELENA SANCHEZ, OD Date: 11/06/20 RTC - for 1mo F/U Extracted from:Title: [facility] Health Medical Surveillance Exam Author: SHAQ ALANIS MD Date: 05/28/20 EXAM, FORMAL OCCUPATIONAL HEALTH PROGRAM INCLUDING HEARING CONSERVATION PROGRAM, PERIODIC FOR CONTINUED SURVEILLANCE FOR OCCUPATIONAL WORKPLACE EXPOSURE Ordered: Pure Tone Audiometry Air Only [address] ? Member has negative replies on all [...] evaluation.? 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 Demarco Rey CTR?BULL DRIVER-C [facility] Provider Flight Medicine? [employer] [facility] [place]??[address] [facility] [phone] ? Extracted from:Title: Occupational Health Exam Author: [...] patients for medical clearance. ?That would be through?[facility].?Will defer to for further guidance, but discussed should not be an issue as pt is in good health, has no new medical concerns, and is PCSing to [facility] location. At least med clearance, only thing that was flagged was concerning nightmares, reviewed and cleared by [facility] d/t PCS stress. Pt to f/u with PCM prn. ? Provided patient?a [employer] [employer] [facility]?clinic plan of care sheet with detailed instructions [...] ? Svetlana Ricks [employer], PA-C Staff Physician Java Groovy Developer, [facility] ([facility]) 5 OMRS, [facility] [address] [place] [address], [address] ? ? Total Time:?20?minutes ? Total time includes medical decision making and preparation before the visit, the time spent examining the patient, documentation, and any post-visit care coordination?conducted on the day of the visit.? Some parts of this note were generated using voice-recognition software. Despite real-time proof-reading, truck loader errors might still be present. Please call [...] in hearing?[ ] N/A ( DD FORM 0015/ Non-Hearing??Conservation ) [ ] Masking Required ? [...] 600). ??[ ] Member completed AF Form 2454 and referred to [facility] for ear evaluation. ??[ ] Member was given RUST letter. ??[ ] Member's information was entered into RUST log. ??[ X] Member will be due [...] to be?medically cleared for TDY exercise to [place] from end of June to August. (on RASHID and RISSA orders) -Follow-up for?mental health appointment. ? ? ? Provided patient?a [employer] [facility]?clinic plan of care sheet with detailed instructions [...] ? Svetlana Ricks [employer], PA-C Staff Physician Java Groovy Developer, [facility] ([facility]) 5 OMRS, [facility] [address] [place] [address], [address] ? ? Total Time:?15?minutes ? Total time includes medical decision making and preparation before the visit, the time spent examining the patient, documentation, and any post-visit care coordination?conducted on the day of the visit.? Some parts of this note were generated using voice-recognition software. Despite real-time proof-reading, truck loader errors might still be present. Please call [...] walking Resolved. As above. ? Provided patient?a [employer] [facility]?clinic plan of care sheet with detailed instructions [...] ? Svetlana Ricks [employer], PA-C Staff Physician Java Groovy Developer, [facility] ([facility]) 5 OMRS, [facility] [address] [place] [address], [facility] ? ? Total Time:?20?minutes ? Total time includes medical decision making and preparation before the visit, the time spent examining the patient, documentation, and any post-visit care coordination?conducted on the day of the visit.? Some parts of this note were generated using voice-recognition software. Despite real-time proof-reading, truck loader errors might still be present. Please call if there are questions.? 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 ? MHA [...] Maintenance, 1 cap(s) Oral Daily,PRN:pain (moderate), Pharmacy: [facility] [Not filled] Referral Request 2.0 ? 2.?pain of left knee Not demonstrated today, subacute on chronic?per?HPI ? Unremarkable examination today ? Feldene as needed for pain and inflammation Formal physical therapy referral has been placed ? Ordered: piroxicam(Feldene 20 mg oral capsule), 1 cap(s), Oral, Daily, PRN pain (moderate), # 30 cap(s), 0 total refill(s), Maintenance, 1 cap(s) Oral Daily,PRN:pain (moderate), Pharmacy: [facility] [Not filled] Referral Request 2.0 ? [...] if any issues with any referral that [facility] cannot resolve. ? A copy of ambulatory [...] Quarters?? N ? ? Maj KELLIE, MARKY, PAAdi? [facility] ([facility]) Staff PA 5 OMRS, 5 Medical Group? [address] [place] [address]? [place] [address] ? 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 Prev med counseling? [...] ] Negative STS?[ ?] ?N/A (DD Form 4699 / Non-Hearing Conservation) ? 16.???IAW MONIQUE 48-903, Attachment 3, member has a hearing profile of: [X ] H-1?[ ] H-2?[ ] H-3?[ ?] ?H-4 ? 17.???Based on member's audiogram results, the following actions have been taken: ??[ ?] Member scheduled for a 14-hour noise-free follow up within 30 calendar days (see STS Follow-Up SF 600). ??[ ?] Member completed AF Form 0293 and referred to [facility] for ear evaluation. ??[ ] Member was given RUST letter. ??[ ?] Member's information was entered into RUST log. ??[ X?] Member will be due [...] Care Optometry Follow Up Author: JAIME MUSE Vandana, OD Date: 07/14/22 1.?Right corneal abrasion Resolved, [...] from:Title: Eye Care Optometry Acute Author: JAIME MUSE Vandana, OD Date: 07/11/22 1.?Right corneal abrasion Rx [...] fine, 1 drop(s) Eye-Right QID,x4 days, Pharmacy: [facility] [Not filled] ofloxacin ophthalmic(ofloxacin 0.3% ophthalmic solution), 1 drop(s), Eye-Right, QID, X 5 days, # 5 mL, 0 total refill(s), Acute, 1 drop(s) Eye-Right QID,x5 days, Pharmacy: [facility] [Not filled] For PRAP Disposition please [...] known to increase bleeding. -pt to call [phone] to schedule a time convenient for him [...] by: An ear, nose, and throat specialist (bull riveter or ENT specialist). A specialist in hearing problems (manager strategic alliances). Noise damage is the most preventable cause [...] noisy environment, such as: ? Using a quality assurance representative or leaf blower. ? Shooting firearms. ? [...] for Disease Control and Prevention: www.cdc.gov National Ronald on Deafness and Other Communication Disorders: www.nidcd.nih.gov [...] 07/21/2018 Document Revised: 07/21/2018 Document Reviewed: 07/21/2018 [employer] Interactive Patient Education ? 2019 [employer] Extracted from:Title: Office Clinic Note Author: JABARI BRUNSON Date: 06/24/21 1.?Illness ?Patient presented to the respiratory clinic for COVID testing (either through assigned primary care clinic, [facility], 05/01 nurse access line, or self-referral). Pt met criteria for drive up testing (no emergent/severe/worrisome symptoms based on triage protocol), so no htle-be-lrma assessment was completed. COVID-19 PCR collected per recommendations/provider discretion. [facility] SARS-CoV-2 Lab Processing form completed and submitted with specimen. The patient was screened by [facility] pharmacy technician inpatient prior to discharge for tracking and recommendations [...] from:Title: Eye Care Office Visit Note Author: WILMAROLVIN Hao, OD Date: 05/01/21 1.?Internal hordeolum of left [...] in left eye twice daily, Pharmacy: [facility] [External Rx] Ophthalmological [place] X[place] [address] ? Extracted from:Title: PRK POM3 Author: LUZ ELENA SANCHEZ, OD Date: 02/08/21 RTC- for 6mo F/U Extracted from:Title: PRK POM1 Author: LUZ ELENA SANCHEZ, OD Date: 12/06/20 RTC- for 3mo F/U Extracted from:Title: PRK POD6 Author: LUZ ELENA SANCHEZ, OD Date: 11/06/20 RTC - for 1mo F/U Extracted from:Title: [facility] Health Medical Surveillance Exam Author: SHAQ ALANIS MD Date: 05/28/20 EXAM, FORMAL OCCUPATIONAL HEALTH PROGRAM INCLUDING HEARING CONSERVATION PROGRAM, PERIODIC FOR CONTINUED SURVEILLANCE FOR OCCUPATIONAL WORKPLACE EXPOSURE Ordered: Pure Tone Audiometry Air Only 00194 ? Member has negative replies on all [...] evaluation.? Diagnostic Tests PendingAP Surgical Pathology 09/19/21 08/13/2024 0006H[facility] Functional Status Combined list of recent functional and cognitive assessments recorded at Department of Defense and Veterans Affairs ([place]).VA Functional [place] Measurement (FIM) Scale: 1 = Total Assistance (Subject = 0% +), 2 = Maximal Assistance (Subject = 25% +), 3 = Moderate Assistance (Subject = 50% +), 4 = Minimal Assistance (Subject = 75% +), 5 = Supervision, 6 = Modified [place] (Device), 7 = Complete [place] (Timely, Safely). Assessment Date/Time Source Assessment Type Assessment Skill Assessment Score Assessment Details No data available for this section Continuity of Care Document Created on: August 13, 2024 Franky LARA JR : 2000 Sex: Male Author Name [facility] Organization [facility] Care Team Providers Care Acid Patroller Name Role Phone [facility] Unavailable Unavailable Problems Combined list of problems from Department of Defense and Veterans Affairs facilities. It does not include entries that were removed or entered in error. 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 4 Diagnosis 0094C[facility] Claustrophobia Active Condition [facility] Interrupted sleep Active Condition 309 C-AF-C-66 [facility] Nightmares Active Condition 031C-AF-C [facility] pain of left knee Active Condition 0094 C[facility] Pain of right knee Active Condition 009 4C- [facility] Group Screening due Active Condition Unknown Organization Sleep deprivation Active Condition 0006 C-[facility] Tinnitus Active Condition - Medical Group Vertigo Active Condition - Medical Group Allergies, Adverse Reactions, Alerts Combined list of allergies from Department of Defense and Veterans Affairs facilities. It does not include entries that were removed or entered in error. Substance Category Reaction Severity Reaction type Status Date Reported Comments Source No Known Allergies Drug allergy (disorder) active 08/24/2022 DoD Immunizations Combined list of available immunizations from the Department of Defense and Veterans Affairs facilities. Immunization Series Date Given Administered By Site Reaction Lot Number CVX Code Drug Founder And Chief Executive Officer Status Comments Source influenza virus vaccine, inactivated 2022 ESTEPHANIA Do Shoul reina, left (delt oid) [id number] [employer] complet ed influenza virus vaccine, inactivat ed 04/14/23 Given Medical Group influenza virus vaccine, inactivated 2021 REBEKAHLISA WHITE Shoul reina, left (delt oid) [id number] [employer] complet ed influenza virus vaccine, inactivat ed 03/13/22 Given 0006C-[facility] influenza virus vaccine, inactivated 2020 NELA Rojas Shoul reina, left (delt oid) [id number] 158 [employer] complet ed influenza virus vaccine, inactivat ed 03/29/21 Given 0006C[facility], injectable, quadrivalent 2020 MARIANN UPTON [id number] 158 complet ed Result Comment: Route: Unknown Manufactu rer: OT (SEQ) - Medical Group COVID Vaccine Pfizer 2020 RON YUN Shoul reina, right (delt oid) [id number] PFI[employer]ER complet ed COVID Vaccine Pfizer 10/16/20 Given 0006C-[facility] COVID Vaccine Pfizer 04/13/ 2021 KAITLYNRALEXA NDER Shoul reina, right (delt oid) [id number] [employer] complet ed COVID Vaccine Pfizer 09/25/20 Given 0006C-J oint Base [employer] [facility] influenza, injectable, quadrivalent 2019 MARIANN UPTON [id number] 158 complet ed Result Comment: Route: Unknown Manufactu rer: OT (SEQ) 0094C[facility] influenza, injectable, quadrivalent- pf 2018 [id number] 150 Se[employer] complet ed influenza , injectabl e, quadrival ent-pf 04/29/19 Given Ambulat ory Pharmac y Influenza, injectable, quadrivalent, preservative free 2 2018 [id number] 150 Seqirus (SEQ) complet ed Influenza , injectabl e, quadrival ent, preservat leah free DoD influenza, injectable, quadrivalent- pf 2018 [id number] 150 GlaxoSmithKli ne complet ed influenza , injectabl e, quadrival ent-pf 08/12/18 Given Ambulat ory Pharmac y tetanus, diphtheria, acellular pertu is 2018 [id number] 115 GlaxoSmithKli ne complet ed tetanus, diphtheri a, acellular pertussis 08/12/18 Given Ambulat ory Pharmac y meningococcal A,C,Y,W-135 (MCV4P) 2018 [id number] 114 sanofi pasteur complet ed meningoco ccal A,C,Y,W-1 35 (MCV4P) 08/12/18 Given Ambulat ory Pharmac y adenovirus vaccine, live 2018 [id number] Teva Pharmaceutica complet ed adenoviru s vaccine, live 08/12/18 Given Ambulat ory Pharmac y poliovirus vaccine, inactivated 2018 [id number] sanofi pasteur complet ed polioviru s vaccine, inactivat ed 08/12/18 Given Ambulat ory Pharmac y poliovirus vaccine, inactivated 1 2018 [id number] 10 Sanofi Pasteur (PMC) complet ed polioviru s vaccine, inactivat ed DoD meningococcal polysaccharid e (groups A, C, Y and W-135) diphtheria toxoid conjugate vaccine (MCV4P) 1 2018 [id number] Sanofi Pasteur (PMC) complet ed meningoco ccal polysacch aride (groups A, C, Y and W-135) diphtheri a toxoid conjugate vaccine (MCV4P) DoD tetanus toxoid, reduced diphtheria toxoid, and acellular pertu is vaccine, adsorbed 1 2018 [id number] 115 [facility] (SKB) complet ed tetanus toxoid, reduced diphtheri a toxoid, and acellular pertussis vaccine, adsorbed DoD Adenovirus, type 4 and type 7, live, oral 1 2018 [id number] 143 [employer] ([facility]) complet ed Adenoviru s, type 4 and type 7, live, oral DoD Influenza, injectable, quadrivalent, preservative free 1 2018 [id number] 150 [facility] (SKB) complet ed Influenza , injectabl e, [...] Prevention' s HIV diagnostic algorithm. Refer to [facility] Lab Guide for additional information : [email or web address]://[employer]. Kinetic.[facility]/ kj/kx5/EPIL ab/Pages/la b_guide.asp x Testing performed by Jhoana talavera [facility] Miscella neous Sendouts Repository Sample Received (11/17/22 8:54 AM) 11/17 N [facility] AP Specimen s Pathology Report.LC Comment 09/20 Result Comment: . 01 Material submitted: abdomen - RIGHT LOWER ABDOMEN . 01 Clinical history: CLINICAL: 21 Y/O MALE WITH LIFELONG... PRE-OP: CONGENITAL VUS VS TRAUMAT... POST-OP: GINA . 01 * Diagnosis: Right Lower Abdomen, Biopsy: Irritated compound melanocytic nevus. MRV 09/24/2021 1150 Local . 01 Electronica lly signed: Domi España MD, Dermatopath ologist NPI- [id number] . 01 Gross description : RIGHT LOWER ABDOMEN: Received in formalin is 1 piece of SEGMENT OF SKIN measuring 0.9 x 0.6 x 0.3 cm which is inked trisected and submitted in toto in 1 cassette. /SADIA 09/23/2021 2325 Local . 01 Pathologist provided ICD-10: D22.9 . 01 CPT 125692 Performed At: 01 [facility] Cytology [address] [place] [address] [address] [place], [place] [id number] Servando Marley MD Ph:[phone] 0006A-[facility] Disease SARS-CoV-2 PCR Positive 4 *ABN* (06/24/21 10:03 AM) 06/24 A Interpretiv e Data: Normal Value: NEGATIVE for all targets POSITIVE: Specified target viral RNA detected NEGATIVE: Specified target viral RNA NOT detected Interpretat ion: The UltiZen Xpert Xpress SARS-CoV-2/ Flu/RSV test is a [...] and/or epidemiolog ical information . 0006A-[facility]x nt [facility] Disease Reason for Test? Screenin g (06/24/21 10:03 AM) 06/24 N 0006A-Alyx nt [facility] Disease HIV-1/O/2. EPI NON-REAC TIVE 08/29 Result [...] Prevention' s HIV diagnostic algorithm. Refer to [facility] Lab Guide for additional information : [email or web address] .[facility]/k j/kx5/Aron graham/Pages/lab _guide.aspx Testing performed by Jhoana rodriguez. Performed by: Epidemiolog y Laboratory Service [facility] [address] [place] [phone] [facility] Vital Signs Combined list of inpatient and outpatient Vital Signs from Department of Defense and Veterans Affairs, ranging from 12 months to all on record, depending upon the facility. Vital Sign Value Date Comments Source BP Site Right arm 03/03/2023 13:27:[address] [place] [address] Temperature Oral 36.9 [place] 03/03/2023 13:27:[address] [place] [address] Respiratory Rate 16 br/min 03/03/2023 13:27:[address] [place] [address] Blood Pressure Manual Automatic 03/03/2023 13:27:[address] [place] [address] Mean Arterial Pressure, Calc 85 mm[Hg] 03/03/2023 13:27:[address] [place] [address] Systolic Blood Pressure 108 mm[Hg] 03/03/20 23 13:27:[address] [place] [address] Diastolic Blood Pressure 73 mm[Hg] 023 13:27:[address] [place] [address] Peripheral Pulse Rate 83 bpm 03/03/2023 13:27:[address] [place] [address] Temperature Temporal Artery 36.3 [place] 01/16/2021 01:35:00 0006A[facility] Blood Pressure Manual Automatic 05/28/2020 18:31:[facility] Right arm 05/28/2020 18:31:00 [facility] Temperature Temporal Artery 36.3 [place] 11/20/2020 15:10:00 [facility] Blood Pressure Manual Automatic 04/08/2021 17:43:00 [facility] BP Site Right arm 04/08/2021 17:43:[address] [place] [address] Respiratory Rate 16 br/min 04/08/2021 17:43:00 [facility] Systolic Blood Pressure 100 mm[Hg] 04/08/20 17:43:00 [facility] Diastolic Blood Pressure 63 mm[Hg] 021 17:43:[address] [place] [address] Mean Arterial Pressure, Calc 75 mm[Hg] 04/08/2021 17:43:[address] [place] [address] Peripheral Pulse Rate 76 bpm 04/08/2021 17:43:00 [facility] Peripheral Pulse Rate 71 bpm 08/26/2023 19:22:00 [facility] Mean Arterial Pressure, Calc 83 mm[Hg] 08/26/2023 19:22:00 [facility] Group Blood Pressure Manual Automatic 08/26/2023 19:22:00 [facility] BP Site Right arm 08/26/2023 19:22:00 [facility] Respiratory Rate 16 br/min 08/26/2023 19:22:00 0094C[facility] Group Temperature Oral 37.2 [place] 08/26/2023 19:22:00 [facility] Systolic Blood Pressure 104 mm[Hg] 08/26/19 24 19:22:00 0094[facility] Diastolic Blood Pressure 72 mm[Hg] 024 19:22:00 [facility] Systolic Blood Pressure 104 mm[Hg] 02/05/20 15:57:00 [facility] Diastolic Blood Pressure 69 mm[Hg] 021 15:57:00 [facility] Mean Arterial Pressure, Calc 81 mm[Hg] 02/04/2021 15:57:00 [facility] Peripheral Pulse Rate 75 bpm 02/04/2021 15:57:00 [facility] Respiratory Rate 14 br/min 02/04/2021 15:57:00 [facility] BP Site Right arm 02/04/2021 15:57:00 [facility] Blood Pressure Manual Automatic 02/04/2021 15:57:00 [facility] Temperature Oral 36.6 [place] 06/23/2022 16:31:00 0094[facility] Group Respiratory Rate 16 br/min 06/23/2022 16:31:00 [facility] Peripheral Pulse Rate 68 bpm 06/23/2022 16:31:00 0094[facility] Mean Arterial Pressure, Calc 83 mm[Hg] 06/23/2022 16:31:00 0094[facility] Systolic Blood Pressure 108 mm[Hg] 06/23/19 16:31:00 0094[facility] Diastolic Blood Pressure 71 mm[Hg] 023 16:31:00 0094[facility] Blood Pressure Manual Automatic 06/23/2022 16:31:00 [facility] BP Site Left arm 06/23/2022 16:31:00 [facility] Temperature Temporal Artery 36.6 [place] 05/07/2021 10:26:00 [facility] Systolic Blood Pressure 106 mm[Hg] 05/07/20 21 10:26:00 [facility] Diastolic Blood Pressure 67 mm[Hg] 021 10:26:00 [facility] Peripheral Pulse Rate 64 bpm 05/07/2021 10:26:00 [facility] Respiratory Rate 14 br/min 05/07/2021 10:26:00 0006A-[facility] Peripheral Pulse Rate 60 bpm 09/15/2022 14:00:00 [facility] Mean Arterial Pressure, Calc 73 mm[Hg] 09/15/2022 14:00:00 009-[facility] Group Respiratory Rate 16 br/min 09/15/2022 14:00:00 009-[facility] Temperature Oral 36.5 [place] 09/15/2022 14:00:00 0094[facility] BP Site Right arm 09/15/2022 14:00:00 009-[facility] Blood Pressure Manual Automatic 09/15/2022 14:00:00 009-[facility] Group Systolic Blood Pressure 94 mm[Hg] 09/16/19 23 14:00:00 009-[facility] Diastolic Blood Pressure 63 mm[Hg] 023 14:00:00 009-[facility] Respiratory Rate 14 br/min 10/14/2023 15:43:00 009-[facility] Temperature Oral 37.0 [place] 10/14/2023 15:43:00 009-[facility] Blood Pressure Manual Automatic 10/14/2023 15:43:00 009-[facility] BP Site Left arm 10/14/2023 15:43:00 009-[facility] Systolic Blood Pressure 116 mm[Hg] 10/14/19 24 15:43:00 009-[facility] Diastolic Blood Pressure 81 mm[Hg] 024 15:43:00 009-[facility] Peripheral Pulse Rate 83 bpm 10/14/2023 15:43:00 [facility] Mean Arterial Pressure, Calc 93 mm[Hg] 10/14/2023 15:43:00 009-[facility] Systolic Blood Pressure 107 mm[Hg] 05/22/20 22 15:54:00 009-[facility] Group Diastolic Blood Pressure 71 mm[Hg] 022 15:54:00 009-[facility] Group Temperature Oral 36.7 [place] 05/22/2022 15:54:00 0094[facility] BP Site Left arm 05/22/2022 15:54:00 0094[facility] Blood Pressure Manual Automatic 05/22/2022 15:54:00 [facility] Mean Arterial Pressure, Calc 83 mm[Hg] 05/22/2022 15:54:00 0094C[facility] Peripheral Pulse Rate 75 bpm 05/22/2022 15:54:00 0094C[facility] Respiratory Rate 14 br/min 05/22/2022 15:54:00 00[facility] Mean Arterial Pressure, Calc 89 mm[Hg] 11/21/2020 22:09:[address] [place] [address] Temperature Oral 36.5 [place] 11/21/2020 22:09:[address] [place] [address] Systolic Blood Pressure Sitting 118 mm[Hg] 11/21/2020 22:09:[address] [place] [address] Diastolic Blood Pressure Sitting 73 mm[Hg] 11/21/2020 22:09:[address] [place] [address] Systolic Blood Pressure Supine 118 mm[Hg] 11/21/2020 22:09:[address] [place] [address] Diastolic Blood Pressure Supine 77 mm[Hg] 11/21/2020 22:09:[address] [place] [address] Systolic Blood Pressure Standing 120 mm[Hg] 11/21/2020 22:09:[address] [place] [address] Diastolic Blood Pressure Standing 79 mm[Hg] 11/21/2020 22:09:[address] [place] [address] Systolic Blood Pressure 100 mm[Hg] 01/24/20 21 16:52:[address] [place] [address] Diastolic Blood Pressure 58 mm[Hg] 021 16:52:[address] [place] [address] Blood Pressure Manual Automatic 01/23/2021 16:52:[address] [place] [address] BP Site Right arm 01/23/2021 16:52:[address] [place] [address] Respiratory Rate 12 br/min 01/23/2021 16:52:[address] [place] [address] Peripheral Pulse Rate 77 bpm 01/23/2021 16:52:[address] [place] [address] Mean Arterial Pressure, Calc 72 mm[Hg] 01/23/2021 16:52:00 0006C[facility] Encounters Combined list of: 1) Encounters from Department of Veterans Affairs facilities going backup to the last 18 months, not all VA inpatient encounters are included; 2) Encounters from the Department of Defense facilities going backup to 280 months. Location Location Details Encounter Type Encounter Number Reason For Visit Attending Provider ADM Date DC Date Status Disposition [place] [address](Opt ometry Clinic BMT [facility]) OUTPATIENT [id number] CAROLINE FOOTE 08/16 Released w/o Limitations [facility] [place] [address](O ptometr y Clinic [facility]MT [facility]) [place] [address](Hea ring Conservat ion, BMT) OUTPATIENT [id number] MANDO BAUM 08/16 Released w/o Limitations [facility] [place] [address](H earing Conserv ation, BMT) [place] [address](Tra [facility]) OUTPATIENT [id number] Notes Entered by: NAHUM ISAACS 18 Aug 2018 1337 ------- ------- ------- ------- -- Blood in stool ZAFAR TORRES Crystal 08/18 Released w/o Limitations [facility] [place] [address]([facility] [place] [place] [address]([facility]) OUTPATIENT [id number] Notes Entered by: Sangita ESTEBAN 26 Aug 2018 1055 ------- ------- ------- ------- -- *Abdomi nal Discomf ort* JUDY GARCIA V 08/26 Released w/o Limitations [facility] [place] [place] [address](T [facility] Ajith Banegas) [place] [address]([facility] [place]) OUTPATIENT [id number] fiber nutriti on VERN TEJEDA 08/27 Released w/o Limitations [facility] [place] [address]([facility] [place] [place] [place] OUT[facility] [id number] OSS/ALA SKA/AF MUSHTAQ STARR L 10/29 Released w/o Limitations [place], [place]([facility]) [place]([facility]) OUTPATIENT [id number] INDOC JORGE KATE Donell 12/06 Released w/o Limitations [place](Occ upational Health) OUTPATIENT [id number] ASM OHA (AUDIO) RAFA TORRES 05/26 Released w/o Limitations [employer](O ccupati onal Health) [facility](BOM C 1) OUTPATIENT [id number] Notes Entered by: RASHMI WOOD 27 May 2019 1326 ------- ------- ------- ------- -- DENTAL PHA/MHA ZENOBIA SINGER 05/27 Released w/o Limitations [facility](B [facility] 1) [facility] [facility](Opt ometry Clinic) OUTPATIENT [id number] Annual exam JUAN ALBERTO LOVETT 06/13 Released w/o Limitations [facility] [facility](O ptometr y Clinic) [facility] [facility](Opt ometry Clinic) OUTPATIENT [id number] CL F/U JUAN ALBERTO LOVETT 11/22 Released w/o Limitations [facility] [facility](O ptometr y Clinic) [facility] Between Visit [id number] 09/13 Discharge Disposition: Home or Self Care 4C- Medical Group [facility] Clinic [id number] EXAM, FORMAL OCCUPAT IONAL HEALTH PROGRAM INCLUDI NG HEARING CONSERV ATION PROGRAM , PERIODI C FOR CONTINU ED 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 CHLOE SJSERINAS 10/13 Discharge Disposition: Home or Self Care - Medical Group 0094C[facility] Dental [id number] JUVE ESTEVES 10/18 Discharge Disposition: Home or Self Care 4C-[facility] - [facility] Between Visit [id number] 05/25 Discharge Disposition: Home or Self Care 309C-A F-C-66t h [facility] - C- [facility] Clinic [id number] Nightma re disorde r,Insom kristen, unspeci fied,EX AM/ASSE SSMENT, 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 Procedure Procedure Type Code Date Perfomer Comments Sourc e WTEx4 0006C[facility] - [facility] MEDICAL NUTRITION THERAPY; INITIAL ASSESSMENT AND INTERVENTION, INDIVIDUAL, [id number] WITH THE PATIENT, EACH 15 MINUTES [facility] PURE TONE AUDIOMETRY (THRESHOLD); AIR ONLY [facility] SCREENING TEST OF VISUAL ACUITY, QUANTITATIVE, BILATERAL [facility] PATIENT EDUCATION, NOT OTHERWISE CLASSIFIED, NON-PHYSICIAN PROVIDER, GROUP, PER SESSION [facility] OPHTHALMOLOGICAL SERVICES: MEDICAL EXAMINATION AND EVALUATION, WITH INITIATION OR CONTINUATION OF DIAGNOSTIC AND TREATMENT PROGRAM; INTERMEDIATE, ESTABLISHED PATIENT [facility] FITTING OF SPECTACLES, EXCEPT FOR APHAKIA; MONOFOCAL [facility] ADMINISTRATION OF PATIENT-FOCUSED HEALTH RISK ASSESSMENT INSTRUMENT (EG, HEALTH HAZARD APPRAISAL) WITH SCORING AND DOCUMENTATION, PER STANDARDIZED INSTRUMENT [facility] SCREENING TEST OF VISUAL ACUITY, QUANTITATIVE, BILATERAL 019 [facility] Medical Nutrition Therapy Initial A e ment And Intervention Each 15 Minutes Medical Nutrition Therapy Initial Assessment And Intervention Each 15 Minutes [id number] VERN TEJEDA [facility] Threshold Audiogram (Pure Tone) Threshold Audiogram (Pure Tone) [id number] MANDO BAUM [facility] Spectacles Services Fitting Monofocal Except For Aphakia Spectacles Services Fitting Monofocal Except For Aphakia [id number] 019 MARYAM SCHULTZ Screening Test Of Visual Acuity, Quantitative, Bilateral Screening Test Of Visual Acuity, Quantitative, Bilateral [id number] 019 MARYAM SCHULTZ [facility] Screening Test Of Visual Acuity, Quantitative, Bilateral Screening Test Of Visual Acuity, Quantitative, Bilateral 88914 RAFA TORRES [facility] Preventive Medicine Administration Of Health Risk Questionnaire Patient-Focused Preventive Medicine Administration Of Health Risk Questionnaire Patient-Focused 10295 ZENOBIA SINGER [facility] Ophthalmological New Patient Start Comprehensive Care Ophthalmological New Patient Start Comprehensive Care [address]263 JUAN ALBERTO LOVETT Determination Of Refractive State Determination Of Refractive State [address]78 JUAN ALBERTO LOVETT Spectacles Services Fitting Monofocal Except For Aphakia Spectacles Services Fitting Monofocal Except For Aphakia 45326 JUAN ALBERTO LOVETT Prescription And Fitting Bilateral Corneal Lenses (Not For Aphakia) Prescription And Fitting Bilateral Corneal Lenses (Not For Aphakia) 39012 JUAN ALBERTO LOVETT Ophthalmological Prior Patient Start Intermediate Level Care Ophthalmological Prior Patient Start Intermediate Level Care [address]0464 JUAN ALBERTO LOVETT Patient education, not otherwise cla ified, non-physician provider, group, per se KATE Christie [facility] Social History Combined list of available smoking, tobacco, and other social history from Department of Defense and Veterans Affairs facilities. Social History Type Response Date Comment Sour e Sex Representation Male 01/18/2020 Unknow n Organization Tobacco Cigarette use: Never-cigarette user. Other Tobacco use: Never-other tobacco user (not cigarettes). Ambulatory Pharmacy Sexual Orientation Ambula tory Pharmacy Gender identity Ambulator y Pharmacy This section is an empty social history section. [facility] Assessment and Plan Combined list of future care activities from Department of Defense and Veterans Affairs facilities (e.g., assessment and plan notes, appointments, orders, and referrals). Additional future care activities may be listed in the Plan of Care section. 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 Demarco Rey CTR?BULL DRIVER-C [facility] Provider Flight Medicine? ?[employer] [place], [place]??[address] [facility] [phone] ? Extracted from:Title: Occupational Health Exam Author: [...] patients for medical clearance. ?That would be through?[facility].?Will defer to for further guidance, but discussed should not be an issue as pt is in good health, has no new medical concerns, and is PCSing to [facility] location. At least med clearance, only thing that was flagged was concerning nightmares, reviewed and cleared by [facility] d/t PCS stress. Pt to f/u with PCM prn. ? Provided patient?a [employer] [facility]?clinic plan of care sheet with detailed instructions [...] ? Svetlana Ricks USA[employer], PA-C Staff Physician Java Groovy Developer, [facility] ([facility]) 5 OMRS, [facility] [address] [place] [address], [facility] ? ? Total Time:?20?minutes ? Total time includes medical decision making and preparation before the visit, the time spent examining the patient, documentation, and any post-visit care coordination?conducted on the day of the visit.? Some parts of this note were generated using voice-recognition software. Despite real-time proof-reading, truck loader errors might still be present. Please call [...] in hearing?[ ] N/A ( DD FORM 6350/ Non-Hearing??Conservation ) [ ] Masking Required ? [...] 600). ??[ ] Member completed AF Form 2920 and referred to [facility] for ear evaluation. ??[ ] Member was [...] health appointment. ? ? ? Provided patient?a [employer] [facility]?clinic plan of care sheet with detailed instructions [...] ? Svetlana Ricks [employer], PA-C Staff Physician Java Groovy Developer, [facility] ([facility]) 5 [facility], [facility] [address] [place] [address], [id number] ? ? Total Time:?15?minutes ? Total time includes medical decision making and preparation before the visit, the time spent examining the patient, documentation, and any post-visit care coordination?conducted on the day of the visit.? Some parts of this note were generated using voice-recognition software. Despite real-time proof-reading, truck loader errors might still be present. Please call [...] walking Resolved. As above. ? Provided patient?a [facility]?clinic plan of care sheet with detailed [...] ? Svetlana Ricks [employer], PA-C Staff Physician Java Groovy Developer, [facility] ([facility]) 5 [facility], [facility] [address] [place] [address], [id number] ? ? Total Time:?20?minutes ? Total time includes medical decision making and preparation before the visit, the time spent examining the patient, documentation, and any post-visit care coordination?conducted on the day of the visit.? Some parts of this note were generated using voice-recognition software. Despite real-time proof-reading, truck loader errors might still be present. Please call if there are questions.? 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 ? MHA [...] Maintenance, 1 cap(s) Oral Daily,PRN:pain (moderate), Pharmacy: [facility] [Not filled] Referral Request 2.0 ? 2.?pain of left knee Not demonstrated today, subacute on chronic?per?HPI ? Unremarkable examination today ? Feldene as needed for pain and inflammation Formal physical therapy referral has been placed ? Ordered: piroxicam(Feldene 20 mg oral capsule), 1 cap(s), Oral, Daily, PRN pain (moderate), # 30 cap(s), 0 total refill(s), Maintenance, 1 cap(s) Oral Daily,PRN:pain (moderate), Pharmacy: [facility] [Not filled] Referral Request 2.0 ? [...] if any issues with any referral that [facility] cannot resolve. ? A copy of ambulatory [...] N ? ? Maj HOPKINS USAF, ALEXEY? [facility] Medicine [facility] ([facility]) Staff PA 5 [facility], [facility]? [address] [place] [address]? [place] [address] ? 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 Prev med counseling? [...] ] Negative STS?[ ?] ?N/A (DD Form 0915 / Non-Hearing Conservation) ? 16.???IAW MONIQUE [phone], Attachment 3, member has a hearing profile of: [X ] H-1?[ ] H-2?[ ] H-3?[ ?] ?H-4 ? 17.???Based on member's audiogram results, the following actions have been taken: ??[ ?] Member scheduled for a 14-hour noise-free follow up within 30 calendar days (see STS Follow-Up SF 600). ??[ ?] Member completed AF Form 7612 and referred to [facility] for ear evaluation. ??[ ] Member was [...] from:Title: Eye Care Optometry Acute Author: JAIME MUSE Vandana, OD Date: 07/11/22 1.?Right corneal abrasion Rx [...] fine, 1 drop(s) Eye-Right QID,x4 days, Pharmacy: [facility] [Not filled] ofloxacin ophthalmic(ofloxacin 0.3% ophthalmic solution), 1 drop(s), Eye-Right, QID, X 5 days, # 5 mL, 0 total refill(s), Acute, 1 drop(s) Eye-Right QID,x5 days, Pharmacy: [facility] [Not filled] For PRAP Disposition please [...] known to increase bleeding. -pt to call [phone] to schedule a time convenient for him [...] by: An ear, nose, and throat specialist (bull riveter or ENT specialist). A specialist in hearing problems (manager strategic alliances). Noise damage is the most preventable cause [...] noisy environment, such as: ? Using a quality assurance representative or leaf blower. ? Shooting firearms. ? [...] for Disease Control and Prevention: www.cdc.gov National Ronald on Deafness and Other Communication Disorders: www.nidcd.nih.gov [...] 07/21/2018 Document Revised: 07/21/2018 Document Reviewed: 07/21/2018 [employer] Interactive Patient Education ? 2019 [employer] Extracted from:Title: Office Clinic Note Author: JABARI BRUNSON Date: 06/24/21 1.?Illness ?Patient presented to the respiratory clinic for COVID testing (either through assigned primary care clinic, [facility], [facility], 05/01 nurse access line, or self-referral). Pt met criteria for drive up testing (no emergent/severe/worrisome symptoms based on triage protocol), so no uyqm-oz-iecb assessment was completed. COVID-19 PCR collected per recommendations/provider discretion. ER SARS-CoV-2 Lab Processing form completed and submitted with specimen. The patient was screened by Public [facility] pharmacy technician inpatient prior to discharge for tracking and recommendations [...] in left eye twice daily, Pharmacy: [id number] [External Rx] Ophthalmological Medical Xm&[place] [id number] ? Extracted from:Title: PRK POM3 Author: LUZ ELENA SANCHEZ, OD Date: 02/08/21 RTC- for 6mo F/U Extracted from:Title: PRK POM1 Author: LUZ ELENA SANCHEZ, OD Date: 12/06/20 RTC- for 3mo F/U Extracted from:Title: PRK POD6 Author: LUZ ELENA SANCHEZ, OD Date: 11/06/20 RTC - for 1mo F/U Extracted from:Title: [facility] Medical Surveillance Exam Author: SHAQ ALANIS MD Date: 05/28/20 EXAM, FORMAL OCCUPATIONAL HEALTH PROGRAM INCLUDING HEARING CONSERVATION PROGRAM, PERIODIC FOR CONTINUED SURVEILLANCE FOR OCCUPATIONAL WORKPLACE EXPOSURE Ordered: Pure Tone Audiometry Air Only [id number] ? Member has negative replies on all [...] evaluation.? 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 Demarco Rey CTR?BULL DRIVER-C [facility] Provider Flight Medicine? ?[employer] [place]??[address] office- [phone] ? Extracted from:Title: Occupational Health Exam Author: [...] patients for medical clearance. ?That would be through?[facility].?Will defer to for further guidance, but discussed should not be an issue as pt is in good health, has no new medical concerns, and is PCSing to [facility] location. At least med clearance, only thing that was flagged was concerning nightmares, reviewed and cleared by [facility] d/t PCS stress. Pt to f/u with PCM prn. ? Provided patient?a [employer] [facility]?clinic plan of care sheet with detailed instructions [...] ? Svetlana Ricks [employer], PA-C Staff Physician Java Groovy Developer, [facility] Medicine [facility] ([facility]) 5 [facility], [facility] [address], [place], [address] ? ?
[2024-08-13 13:39] LABS: Basophils Percent Auto 0.7 % (0-2); Eosinophils Absolute Auto 0.1 X10*3/uL (0.0-0.4); Eosinophils Percent Auto 2.1 % (0-4); Hematocrit 41.9 % (42.0-52.0); Hemoglobin 14.6 g/dl (14.0-18.0); Imm Gran Abs Auto 0.01 X10*3/uL (0.00-0.03); Imm Gran Pct Auto 0.2 % (0.0-0.4); Lymphocytes Absolute Auto 1.4 X10*3/uL (1.2-4.9); Lymphocytes Percent Auto 34.2 % (20-40); MANUAL DIFF FLAG NO; Mean Corpuscular HGB Conc 34.8 g/dl (31.0-36.0); Mean Corpuscular Hemoglobin 32.4 pg (27.0-33.0); Mean Corpuscular Volume 92.9 fL (80.0-98.0); Mean Platelet Volume 12.4 fL (9.4-12.4); Monocytes Absolute Auto 0.4 X10*3/uL (0.1-1.2); Monocytes Percent Auto 9.3 % (2-11); Neutrophils Absolute Auto 2.3 x10*3/uL (2.0-8.3); Neutrophils Percent Auto 53.5 % (45-73); Platelet Count 161 X10*3/uL (160-400); Red Blood Count 4.51 X10*6/uL (4.60-5.80); Red Cell Distribution Width 11.8 % (11.0-16.0); White Blood Count 4.2 X10*3/uL (4.8-10.8)
== END 2024-08-13 11:16 | disposition home or self-care (01) ==
LOC: HO.HMGCLDS 11:15
PROVIDERS: PCP Nurse Practitioner Family; Visit Provider Nurse Practitioner Family
DX: D72.819 Decreased white blood cell count, unspecified (principal)
CPT/HCPCS: 36415; 85025

== ENCOUNTER 2024-08-24 07:26 | Outpatient (REF) | payer OTHER, SELFPAY ==
[2024-08-24 10:57] LABS: MANUAL DIFF FLAG NO
[2024-08-24 11:08] LABS: Basophils Percent Auto 0.7 % (0-2); Eosinophils Absolute Auto 0.1 X10*3/uL (0.0-0.4); Eosinophils Percent Auto 2.1 % (0-4); Hematocrit 41.5 % (42.0-52.0); Hemoglobin 14.5 g/dl (14.0-18.0); Imm Gran Abs Auto 0.02 X10*3/uL (0.00-0.03); Imm Gran Pct Auto 0.5 % (0.0-0.4); Lymphocytes Absolute Auto 1.5 X10*3/uL (1.2-4.9); Lymphocytes Percent Auto 33.2 % (20-40); Mean Corpuscular HGB Conc 34.9 g/dl (31.0-36.0); Mean Corpuscular Hemoglobin 32.5 pg (27.0-33.0); Monocytes Absolute Auto 0.4 X10*3/uL (0.1-1.2); Monocytes Percent Auto 8.9 % (2-11); Neutrophils Absolute Auto 2.4 x10*3/uL (2.0-8.3); Neutrophils Percent Auto 54.6 % (45-73); Platelet Count 154 X10*3/uL (160-400); Red Blood Count 4.46 X10*6/uL (4.60-5.80); White Blood Count 4.4 X10*3/uL (4.8-10.8)
== END 2024-08-24 07:27 | disposition home or self-care (01) ==
LOC: HO.HMGCLDS 07:26
PROVIDERS: PCP Nurse Practitioner Family; Visit Provider Nurse Practitioner Family
DX: D72.819 Decreased white blood cell count, unspecified (principal)
CPT/HCPCS: 36415; 85025

== ENCOUNTER 2024-09-01 07:53 | Outpatient (AMB) | payer OTHER, SELFPAY ==
--- NOTE | 2024-09-01 07:22 | MHC.PC.OV ---
Intake Visit Reasons: lab review Allergies No Known Allergies Allergy (Verified 09/01/24 07:23) Medication List - Last Reconciled 09/01/24 by ANGELINA Loyola No Known Home Meds Tobacco use date assessed: 08/10/24 Dental Screening Dental Screen Date: 08/10/24 HPI lab review HPI Details History of Present Illness The patient is a 24-year-old male presenting for monitoring of leukopenia. Initial findings from a CBC conducted in July indicated leukopenia with a white blood cell count of 3.8, devoid of accompanying symptoms such as pain, fever, chills, blurred vision, or headaches. Follow-up evaluations demonstrated an upward trend, with a more recent count noted at 4.4. Additionally, starting earlier this week, there is an accompanying mild constipation, coinciding with a viral illness that could be influenza, and a gastrointestinal virus. No chest pain, shortness of breath, or blood in the stool has been reported. The patient has been advised to increase fluid intake and dietary fiber to alleviate constipation. Future monitoring, including further laboratory tests, will proceed once symptomatic improvement is achieved. Review of Systems - Constitutional: Denies fever or chills. - Cardiovascular: Denies chest pain. - Respiratory: Denies shortness of breath. - Gastrointestinal: Reports mild constipation; denies abdominal pain or blood in stool. - Neurological: Denies headaches. Plan I have advised postponing any subsequent investigations for leukopenia until the patient has recuperated from his current viral condition. Following his recovery, comprehensive blood tests including CBC, ESR, CRP, and JUVE will be administered to discern any persistent abnormalities. Should the leukopenia continue, a hematology consultation may be necessary. The management for constipation involves increasing fluid consumption and utilizing a fiber supplement, Miralax may also help to alleviate symptoms. Discussion Notes During our discussion, I emphasized the need to monitor the patient's leukopenia, especially in light of the present viral illness. We reviewed that while the trend in the white blood cell count is improving, further investigations are warranted post-recovery to ensure thorough assessment and management of any hematological issues. I explained the risks and potential implications of untreated leukopenia and outlined our approach, which includes re-evaluation with additional blood tests and potentially, a hematology consult if warranted. For constipation, the discussion centered on lifestyle modifications such as increased hydration and dietary fiber, and the use of Miralax. Future follow-up visits will be determined based on his symptomatic improvement and test outcomes, with advisories set in place in case of emergent symptoms. Patient Instructions - Increase fluid intake to help alleviate constipation. - Use Miralax as needed for constipation management. - Wait until symptoms of the flu and possible GI virus are fully resolved before getting further blood tests. - Return for blood work in two weeks after complete recovery from current illness. - Seek medical attention if you experience new or worsening symptoms such as high fever, severe abdominal pain, or other concerning symptoms. -worsening symptoms, ER/urgent care. [facility] Medical History Night terrors Surgical History [place] teeth extracted S/P ASA (advanced surface ablation) surgery PRK (photorefractive keratectomy) Family History Father Diabetes Mother No problems noted. Social History Housing: House Patient Tobacco Use Status: Never used Tobacco e-Cigarette/Vaping Use: Never Used service: Yes Current occupational status: employed Cognitive needs: No Hearing needs: No Vision needs: No Questionnaire Thrive Questionnaire Date Thrive assessed: 08/10/24 KELLY-7 AMB Questionnaire KELLY-7 Date KELLY - 7 assessed: 08/10/24 Source: Developed by Drs. Alcides Herrera, Stephanie Burt, Paul Brunson and colleagues, with an educational cleopatra from [employer]. Physical exam (Primary Care) Tobacco/Smoking Status: Tobacco use Status Tobacco use date assessed 08/10/24 08/10/24 14:18 Patient Tobacco Use Status Never used Tobacco 08/10/24 14:18 e-Cigarette/Vaping Use Never Used 08/10/24 14:18 Thrive Assessment: Date of Thrive Assessment Date Thrive assessed 08/10/24 08/10/24 14:18 Telehealth Telehealth Telehealth Platform: [facility] Location of provider rendering services: practice address Location of patient: address on file Patient Identification confirmed using: Name, : Yes Telehealth method: video Patient verbally consented to billing insurance company: Yes Patient informed of any privacy concerns related to visit: Yes Minutes spent on Phone/Video with Pt.: 15 Coding Level of Care Code Tele Est Pt Level 3 (96645) Diagnoses Leukopenia D72.819 Viral illness B34.9 Assessment & Plan Assessment & Plan (1) Leukopenia: Code(s): D72.819 - Decreased white blood cell count, unspecified Category: Medical (2) Viral illness: Code(s): B34.9 - Viral infection, unspecified Category: Medical Plan . Orders: Orders Erythrocyte Sedimentation Rate Today D72.819 - Decreased white blood cell count, unspecified JUVE Reflex Titer and Pattern Today D72.819 - Decreased white blood cell count, unspecified Complete Blood Count Auto Diff Today D72.819 - Decreased white blood cell count, unspecified C Reactive Protein Today D72.819 - Decreased white blood cell count, unspecified
== END 2024-09-01 08:41 | disposition home or self-care (01) ==
LOC: HO.HMCC 07:53
PROVIDERS: PCP Nurse Practitioner Family; Visit Provider Nurse Practitioner Family
DX: B34.9 Viral infection, unspecified (principal); D72.819 Decreased white blood cell count, unspecified

== ENCOUNTER 2024-09-19 12:05 | Outpatient (REF) | payer OTHER, SELFPAY ==
[2024-09-19 13:05] LABS: MANUAL DIFF FLAG NO
[2024-09-19 13:15] LABS: Basophils Percent Auto 0.6 % (0-2); Eosinophils Absolute Auto 0.1 X10*3/uL (0.0-0.4); Eosinophils Percent Auto 1.9 % (0-4); Hematocrit 44.2 % (42.0-52.0); Hemoglobin 15.9 g/dl (14.0-18.0); Imm Gran Abs Auto 0.02 X10*3/uL (0.00-0.03); Imm Gran Pct Auto 0.4 % (0.0-0.4); Lymphocytes Absolute Auto 1.4 X10*3/uL (1.2-4.9); Lymphocytes Percent Auto 30.4 % (20-40); Mean Corpuscular Hemoglobin 32.7 pg (27.0-33.0); Mean Corpuscular Volume 90.9 fL (80.0-98.0); Mean Platelet Volume 12.3 fL (9.4-12.4); Monocytes Absolute Auto 0.4 X10*3/uL (0.1-1.2); Monocytes Percent Auto 8.4 % (2-11); Neutrophils Absolute Auto 2.7 x10*3/uL (2.0-8.3); Neutrophils Percent Auto 58.3 % (45-73); Platelet Count 189 X10*3/uL (160-400); Red Blood Count 4.86 X10*6/uL (4.60-5.80); Red Cell Distribution Width 11.9 % (11.0-16.0); White Blood Count 4.7 X10*3/uL (4.8-10.8)
[2024-09-19 13:40] LABS: C Reactive Protein < 0.04 mg/dL (< or = 0.50)
[2024-09-19 14:00] LABS: Erythrocyte Sedimentation Rate 1 MM/HR (0-15)
[2024-09-27 11:34] LABS: Anti Nuclear Antibody Screen NEGATIVE (NEGATIVE)
== END 2024-09-19 12:06 | disposition home or self-care (01) ==
LOC: HO.HMGCLDS 12:05
PROVIDERS: PCP Nurse Practitioner Family; Visit Provider Nurse Practitioner Family
DX: D72.819 Decreased white blood cell count, unspecified (principal)
CPT/HCPCS: 36415; 85025; 85652; 86038; 86140